=== PATIENT | female | born 1970 | race Caucasian/White ===

== ENCOUNTER → 2018-10-26 20:38 | Outpatient (CLI) | payer OTHER, SELFPAY ==
--- NOTE | 2018-10-26 20:43 | DI.MRI.S_ITS ---
PROCEDURE: MR ANKLE RT WO CON INDICATIONS: PAIN IN RIGHT ANKLE TECHNIQUE: Noncontrast sagittal T1 spin echo and T2 fast spin echo with fat saturation, axial proton density fast spin echo and T2 fast spin echo with fat saturation, coronal T1 spin echo and T2 fast spin echo with fat saturation through the ankle/hindfoot. COMPARISON: None. FINDINGS: Image quality: Excellent. Bones and joints: No bone marrow contusions or fractures. No hindfoot coalitions. No osteochondral injuries of the talar dome. No pathologic joint effusions. There is circumferential subcutaneous soft tissue swelling and edema. Talonavicular and diffuse mixed joint degeneration. Medial structures: The posterior tibialis, flexor digitorum longus, and flexor hallucis longus tendons are intact, however there is mild thickening intrasubstance signal change at the insertion of the posterior tibialis tendon. There is also posterior tibialis and flexor digitorum longus tenosynovitis. The posterior tibial neurovascular bundle appears normal within the tarsal tunnel, without extrinsic mass effect. The deep layer (anterior and posterior tibiotalar ligaments) and superficial layer (tibionavicular, tibiospring, and tibiocalcaneal ligaments) of the deltoid ligament appear normal. The spring ligament components (superomedial calcaneonavicular, medioplantar oblique calcaneonavicular, and inferoplantar longitudinal ligaments) are intact. Lateral structures: The anterior talofibular demonstrates mild intrasubstance signal change in keeping with age indeterminate sprain. The calcaneofibular, and posterior talofibular ligaments appear intact. More superiorly, the anterior and posterior tibiofibular ligaments appear intact, as is the intermalleolar ligament. The tibiofibular syndesmosis is normal in width at 2 mm or less. The peroneus longus and brevis tendons demonstrate normal location and morphology. There is trace surrounding fluid in keeping with low-grade peroneal tenosynovitis. Adjacent bony peroneal tubercle and retrotrochlear prominence are normal in size. The sinus tarsi demonstrates normal fatty signal, without edema, fibrosis, or cyst formation. Visualized sinus tarsi components (cervical ligament, interosseous talocalcaneal ligament, roots of the inferior extensor retinaculum) appear normal. The calcaneonavicular and calcaneocuboid components of the bifurcate ligament appear intact. The dorsal calcaneocuboid ligament appears intact. Anterior structures: The tibialis anterior, extensor hallucis longus, and extensor digitorum longus tendons appear intact. The dorsal talonavicular ligament appears intact. Posterior and plantar structures: Achilles tendon is intact. Thickening of the medial band of the plantar fascia in keeping with plantar fasciitis. IMPRESSION: Severe circumferential subcutaneous soft tissue cellulitis. Mild posterior tibialis insertional tendinopathy. Posterior tibialis and flexor digitorum longus tenosynovitis. Medial band plantar fasciitis. Age-indeterminate low-grade sprain of the anterior talofibular ligament. Dictated by: Arun Miles M.D. on 10/27/2018 at 9:33 Approved by: Arun Miles M.D. on 10/27/2018 at 10:19
== END ==
PROVIDERS: Family Provider Family Medicine; PCP Family Medicine; Visit Provider Physician Assistant
DX: M25.571 Pain in right ankle and joints of right foot (principal); L03.115 Cellulitis of right lower limb; M65.861 Other synovitis and tenosynovitis, right lower leg; M72.2 Plantar fascial fibromatosis; S93.491A Sprain of other ligament of right ankle, initial encounter
CPT/HCPCS: 73721

== ENCOUNTER 2020-01-09 00:23 | Emergency (ER) | payer OTHER, SELFPAY ==
--- NOTE | 2020-01-09 00:35 | DI.CT.S_ITS ---
PROCEDURE: CT ABDOMEN PELVIS W CON INDICATIONS: Left-sided abdominal pain with bloody diarrhea TECHNIQUE: After the administration of intravenous contrast, 5 mm thick sections acquired from the diaphragm to the symphysis. 5 mm coronal and sagittal reformats were acquired. For radiation dose reduction, the following was used: automated exposure control, adjustment of mA and/or kV according to patient size. COMPARISON: [facility], CT, ABDOMEN/PELVIS WITH CONTRAST, 08/03/2010, 23:03. FINDINGS: Image quality: Excellent. ABDOMEN: Lung bases: Mild left basilar scars/atelectasis. Heart size is normal. Solid organs: Liver is normal in size and enhancement. Gallbladder is normal. Biliary system is non dilated. Pancreas enhances normally. Spleen is normal in size and enhancement. No adrenal nodules. Kidneys demonstrate normal size and enhancement, without hydronephrosis. Peritoneum and bowel: There is wall thickening and pericolonic stranding involving the transverse colon, splenic fracture and descending colon, consistent with colitis. Bowel loops demonstrate normal caliber. There are scattered colonic diverticula. No CT findings to suggest acute diverticulitis. No free fluid or air. Nodes and vessels: No retroperitoneal or mesenteric adenopathy by size criteria. Aorta and inferior vena cava are normal in size. Miscellaneous: There is a small fat containing umbilical hernia. PELVIS: Genitourinary: Bladder wall thickness is normal. The uterus is absent, consistent with hysterectomy. Ovaries are not well seen. No free fluid in pelvis. Miscellaneous: No inguinal hernias or adenopathy. Bones: No suspicious bony lesions. No vertebral body compression fractures. IMPRESSION: 1. Thickening and pericolonic stranding involving the transverse colon, splenic fracture and descending colon, consistent with colitis. 2. Diverticulosis without diverticulitis. 3. Hysterectomy. No significant discrepancy with the security shift manager radiology preliminary report. Dictated by: Reinier Benavides M.D. on 01/09/2020 at 8:35 Approved by: Reinier Benavides M.D. on 01/09/2020 at 8:45
--- NOTE | 2020-01-09 00:39 | ED.GENADULT ---
HPI - General Adult General Chief complaint: Abdominal Pain Stated complaint: watery/bloody diarrhea x 10 days side pain l Time Seen by Provider: 01/09/20 00:33 Source: patient Mode of arrival: Ambulatory Limitations: no limitations History of Present Illness HPI narrative: 49-year-old female here for evaluation of approximately 10 days of diarrhea. She does report that there has been some blood in the diarrhea. Over the past 24 hours she has developed left-sided abdominal pain. She does have a history of diverticulitis. Has had a colon resection secondary to this in the past. Earlier this month she completed a course of azithromycin for an upper respiratory infection. After this is when she developed the diarrhea. No recent travel. She has seen her primary doctor for this. Has had stool samples taken. They are currently pending. She came in this evening because of the left side of abdominal pain. Related Data Home Medications Medication Instructions Recorded Confirmed CHOLECALCIFEROL (VITAMIN D3) 1 tab PO Q DAY #0 08/20/10 05/14/19 (Vitamin D3) Esomeprazole Magnesium (Nexium) 40 mg PO QDAY #0 08/20/10 FLUTICASONE 50MCG BERRY INH- 1 spray INTRANASAL QDAY #0 08/20/10 (FLUTICASONE PROPIONATE) MULTIVITAMIN (Multivitamin 1 cap PO EVERY DAY #0 08/20/10 -) Methylphenidate Hydrochloride 10 mg PO QDAY #0 08/20/10 (Ritalin/Concerta) [ACIDOPHILUS PROBIOT] 1 tab PO Q DAY #0 08/20/10 [DHEA] 25 mg PO Q DAY #0 08/20/10 [FISH OIL] 1,200 mg PO Q DAY #0 08/20/10 [FLAXSEED OIL] 1,000 mg PO Q DAY #0 08/20/10 [SOY LECHITHIN] 1,200 mg PO Q DAY #0 08/20/10 Airborne PO DAILY 05/14/19 05/14/19 B12 melt 5,000 mcg PO 05/14/19 05/14/19 Jose Antonio Red joint care 1 tab PO 05/14/19 05/14/19 Turmeric/ w curcumin 2,000 mg PO DAILY 05/14/19 05/14/19 [LLYSINE] 1,000 mg PO Q DAY #0 05/14/19 05/14/19 cinnamon bark 500 mg capsule 2,000 mg PO DAILY cap 05/14/19 05/14/19 coenzyme Q10 400 mg capsule 400 mg PO DAILY 05/14/19 05/14/19 flaxseed oil 1,000 mg capsule 1,400 mg PO DAILY cap 05/14/19 05/14/19 meloxicam 15 mg tablet 15 mg PO DAILY 05/14/19 05/14/19 Allergies Allergy/AdvReac Type Severity Reaction Status Date / Time Iodine Allergy Unknown Uncoded 05/14/19 13:17 PCN (penicillin) Allergy Unknown Uncoded 05/14/19 13:17 Procaine Allergy Unknown Uncoded 05/14/19 13:17 Review of Systems Constitutional Constitutional: Denies fever(s) Cardiovascular Cardiovascular: Denies chest pain and Denies dyspnea Respiratory Respiratory: Denies dyspnea Gastrointestinal Gastrointestinal: Reports abdominal pain, Reports diarrhea and Denies nausea Genitourinary Genitourinary: Denies dysuria Musculoskeletal Musculoskeletal: Denies myalgias and Denies arthralgias Integumentary/Breasts Skin/Breast: Denies lesions and Denies rash Neurologic Neurologic: Denies behavioral changes Psychiatric Psychiatric: Denies behavioral changes Hematologic/Lymphatic Hematologic/Lymphatic: Denies easy bleeding and Denies easy bruising Patient History Medical History Diverticulitis (Acute) Social History Smoking Status: Never smoker Exam Initial Vital Signs Initial Vital Signs: Vital Signs Temperature 98.8 F 01/09/20 00:51 Pulse Rate 88 01/09/20 00:51 Respiratory Rate 17 01/09/20 00:51 Blood Pressure 133/84 01/09/20 00:51 Pulse Oximetry 99 01/09/20 00:51 Const General: cooperative and comfortable Limitations: mental status not altered Resp Effort & Inspection: normal respiratory effort Auscultation: clear to auscultation bilaterally Cardio Rate: regular rate Rhythm: regular rhythm GI Inspection: non-distended Palpation: soft, No firm and tender (Left lower quadrant) Skin Lesions: no lesions Rashes: no rashes Neuro General: alert and awake Cognition: normal cognition Speech: speech normal Extrem General: normal to inspection and capillary refill normal Psych Appearance: grossly normal and well kempt Course Orders Ordered: ED Orders 01/09/20 00:35 CT abdomen pelvis w con Stat EKG-12 Lead Stat 01/09/20 01:25 Complete Blood Count AUTO DIFF Stat Comprehensive Metabolic Panel Stat Lactate (Lactic Acid) Stat Lipase Stat Test Serum,Qual Stat Discontinued Medications Diphenhydramine HCl (Benadryl) 25 mg IV NOW ONE Stop: 01/09/20 00:44 Last Admin: 01/09/20 01:52 Dose: 25 mg Documented by: ÓSCAR Sodium Chloride (Normal Saline 0.9%) 1,000 mls @ 1,000 mls/hr IV BOLUS ONE Stop: 01/09/20 01:32 Last Admin: 01/09/20 02:23 Dose: 1,000 mls/hr Documented by: ÓSCAR Vital Signs Vital signs: Vital Signs - 8 hr 01/09/20 00:51 Temperature 98.8 F Pulse Rate 88 Respiratory Rate 17 Blood Pressure 133/84 Pulse Oximetry 99 Medical Decision Making Lab Data Lab results reviewed: Yes I reviewed the patient's lab results. Result diagrams: 01/09/20 01:25 01/09/20 01:25 Labs: Lab Results 01/09/20 01/09/20 01/09/20 Range/Units 01:25 01:25 01:25 WBC 12.1 H (4.5-11.0) X10^3/uL RBC 4.58 (4.0-5.2) X10^6/uL Hgb 12.7 (12.0-16.0) g/dL Hct 38.5 (36-46) % MCV 84.1 (80-100) fL MCH 27.6 (26-34) PG MCHC 32.9 (30-36) % RDW 13.6 (11.6-14.8) % Plt Count 305 (150-400) X10^3/uL Neut % (Auto) 69.6 (50-75) % Lymph % (Auto) 17.9 L (25-40) % [place] % (Auto) 7.6 (3-14) % Eos % (Auto) 4.4 H (2-4) % Baso % (Auto) 0.5 (0-2) % Neut # (Auto) 8400 H (7404-1641) /uL Lymph # (Auto) 2200 (8633-6651) /uL [place] # (Auto) 900 (0-900) /uL Eos # (Auto) 500 H (0-450) /uL Baso # (Auto) 100 (0-100) /uL Sodium 138 (137-145) mmol/L Potassium 3.6 (3.4-5.1) mmol/L Chloride 102 (98-107) mmol/L Carbon Dioxide 27 (22-32) mmol/L BUN 8 (7-17) mg/dL Creatinine 1.10 H (0.52-1.04) mg/dL Estimated GFR 52.6 L (>60) mL/min BUN/Creatinine Ratio 7.3 (6-22) Glucose 97 (70-100) mg/dL Lactate 1.2 (0.7-2.1) mmol/L Calcium 9.1 (8.4-10.2) mg/dL Total Bilirubin 1.0 (0.2-1.3) mg/dL AST 22 (14-36) IU/L ALT 10 (<35) IU/L Alkaline Phosphatase 149 H (38-126) U/L Total Protein 7.5 (6.3-8.2) g/dL Albumin 4.0 (3.5-5.0) g/dL Globulin 3.5 (1.7-4.1) g/dL Albumin/Globulin Ratio 1.1 (1.0-2.8) Lipase 47 (23-300) U/L Serum , Qual (Negative) 01/09/20 Range/Units 01:25 WBC (4.5-11.0) X10^3/uL RBC (4.0-5.2) X10^6/uL Hgb (12.0-16.0) g/dL Hct (36-46) % MCV (80-100) fL MCH (26-34) PG MCHC (30-36) % RDW (11.6-14.8) % Plt Count (150-400) X10^3/uL Neut % (Auto) (50-75) % Lymph % (Auto) (25-40) % [place] % (Auto) (3-14) % Eos % (Auto) (2-4) % Baso % (Auto) (0-2) % Neut # (Auto) (5381-6822) /uL Lymph # (Auto) (1253-6574) /uL [place] # (Auto) (0-900) /uL Eos # (Auto) (0-450) /uL Baso # (Auto) (0-100) /uL Sodium (137-145) mmol/L Potassium (3.4-5.1) mmol/L Chloride (98-107) mmol/L Carbon Dioxide (22-32) mmol/L BUN (7-17) mg/dL Creatinine (0.52-1.04) mg/dL Estimated GFR (>60) mL/min BUN/Creatinine Ratio (6-22) Glucose (70-100) mg/dL Lactate (0.7-2.1) mmol/L Calcium (8.4-10.2) mg/dL Total Bilirubin (0.2-1.3) mg/dL AST (14-36) IU/L ALT (<35) IU/L Alkaline Phosphatase (38-126) U/L Total Protein (6.3-8.2) g/dL Albumin (3.5-5.0) g/dL Globulin (1.7-4.1) g/dL Albumin/Globulin Ratio (1.0-2.8) Lipase (23-300) U/L Serum , Qual Negative (Negative) Imaging Data CT scan - abdomen/pelvis: Radiologist's Impression: Colon wall thickening consistent with colitis ECG Data Attestation: I personally reviewed and interpreted this ECG as follows: Prior ECG tracings: not available for review Interpretation: Sinus rhythm Ventricular rate 83 Normal QRS Normal QTC No ST T wave changes MDM Narrative Medical decision making narrative: Patient has a fairly benign abdominal exam. Has a slight leukocytosis which can be explained by the colitis. Patient was unable to provide a stool sample for us however she does have 1 pending with her primary care provider. We will hold on any antibiotics until this results. We did discuss colitis. No indication for admission to the hospital. We did discuss conservative treatment. Patient and who is at bedside expressed understanding and agreement. Discharge Plan Departure Patient Disposition: Home Clinical Impression: Colitis Instructions: Diarrhea Activity Restrictions/Additional Instructions: Recommend that you increase your fluid intake. We will hold on any antibiotics until the stool sample that you provided your primary provider results. Please contact your primary provider for a follow-up. Return to the emergency department for any new or worsening symptoms Prescriptions: No Action Esomeprazole Magnesium (Nexium) 40 mg PO QDAY Qty: 0 RF: 0 FLUTICASONE 50MCG BERRY INH- (FLUTICASONE PROPIONATE) 1 spray Intranasal QDAY Qty: 0 RF: 0 Methylphenidate Hydrochloride (Ritalin/Concerta) 10 mg PO QDAY Qty: 0 RF: 0 [FISH OIL] 1,200 mg PO Q DAY Qty: 0 RF: 0 [DHEA] 25 mg PO Q DAY Qty: 0 RF: 0 [FLAXSEED OIL] 1,000 mg PO Q DAY Qty: 0 RF: 0 [SOY LECHITHIN] 1,200 mg PO Q DAY Qty: 0 RF: 0 MULTIVITAMIN (Multivitamin -) 1 cap PO EVERY DAY Qty: 0 RF: 0 CHOLECALCIFEROL (VITAMIN D3) (Vitamin D3) 1 tab PO Q DAY Qty: 0 RF: 0 [ACIDOPHILUS PROBIOT] 1 tab PO Q DAY Qty: 0 RF: 0 [LLYSINE] 1,000 mg PO Q DAY Qty: 0 RF: 0 meloxicam 15 mg tablet 15 mg PO DAILY RF: 0 Jose Antonio Red joint care 1 tab PO RF: 0 B12 melt 5,000 mcg PO RF: 0 cinnamon bark 500 mg capsule 2,000 mg PO DAILY RF: 0 coenzyme Q10 [Co Q-10] 400 mg capsule 400 mg PO DAILY RF: 0 Airborne PO DAILY RF: 0 Turmeric/ w curcumin 2,000 mg PO DAILY RF: 0 flaxseed oil 1,000 mg capsule 1,400 mg PO DAILY RF: 0 Referrals: Randee Oconnell DO [Primary Care Provider] -
[2020-01-09 00:51] VITALS: BP 133/84; PULSE 88; RESP 17; TEMP 37.1; O2SAT 99; BMI 48.6
[2020-01-09 01:31] LABS: Add Manual Diff / Slide Review NO; Basophils Absolute Auto 100 /uL (0-100); Basophils Percent Auto 0.5 % (0-2); Eosinophils Absolute Auto 500 /uL (0-450); Eosinophils Percent Auto 4.4 % (2-4); Hematocrit 38.5 % (36-46); Hemoglobin 12.7 g/dL (12.0-16.0); Lymphocytes Absolute Auto 2200 /uL (1100-4500); Lymphocytes Percent Auto 17.9 % (25-40); Mean Corpuscular HGB Conc 32.9 % (30-36); Mean Corpuscular Hemoglobin 27.6 PG (26-34); Mean Corpuscular Volume 84.1 fL (80-100); Monocytes Absolute Auto 900 /uL (0-900); Monocytes Percent Auto 7.6 % (3-14); Neutrophils Absolute Auto 8400 /uL (1500-7000); Neutrophils Percent Auto 69.6 % (50-75); Platelet Count 305 X10^3/uL (150-400); Red Blood Cell Count 4.58 X10^6/uL (4.0-5.2); Red Cell Distribution Width 13.6 % (11.6-14.8); White Blood Cell Count 12.1 X10^3/uL (4.5-11.0)
[2020-01-09 01:43] LABS: Alanine Aminotransferase 10 IU/L (<35); Albumin Globulin Ratio 1.1 (1.0-2.8); Alkaline Phosphatase 149 U/L (38-126); Aspartate Aminotransferase 22 IU/L (14-36); BUN Creatinine Ratio 7.3 (6-22); Blood Urea Nitrogen 8 mg/dL (7-17); Calcium 9.1 mg/dL (8.4-10.2); Carbon Dioxide 27 mmol/L (22-32); Chloride 102 mmol/L (98-107); Estimated Glomerular Filt Rate 52.6 mL/min (>60); Globulin 3.5 g/dL (1.7-4.1); Glucose 97 mg/dL (70-100); HEMOLYSIS 15 (0-50); Lactate (Lactic Acid) 1.2 mmol/L (0.7-2.1); Lipase 47 U/L (23-300); Potassium 3.6 mmol/L (3.4-5.1); Sodium 138 mmol/L (137-145); Total Protein 7.5 g/dL (6.3-8.2)
[2020-01-09 01:44] LABS: Pregnancy Test Serum,Qual Negative (Negative)
[2020-01-09] MEDS: diphenhydrAMINE 50 MG/ML VIAL 25 MG IV (01:52)
[2020-01-09] MEDS: SODIUM CHLORIDE 0.9% 1,000 ML 1000 ML IV (02:23)
[2020-01-09 03:10] VITALS: BP 134/64; PULSE 80; RESP 15; O2SAT 98
== END 2020-01-09 03:11 | disposition home or self-care (01) ==
PROVIDERS: Emergency Provider Emergency Medicine; Family Provider Family Medicine; PCP Family Medicine
DX: K52.9 Noninfective gastroenteritis and colitis, unspecified (principal); R10.9 Unspecified abdominal pain
CPT/HCPCS: 36415; 74177; 80053; 83605; 83690; 84703; 85025; 93005; 96361; 96374; 99284; J1200; Q9967

== ENCOUNTER 2020-01-10 16:23 | Emergency (ER) | payer OTHER, SELFPAY ==
[2020-01-10 16:29] VITALS: BP 159/80; PULSE 92; RESP 16; TEMP 37.1; O2SAT 99
--- NOTE | 2020-01-10 16:30 | PC.NURSE ---
standing bp 146/73 hr 107 asymptomatic.
--- NOTE | 2020-01-10 16:47 | ED_ITS ---
HPI - Nausea/Vomiting/Diarrhea <Charan Dealan, DO - Last Filed: 01/11/20 08:24> General Chief complaint: Nausea/Vomiting/Diarrhea Stated complaint: water, bloody stool, abdominal cramping Time Seen by Provider: 01/10/20 16:25 Source: patient and family Mode of arrival: Ambulatory Limitations: no limitations History of Present Illness HPI Narrative: 49-year-old female nonsmoker presents to the emergency department with her in the chief complaint of ongoing diarrhea for upwards of 2 weeks. She had been on a [place] and symptoms started soon thereafter have consisted significant numbers of loose stools daily, upwards of 15 with the presence of blood. She is fatigued but not profoundly dizzy upon standing and has had no fever or chills. She does have a history of diverticulitis and had a CT a few days ago confirming colitis. She was seen in follow-up and started on Flagyl of which she has taken a few doses. She denies any recent international travel, exposure to bad foods or others with similar symptoms. MD complaint: diarrhea Onset (ago): week(s) Description of Diarrhea: watery Location of pain: diffuse Severity: moderate Quality: cramping Relieving factors: none Exacerbating factors: none Associated symptoms: denies other symptoms Related Data Home Medications Medication Instructions Recorded Confirmed Acidophilus Probiotic 1 tab PO Q DAY #0 08/20/10 01/10/20 CHOLECALCIFEROL (VITAMIN D3) 1 tab PO Q DAY #0 08/20/10 01/10/20 (Vitamin D3) [FISH OIL] 1,200 mg PO Q DAY #0 08/20/10 01/10/20 methylphenidate HCl 10 mg PO TID #0 08/20/10 01/10/20 multivitamin 1 cap PO DAILY #0 08/20/10 01/10/20 Airborne 1 tab PO DAILY 05/14/19 01/10/20 Turmeric/ w curcumin 2,000 mg PO DAILY 05/14/19 01/10/20 [LLYSINE] 1,000 mg PO Q DAY #0 05/14/19 01/10/20 cinnamon bark 500 mg capsule 2,000 mg PO DAILY cap 05/14/19 01/10/20 coenzyme Q10 400 mg capsule 400 mg PO DAILY 05/14/19 01/10/20 meloxicam 15 mg tablet 15 mg PO DAILY 05/14/19 01/10/20 cyanocobalamin (vitamin B-12) 5,000 mcg SUBLINGUAL DAILY 01/10/20 01/10/20 [Vitamin B-12] cyclobenzaprine 5 mg PO DAILY PRN 01/10/20 01/10/20 gabapentin 600 mg PO TID 01/10/20 01/10/20 metronidazole 500 mg PO Q8H 01/10/20 01/10/20 Previous Rx's Medication Instructions Recorded ciprofloxacin HCl [Cipro] 500 mg PO BID #20 tab 01/10/20 Allergies Allergy/AdvReac Type Severity Reaction Status Date / Time iodine Allergy Unknown Verified 01/10/20 21:17 Penicillins Allergy Unknown Verified 01/10/20 21:17 procaine Allergy Unknown Verified 01/10/20 21:17 Review of Systems <Charan Brewer DO - Last Filed: 01/11/20 08:24> Constitutional Constitutional: Denies chills, Denies fatigue, Denies fever(s), Denies frequent falls, Denies lethargy, Reports poor appetite and Reports weakness Eyes Eyes: Denies change in vision, Denies eye discharge, Denies irritation and Denies loss of vision ENT Ears, Nose, Mouth, and Throat: Denies change in voice, Denies dizziness, Denies neck pain, Denies sore throat and Denies throat swelling Cardiovascular Cardiovascular: Denies chest pain, Denies irregular heart rhythm, Denies lightheadedness, Denies palpitations, Denies dyspnea, Denies dyspnea on exertion and Denies orthopnea Respiratory Respiratory: Denies cough, Denies dyspnea, Denies dyspnea on exertion and Denies wheezing Gastrointestinal Gastrointestinal: Reports abdominal pain, Denies change in bowel habits, Reports diarrhea, Denies nausea and Denies vomiting Genitourinary Genitourinary: Denies hematuria, Denies flank pain, Denies urinary incontinence and Denies urinary urgency Musculoskeletal Musculoskeletal: Denies back pain, Denies muscle weakness, Denies neck pain, Denies numbness and Denies tingling Integumentary/Breasts Skin/Breast: Denies pruritus, Denies erythema, Denies rash and Denies wounds Neurologic Neurologic: Denies behavioral changes, Denies confusion, Denies dizziness, Denies frequent falls, Denies loss of vision, Denies numbness, Denies tingling and Reports weakness Psychiatric Psychiatric: Denies anxiety, Denies behavioral changes, Denies confusion, Denies depression, Denies homicidal ideation and Denies suicidal ideation Endocrine Endocrine: Denies fatigue, Denies flushing and Denies palpitations Hematologic/Lymphatic Hematologic/Lymphatic: Denies easy bruising Allergic/Immunologic Allergic/Immunologic: Denies urticaria, Denies throat swelling and Denies wheezing Patient History <Charan Brewer DO - Last Filed: 01/11/20 08:24> Medical History Diverticulitis (Acute) Social History Smoking Status: Never smoker Smoking Status: Never smoker alcohol intake frequency: 0-2 drinks per day Substance Use Type: does not use Exam <Charan Brewer DO - Last Filed: 01/11/20 08:24> Narrative Exam Narrative: GENERAL: [49] year old patient appears stated age. Well- nourished, well-developed patient, in mild distress. Rubbing her abdomen, largely her left lower quadrant HEAD: Atraumatic. Normocephalic. EYES: Pupils equal round and reactive. Extraocular motions intact. No scleral icterus. No injection or drainage. ENT: Nose without bleeding, purulent drainage. Throat without erythema, tonsillar hypertrophy or exudate. Airway patent. NECK: Trachea midline. Non tender CARDIOVASCULAR: Regular rate and rhythm without murmurs, gallops, or rubs. RESPIRATORY: Clear to auscultation. Breath sounds equal bilaterally. No wheezes, rales, or rhonchi. GASTROINTESTINAL: Abdomen soft, non-tender, nondistended. EXTREMITIES: No edema or joint tenderness. BACK: Nontender without deformity or crepitance. No flank tenderness. NEURO: AOx3. SKIN: No rash or erythema of visible areas Initial Vital Signs Initial Vital Signs: Vital Signs Temperature 98.7 F 01/10/20 16:29 Pulse Rate 92 H 01/10/20 16:29 Respiratory Rate 16 01/10/20 16:29 Blood Pressure 159/80 H 01/10/20 16:29 Pulse Oximetry 99 01/10/20 16:29 <Claribel Jacobson MD - Last Filed: 01/10/20 21:21> Initial Vital Signs Initial Vital Signs: Vital Signs Temperature 98.7 F 01/10/20 16:29 Pulse Rate 92 H 01/10/20 16:29 Respiratory Rate 16 01/10/20 16:29 Blood Pressure 159/80 H 01/10/20 16:29 Pulse Oximetry 99 01/10/20 16:29 Course <Charan Brewer DO - Last Filed: 01/11/20 08:24> Orders Ordered: Discontinued Medications Ciprofloxacin (Cipro) 750 mg PO NOW ONE Stop: 01/10/20 21:06 Last Admin: 01/10/20 21:14 Dose: 750 mg Documented by: ELMA Cyclobenzaprine HCl (Flexeril) 5 mg PO NOW ONE Stop: 01/10/20 20:36 Last Admin: 01/10/20 20:42 Dose: 5 mg Documented by: ELMA Hydromorphone HCl (Dilaudid) 0.5 mg IV NOW ONE Stop: 01/10/20 20:25 Last Admin: 01/10/20 20:29 Dose: 0.5 mg Documented by: ELMA Ondansetron HCl (Zofran) 4 mg IV NOW ONE Stop: 01/10/20 20:36 Last Admin: 01/10/20 20:47 Dose: Not Given Documented by: ELMA Ondansetron HCl (Zofran Odt) 4 mg SL NOW ONE Stop: 01/10/20 20:49 Last Admin: 01/10/20 21:01 Dose: 4 mg Documented by: ELMA Vital Signs Vital signs: Vital Signs - 8 hr 01/10/20 16:29 01/10/20 19:49 Temperature 98.7 F Pulse Rate 92 H 86 Respiratory Rate 16 16 Blood Pressure 159/80 H Blood Pressure [Right Wrist] 138/74 Pulse Oximetry 99 99 <Claribel Jacobson MD - Last Filed: 01/10/20 21:21> Orders Ordered: Discontinued Medications Ciprofloxacin (Cipro) 750 mg PO NOW ONE Stop: 01/10/20 21:06 Last Admin: 01/10/20 21:14 Dose: 750 mg Documented by: ELMA Cyclobenzaprine HCl (Flexeril) 5 mg PO NOW ONE Stop: 01/10/20 20:36 Last Admin: 01/10/20 20:42 Dose: 5 mg Documented by: ELMA Hydromorphone HCl (Dilaudid) 0.5 mg IV NOW ONE Stop: 01/10/20 20:25 Last Admin: 01/10/20 20:29 Dose: 0.5 mg Documented by: ELMA Ondansetron HCl (Zofran) 4 mg IV NOW ONE Stop: 01/10/20 20:36 Last Admin: 01/10/20 20:47 Dose: Not Given Documented by: ELMA Ondansetron HCl (Zofran Odt) 4 mg SL NOW ONE Stop: 01/10/20 20:49 Last Admin: 01/10/20 21:01 Dose: 4 mg Documented by: ELMA Vital Signs Vital signs: Vital Signs - 8 hr 01/10/20 16:29 01/10/20 19:49 Temperature 98.7 F Pulse Rate 92 H 86 Respiratory Rate 16 16 Blood Pressure 159/80 H Blood Pressure [Right Wrist] 138/74 Pulse Oximetry 99 99 MDM - Nausea/Vomiting/Diarrhea <Charan Brewer DO - Last Filed: 01/11/20 08:24> Lab Data Result diagrams: 01/10/20 17:05 01/10/20 17:05 Labs: Lab Results 01/10/20 01/10/20 01/10/20 Range/Units 17:05 17:05 17:05 WBC 11.8 H (4.5-11.0) X10^3/uL RBC 4.17 (4.0-5.2) X10^6/uL Hgb 11.7 L (12.0-16.0) g/dL Hct 35.0 L (36-46) % MCV 84.1 (80-100) fL MCH 28.1 (26-34) PG MCHC 33.4 (30-36) % RDW 13.7 (11.6-14.8) % Plt Count 338 (150-400) X10^3/uL Neut % (Auto) 74.1 (50-75) % Lymph % (Auto) 12.3 L (25-40) % [place] % (Auto) 9.5 (3-14) % Eos % (Auto) 3.3 (2-4) % Baso % (Auto) 0.8 (0-2) % Neut # (Auto) 8800 H (9153-2352) /uL Lymph # (Auto) 1500 (2849-3221) /uL [place] # (Auto) 1100 H (0-900) /uL Eos # (Auto) 400 (0-450) /uL Baso # (Auto) 100 (0-100) /uL PT 13.4 H (10.1-12.7) SECONDS INR 1.2 (0.9-1.3) APTT 29 (26.4-36.2) SECONDS Sodium 136 L (137-145) mmol/L Potassium 3.5 (3.4-5.1) mmol/L Chloride 100 (98-107) mmol/L Carbon Dioxide 27 (22-32) mmol/L BUN 9 (7-17) mg/dL Creatinine 1.10 H (0.52-1.04) mg/dL Estimated GFR 52.6 L (>60) mL/min BUN/Creatinine Ratio 8.2 (6-22) Glucose 101 H (70-100) mg/dL Calcium 8.9 (8.4-10.2) mg/dL Total Bilirubin 0.8 (0.2-1.3) mg/dL AST 20 (14-36) IU/L ALT 10 (<35) IU/L Alkaline Phosphatase 143 H (38-126) U/L Total Protein 7.0 (6.3-8.2) g/dL Albumin 3.5 (3.5-5.0) g/dL Globulin 3.5 (1.7-4.1) g/dL Albumin/Globulin Ratio 1.0 (1.0-2.8) Lipase 30 (23-300) U/L Urine RBC (0-5/HPF) Urine WBC (0-5/HPF) Ur Squamous Epith Cells (0-5/HPF) Urine Bacteria (None) Ur Culture Indicated? Micro UA Comment Stl C. cayetanensis PCR (Not Detect) Stool Rotavirus (PCR) (Not Detect) Stool Adenovirus (PCR) (Not Detect) Stool Astrovirus (PCR) (Not Detect) Stool Cryptosporidium PCR (Not Detect) Stl E.coli Shiga Tox PCR (Not Detect) St Sh/Enteroin Ecoli PCR (Not Detect) Stool E coli O157 PCR Stl Enterotoxigenic E PCR (Not Detect) Stool EPEC (PCR) (Not Detect) Stl E. histolytica PCR (Not Detect) Stool Giardia Lamblia PCR (Not Detect) Stool Sapovirus (PCR) (Not Detect) Stl P. shigelloides PCR (Not Detect) St Y.enterocolitica PCR (Not Detect) Stool Vibrio (PCR) (Not Detect) Stl Vibrio cholerae PCR (Not Detect) Stl Enteroaggr Ecoli PCR (Not Detect) Stl Norovirus GI/GII PCR (Not Detect) Campylobacter (PCR) (Not Detect) C. difficile Tox (PCR) (Not Detect) Salmonella (PCR) (Not Detect) 01/10/20 01/10/20 Range/Units 18:18 18:18 WBC (4.5-11.0) X10^3/uL RBC (4.0-5.2) X10^6/uL Hgb (12.0-16.0) g/dL Hct (36-46) % MCV (80-100) fL MCH (26-34) PG MCHC (30-36) % RDW (11.6-14.8) % Plt Count (150-400) X10^3/uL Neut % (Auto) (50-75) % Lymph % (Auto) (25-40) % [place] % (Auto) (3-14) % Eos % (Auto) (2-4) % Baso % (Auto) (0-2) % Neut # (Auto) (0227-3270) /uL Lymph # (Auto) (3857-5060) /uL [place] # (Auto) (0-900) /uL Eos # (Auto) (0-450) /uL Baso # (Auto) (0-100) /uL PT (10.1-12.7) SECONDS INR (0.9-1.3) APTT (26.4-36.2) SECONDS Sodium (137-145) mmol/L Potassium (3.4-5.1) mmol/L Chloride (98-107) mmol/L Carbon Dioxide (22-32) mmol/L BUN (7-17) mg/dL Creatinine (0.52-1.04) mg/dL Estimated GFR (>60) mL/min BUN/Creatinine Ratio (6-22) Glucose (70-100) mg/dL Calcium (8.4-10.2) mg/dL Total Bilirubin (0.2-1.3) mg/dL AST (14-36) IU/L ALT (<35) IU/L Alkaline Phosphatase (38-126) U/L Total Protein (6.3-8.2) g/dL Albumin (3.5-5.0) g/dL Globulin (1.7-4.1) g/dL Albumin/Globulin Ratio (1.0-2.8) Lipase (23-300) U/L Urine RBC 0-1/hpf (0-5/HPF) Urine WBC 1-5/hpf (0-5/HPF) Ur Squamous Epith Cells 1-5 /hpf (0-5/HPF) Urine Bacteria Few (2-10) H (None) Ur Culture Indicated? Specimen cultured Micro UA Comment Carolyn esterase + Stl C. cayetanensis PCR Not detected (Not Detect) Stool Rotavirus (PCR) Not detected (Not Detect) Stool Adenovirus (PCR) Not detected (Not Detect) Stool Astrovirus (PCR) Not detected (Not Detect) Stool Cryptosporidium PCR Not detected (Not Detect) Stl E.coli Shiga Tox PCR Not detected (Not Detect) St Sh/Enteroin Ecoli PCR Not detected (Not Detect) Stool E coli O157 PCR Not Reportable Stl Enterotoxigenic E PCR Not detected (Not Detect) Stool EPEC (PCR) Not detected (Not Detect) Stl E. histolytica PCR Not detected (Not Detect) Stool Giardia Lamblia PCR Not detected (Not Detect) Stool Sapovirus (PCR) Not detected (Not Detect) Stl P. shigelloides PCR Not detected (Not Detect) St Y.enterocolitica PCR Not detected (Not Detect) Stool Vibrio (PCR) Not detected (Not Detect) Stl Vibrio cholerae PCR Not detected (Not Detect) Stl Enteroaggr Ecoli PCR Not detected (Not Detect) Stl Norovirus GI/GII PCR Not detected (Not Detect) Campylobacter (PCR) Not detected (Not Detect) C. difficile Tox (PCR) Not detected (Not Detect) Salmonella (PCR) Not detected (Not Detect) Urine Dip Bedside Urine Glucose Negative Bedside Urine Bilirubin - Negative Bedside Urine Ketone +/- 5 Urine Specific [place] 1.010 Bedside Urine Occult Blood +/- Bedside Urine pH 6.5 Bedside Urine Protein +/- 15 Bedside Urine Urobilinogen - Negative Bedside Urine Nitrite - Negative Bedside Urine Leukocytes + 70 Esterase <Claribel L Laursen, MD - Last Filed: 01/10/20 21:21> Medical Records Attestation: I reviewed the patient's medical records. Lab Data Attestation: I reviewed the patient's lab results. Labs: Lab Results 01/10/20 01/10/20 01/10/20 Range/Units 17:05 17:05 17:05 WBC 11.8 H (4.5-11.0) X10^3/uL RBC 4.17 (4.0-5.2) X10^6/uL Hgb 11.7 L (12.0-16.0) g/dL Hct 35.0 L (36-46) % MCV 84.1 (80-100) fL MCH 28.1 (26-34) PG MCHC 33.4 (30-36) % RDW 13.7 (11.6-14.8) % Plt Count 338 (150-400) X10^3/uL Neut % (Auto) 74.1 (50-75) % Lymph % (Auto) 12.3 L (25-40) % [place] % (Auto) 9.5 (3-14) % Eos % (Auto) 3.3 (2-4) % Baso % (Auto) 0.8 (0-2) % Neut # (Auto) 8800 H (4873-5949) /uL Lymph # (Auto) 1500 (4234-4496) /uL [place] # (Auto) 1100 H (0-900) /uL Eos # (Auto) 400 (0-450) /uL Baso # (Auto) 100 (0-100) /uL PT 13.4 H (10.1-12.7) SECONDS INR 1.2 (0.9-1.3) APTT 29 (26.4-36.2) SECONDS Sodium 136 L (137-145) mmol/L Potassium 3.5 (3.4-5.1) mmol/L Chloride 100 (98-107) mmol/L Carbon Dioxide 27 (22-32) mmol/L BUN 9 (7-17) mg/dL Creatinine 1.10 H (0.52-1.04) mg/dL Estimated GFR 52.6 L (>60) mL/min BUN/Creatinine Ratio 8.2 (6-22) Glucose 101 H (70-100) mg/dL Calcium 8.9 (8.4-10.2) mg/dL Total Bilirubin 0.8 (0.2-1.3) mg/dL AST 20 (14-36) IU/L ALT 10 (<35) IU/L Alkaline Phosphatase 143 H (38-126) U/L Total Protein 7.0 (6.3-8.2) g/dL Albumin 3.5 (3.5-5.0) g/dL Globulin 3.5 (1.7-4.1) g/dL Albumin/Globulin Ratio 1.0 (1.0-2.8) Lipase 30 (23-300) U/L Urine RBC (0-5/HPF) Urine WBC (0-5/HPF) Ur Squamous Epith Cells (0-5/HPF) Urine Bacteria (None) Ur Culture Indicated? Micro UA Comment Stl C. cayetanensis PCR (Not Detect) Stool Rotavirus (PCR) (Not Detect) Stool Adenovirus (PCR) (Not Detect) Stool Astrovirus (PCR) (Not Detect) Stool Cryptosporidium PCR (Not Detect) Stl E.coli Shiga Tox PCR (Not Detect) St Sh/Enteroin Ecoli PCR (Not Detect) Stool E coli O157 PCR Stl Enterotoxigenic E PCR (Not Detect) Stool EPEC (PCR) (Not Detect) Stl E. histolytica PCR (Not Detect) Stool Giardia Lamblia PCR (Not Detect) Stool Sapovirus (PCR) (Not Detect) Stl P. shigelloides PCR (Not Detect) St Y.enterocolitica PCR (Not Detect) Stool Vibrio (PCR) (Not Detect) Stl Vibrio cholerae PCR (Not Detect) Stl Enteroaggr Ecoli PCR (Not Detect) Stl Norovirus GI/GII PCR (Not Detect) Campylobacter (PCR) (Not Detect) C. difficile Tox (PCR) (Not Detect) Salmonella (PCR) (Not Detect) 01/10/20 01/10/20 Range/Units 18:18 18:18 WBC (4.5-11.0) X10^3/uL RBC (4.0-5.2) X10^6/uL Hgb (12.0-16.0) g/dL Hct (36-46) % MCV (80-100) fL MCH (26-34) PG MCHC (30-36) % RDW (11.6-14.8) % Plt Count (150-400) X10^3/uL Neut % (Auto) (50-75) % Lymph % (Auto) (25-40) % [place] % (Auto) (3-14) % Eos % (Auto) (2-4) % Baso % (Auto) (0-2) % Neut # (Auto) (3039-6094) /uL Lymph # (Auto) (4394-5503) /uL [place] # (Auto) (0-900) /uL Eos # (Auto) (0-450) /uL Baso # (Auto) (0-100) /uL PT (10.1-12.7) SECONDS INR (0.9-1.3) APTT (26.4-36.2) SECONDS Sodium (137-145) mmol/L Potassium (3.4-5.1) mmol/L Chloride (98-107) mmol/L Carbon Dioxide (22-32) mmol/L BUN (7-17) mg/dL Creatinine (0.52-1.04) mg/dL Estimated GFR (>60) mL/min BUN/Creatinine Ratio (6-22) Glucose (70-100) mg/dL Calcium (8.4-10.2) mg/dL Total Bilirubin (0.2-1.3) mg/dL AST (14-36) IU/L ALT (<35) IU/L Alkaline Phosphatase (38-126) U/L Total Protein (6.3-8.2) g/dL Albumin (3.5-5.0) g/dL Globulin (1.7-4.1) g/dL Albumin/Globulin Ratio (1.0-2.8) Lipase (23-300) U/L Urine RBC 0-1/hpf (0-5/HPF) Urine WBC 1-5/hpf (0-5/HPF) Ur Squamous Epith Cells 1-5 /hpf (0-5/HPF) Urine Bacteria Few (2-10) H (None) Ur Culture Indicated? Specimen cultured Micro UA Comment Carolyn esterase + Stl C. cayetanensis PCR Not detected (Not Detect) Stool Rotavirus (PCR) Not detected (Not Detect) Stool Adenovirus (PCR) Not detected (Not Detect) Stool Astrovirus (PCR) Not detected (Not Detect) Stool Cryptosporidium PCR Not detected (Not Detect) Stl E.coli Shiga Tox PCR Not detected (Not Detect) St Sh/Enteroin Ecoli PCR Not detected (Not Detect) Stool E coli O157 PCR Not Reportable Stl Enterotoxigenic E PCR Not detected (Not Detect) Stool EPEC (PCR) Not detected (Not Detect) Stl E. histolytica PCR Not detected (Not Detect) Stool Giardia Lamblia PCR Not detected (Not Detect) Stool Sapovirus (PCR) Not detected (Not Detect) Stl P. shigelloides PCR Not detected (Not Detect) St Y.enterocolitica PCR Not detected (Not Detect) Stool Vibrio (PCR) Not detected (Not Detect) Stl Vibrio cholerae PCR Not detected (Not Detect) Stl Enteroaggr Ecoli PCR Not detected (Not Detect) Stl Norovirus GI/GII PCR Not detected (Not Detect) Campylobacter (PCR) Not detected (Not Detect) C. difficile Tox (PCR) Not detected (Not Detect) Salmonella (PCR) Not detected (Not Detect) Urine Dip Bedside Urine Glucose Negative Bedside Urine Bilirubin - Negative Bedside Urine Ketone +/- 5 Urine Specific [place] 1.010 Bedside Urine Occult Blood +/- Bedside Urine pH 6.5 Bedside Urine Protein +/- 15 Bedside Urine Urobilinogen - Negative Bedside Urine Nitrite - Negative Bedside Urine Leukocytes + [address] scan - abdomen/pelvis: Radiologist's Impression: From 01/09/2020 IMPRESSION: 1. Thickening and pericolonic stranding involving the transverse colon, splenic fracture and descending colon, consistent with colitis. 2. Diverticulosis without diverticulitis. 3. Hysterectomy. No significant discrepancy with the nitrate operator radiology preliminary report. Dictated by: Reinier Benavides M.D. on 01/09/2020 at 8:35 MDM Narrative Medical decision making narrative: Care is assumed. Patient has had increasing bloody diarrhea for the past 3 days. She was seen 48 hours ago and had a CT scan with results as above. Returns because she continues to have significant diarrhea. Not having dramatic fevers, she is able to keep liquids and food down. Only minimal nausea and this responds well to Phenergan which she does have available to her at home. She is exceptionally sensitive to multiple medications. She finds that Flexeril helps with the abdominal cramping she is having. Labs are reviewed and patient is reexamined. She is uncomfortable but her belly does not have any rebound or guarding in al priscila is not a surgical abdomen at this time. We reviewed options including hospital admission versus discharge home. Her is available to help at home, she is able to eat and drink and she would prefer to go home. She is now had a total of 3 oral doses of Flagyl this was started yesterday. Will add Cipro to that with a prescription given. She declines any narcotics to help with the abdominal cramping. After a previous abdominal surgery she was told by the surgeon to avoid anti diarrheal medications but Pepto would be okay if she had her current diarrhea episodes. 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 Stool PCR has returned and there is no evidence of infectious diarrhea or C diff at this time. In full consultation with the patient and her she will be discharged home will continue the Flagyl, will add Cipro, we use Pepto to help with diarrheal acute symptoms and Phenergan that she has available at home to help with nausea. If at any point she is unable to keep food down, pain is getting uncontrollable or she clearly is getting worse with fevers or any altered mental status she will return to the hospital for presumed admission at that time. Discharge Plan Departure Patient Disposition: Home Clinical Impression: Colitis Discharge Date/Time: 01/10/20 21:32 Instructions: DI for Colitis Activity Restrictions/Additional Instructions: Thank you for coming in Your stool sample does not show an infectious diarrhea and specifically you do not have Clostridium difficile. Your CT scan does suggest an acute colitis and your white blood cell count suggests that this likely is bacterial. Please continue the Flagyl that you have already started and to this I am going to add Cipro 500 mg daily. You can use Pepto-Bismol to help with the diarrhea symptoms. Please do filll your prescription for the hemorrhoid medications to try to keep these under control. I would not use [id number] antidiarrheals besides Pepto-Bismol at this time. You can use the Phenergan that you have at home to help with nausea. Please make sure that you are drinking plenty of fluids, whether that is Pedialyte or Gatorade both are acceptable. Food that is plain an easy to digest will be most helpful until the diarrhea, pain and fevers have completely resolved and then you can increase your diet as your stomach allows. If you find that you are getting worse, bleeding more, more fevers, pain is uncontrollable, can't keep fluids or food down, or have any alteration to mental status it is important that you return to the emergency room and we evaluate further. I hope you heal quickly Prescriptions: New ciprofloxacin HCl [Cipro] 500 mg tablet 500 mg PO BID Qty: 20 RF: 0 No Action methylphenidate HCl 10 mg Tablet 10 mg PO TID Qty: 0 RF: 0 [FISH OIL] 1,200 mg PO Q DAY Qty: 0 RF: 0 multivitamin Capsule 1 cap PO DAILY Qty: 0 RF: 0 CHOLECALCIFEROL (VITAMIN D3) (Vitamin D3) 1 tab PO Q DAY Qty: 0 RF: 0 Acidophilus Probiotic 1 tab PO Q DAY Qty: 0 RF: 0 [LLYSINE] 1,000 mg PO Q DAY Qty: 0 RF: 0 cyclobenzaprine 5 mg tablet 5 mg PO DAILY PRN (Reason: Spasms) RF: 0 gabapentin 300 mg capsule 600 mg PO TID RF: 0 metronidazole 500 mg Tablet 500 mg PO Q8H RF: 0 cyanocobalamin (vitamin B-12) [Vitamin B-12] 5,000 mcg Tablet, Sublingual 5,000 mcg SUBLINGUAL DAILY RF: 0 meloxicam 15 mg tablet 15 mg PO DAILY RF: 0 cinnamon bark 500 mg capsule 2,000 mg PO DAILY RF: 0 coenzyme Q10 [Co Q-10] 400 mg capsule 400 mg PO DAILY RF: 0 Airborne 1 tab PO DAILY RF: 0 Turmeric/ w curcumin 2,000 mg PO DAILY RF: 0 Referrals: Randee Oconnlel DO [Primary Care Provider] -
[2020-01-10 17:16] LABS: Add Manual Diff / Slide Review NO; Basophils Absolute Auto 100 /uL (0-100); Basophils Percent Auto 0.8 % (0-2); Eosinophils Absolute Auto 400 /uL (0-450); Eosinophils Percent Auto 3.3 % (2-4); Hemoglobin 11.7 g/dL (12.0-16.0); Lymphocytes Absolute Auto 1500 /uL (1100-4500); Lymphocytes Percent Auto 12.3 % (25-40); Mean Corpuscular HGB Conc 33.4 % (30-36); Mean Corpuscular Hemoglobin 28.1 PG (26-34); Mean Corpuscular Volume 84.1 fL (80-100); Monocytes Absolute Auto 1100 /uL (0-900); Monocytes Percent Auto 9.5 % (3-14); Neutrophils Absolute Auto 8800 /uL (1500-7000); Neutrophils Percent Auto 74.1 % (50-75); Platelet Count 338 X10^3/uL (150-400); Red Blood Cell Count 4.17 X10^6/uL (4.0-5.2); Red Cell Distribution Width 13.7 % (11.6-14.8); White Blood Cell Count 11.8 X10^3/uL (4.5-11.0)
[2020-01-10 17:26] LABS: INR 1.2 (0.9-1.3); Prothrombin Time 13.4 SECONDS (10.1-12.7)
[2020-01-10 17:28] LABS: Alanine Aminotransferase 10 IU/L (<35); Albumin 3.5 g/dL (3.5-5.0); Alkaline Phosphatase 143 U/L (38-126); Aspartate Aminotransferase 20 IU/L (14-36); BUN Creatinine Ratio 8.2 (6-22); Bilirubin Total 0.8 mg/dL (0.2-1.3); Blood Urea Nitrogen 9 mg/dL (7-17); Calcium 8.9 mg/dL (8.4-10.2); Carbon Dioxide 27 mmol/L (22-32); Chloride 100 mmol/L (98-107); Estimated Glomerular Filt Rate 52.6 mL/min (>60); Globulin 3.5 g/dL (1.7-4.1); Glucose 101 mg/dL (70-100); HEMOLYSIS < 15 (0-50); Lipase 30 U/L (23-300); PTT Partial Thromboplastin Tim 29 SECONDS (26.4-36.2); Potassium 3.5 mmol/L (3.4-5.1); Sodium 136 mmol/L (137-145)
[2020-01-10 19:20] LABS: Bacteria Urine Few (2-10); Culture Indicated Urine Specimen Cultured; RBC Urine 0-1/HPF (0-5/HPF); Squamous Epithelial Cell Urine 1-5 /HPF (0-5/HPF); Urine Comments LEU ESTERASE +; WBC Urine 1-5/HPF (0-5/HPF)
[2020-01-10 19:49] VITALS: BP 138/74; PULSE 86; RESP 16; O2SAT 99
[2020-01-10 20:27] LABS: Campylobacter Not Detected (Not Detect); Clostridium difficile toxin AB Not Detected (Not Detect); Enteroaggregative E.coli Not Detected (Not Detect); Enteropathogenic E.coli Not Detected (Not Detect); Enterotoxigenic E.coli It/st Not Detected (Not Detect); Plesiomonsa shigelloides Not Detected (Not Detect); Salmonella Not Detected (Not Detect); Shiga-like toxin-prod E.coli Not Detected (Not Detect); Vibrio Not Detected (Not Detect); Vibrio cholerae Not Detected (Not Detect); Yersinia enterocolitica Not Detected (Not Detect)
[2020-01-10 20:28] LABS: Adenovirus F 40/41 Not Detected (Not Detect); Astrovirus Not Detected (Not Detect); Cryptosporidium Not Detected (Not Detect); Cyclospora cayetanensis Not Detected (Not Detect); Entamoeba histolytica Not Detected (Not Detect); Giardia lamblia Not Detected (Not Detect); Norovirus GI/GII Not Detected (Not Detect); Rotavirus A Not Detected (Not Detect); Sapovirus Not Detected (Not Detect); Shigella/Enteroinvasive E.coli Not Detected (Not Detect)
[2020-01-10] MEDS: HYDROMORPHONE 0.5 MG INJ IV (20:29)
[2020-01-10] MEDS: CYCLOBENZAPRINE 5 MG TABLET PO (20:42)
[2020-01-10] MEDS: ONDANSETRON 4 MG ODT SL (21:01)
[2020-01-10] MEDS: CIPROFLOXACIN 250 MG TABLET 750 MG PO (21:14)
[2020-01-10 21:23] VITALS: BP 129/91; PULSE 98; RESP 18; O2SAT 93
== END 2020-01-10 21:32 | disposition home or self-care (01) ==
PROVIDERS: Emergency Medicine; Emergency Provider Emergency Medicine; Family Provider Family Medicine; PCP Family Medicine
DX: K52.9 Noninfective gastroenteritis and colitis, unspecified (principal)
CPT/HCPCS: 36415; 80053; 81003; 81015; 83690; 85025; 85610; 85730; 87086; 87507; 93005; 96374; 99284; J1170; J2405

== ENCOUNTER 2020-07-02 13:28 | Inpatient (IN) | payer OTHER, SELFPAY ==
[2020-07-02] VITALS (15 sets, daily range): BP systolic 120–162; BP diastolic 64–88; PULSE 80–93; RESP 16–24; TEMP 36.4–36.7; O2SAT 81–100; BMI 43.3
--- NOTE | 2020-07-02 13:59 | ED_ITS ---
HPI - Nausea/Vomiting/Diarrhea General Chief complaint: Nausea/Vomiting/Diarrhea Stated complaint: pnuemonia, meds not helping, feels worse Time Seen by Provider: 07/02/20 13:44 Source: patient Mode of arrival: Ambulatory History of Present Illness HPI Narrative: Patient complains of nonbloody nausea vomiting but has bloody diarrhea for the past 2 weeks. Patient seen by [facility] physician 2 weeks ago diagnosed with pneumonia by x-ray started doxycycline in 3 days later started nausea vomiting diarrhea. Patient is very sensitive to antibiotics with stomach/GI system upset. Decreased urine output. Has felt very tired and weak. Hemorrhoids have flared up in primary care has tried medication without effect. MD complaint: nausea, vomiting and diarrhea Related Data Home Medications Medication Instructions Recorded Confirmed Acidophilus Probiotic 1 tab PO Q DAY #0 08/20/10 01/10/20 CHOLECALCIFEROL (VITAMIN D3) 1 tab PO Q DAY #0 08/20/10 01/10/20 (Vitamin D3) [FISH OIL] 1,200 mg PO Q DAY #0 08/20/10 01/10/20 methylphenidate HCl 10 mg PO TID #0 08/20/10 01/10/20 multivitamin 1 cap PO DAILY #0 08/20/10 01/10/20 Airborne 1 tab PO DAILY 05/14/19 01/10/20 Turmeric/ w curcumin 2,000 mg PO DAILY 05/14/19 01/10/20 [LLYSINE] 1,000 mg PO Q DAY #0 05/14/19 01/10/20 cinnamon bark 500 mg capsule 2,000 mg PO DAILY cap 05/14/19 01/10/20 coenzyme Q10 400 mg capsule 400 mg PO DAILY 05/14/19 01/10/20 meloxicam 15 mg tablet 15 mg PO DAILY 05/14/19 01/10/20 cyanocobalamin (vitamin B-12) 5,000 mcg SUBLINGUAL DAILY 01/10/20 01/10/20 [Vitamin B-12] cyclobenzaprine 5 mg PO DAILY PRN 01/10/20 01/10/20 gabapentin 600 mg PO TID 01/10/20 01/10/20 metronidazole 500 mg PO Q8H 01/10/20 01/10/20 Previous Rx's Medication Instructions Recorded ciprofloxacin HCl [Cipro] 500 mg PO BID #20 tab 01/10/20 Allergies Allergy/AdvReac Type Severity Reaction Status Date / Time iodine Allergy Unknown Verified 01/10/20 21:17 Penicillins Allergy Unknown Verified 01/10/20 21:17 procaine Allergy Unknown Verified 01/10/20 21:17 Review of Systems Review of Systems Narrative: GENERAL: Denies chills, fatigue, malaise, fever, sweats. HEENT: Denies sinus pain, ear pain, sore throat, difficulty swallowing, dizziness. RESPIRATORY: Denies dyspnea, cough, wheezing, hemoptysis, sputum. CARDIOVASCULAR: Denies chest pain, palpitations, orthopnea, edema, GASTROINTESTINAL: Complains of nausea, vomiting, abdominal pain, bloody diarrhea, denies constipation : Denies dysuria, frequency, incontinence, hematuria, urinary retention. MUSCULOSKELETAL: denies weakness, joint pain, or bony pain SKIN: Denies rash, skin lesions, or other NEUROLOGIC: Denies weakness, headache, numbness, change in speech, confusion, seizures, incoordination. PSYCHIATRIC: No concerning psychosocial issues. ROS Unobtainable: All systems reviewed & are unremarkable except as noted in HPI and below Patient History Medical History Diverticulitis (Acute) Social History Smoking Status: Never smoker Smoking Status: Never smoker alcohol intake frequency: 0-2 drinks per day Substance Use Type: does not use Exam Narrative Exam Narrative: GENERAL: patient appears stated age. Well-nourished, well- developed patient, in no distress, not toxic HEAD: Atraumatic. Normocephalic. EYES: Pupils equal round and reactive. Extraocular motions intact. No scleral icterus. No injection or drainage. ENT: Nose without bleeding, purulent drainage. Throat without erythema, tonsillar hypertrophy or exudate. Airway patent. Tongue with thrush NECK: Trachea midline. Non tender CARDIOVASCULAR: Regular rate and rhythm without murmurs, gallops, or rubs. RESPIRATORY: Clear to auscultation. Breath sounds equal bilaterally. No wheezes, rales, or rhonchi. GASTROINTESTINAL: Abdomen soft, non-tender, nondistended. 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 Multiple external tender hemorrhoids. Not bleeding at this time. Some are reducible but patient unable to tolerate further efforts. EXTREMITIES: No edema or joint tenderness. BACK: Nontender without deformity or crepitance. No flank tenderness. NEURO: AOx3. SKIN: No rash or erythema of visible areas PSYCH: Not anxious, is cooperative Initial Vital Signs Initial Vital Signs: Vital Signs Temperature 97.5 F L 07/02/20 13:35 Pulse Rate 93 H 07/02/20 13:35 Respiratory Rate 24 07/02/20 13:35 Blood Pressure 132/84 07/02/20 13:35 Pulse Oximetry 98 07/02/20 13:35 Course Course Course Narrative: Second episode of colitis this year. This episode more severe. Would benefit admission Decision to Admit Date: 07/02/20 Decision to Admit time: 16:22 Orders Ordered: ED Orders 07/02/20 13:57 XR chest 1V Stat 07/02/20 14:30 Complete Blood Count AUTO DIFF Stat Comprehensive Metabolic Panel Stat Lipase Stat Magnesium Stat Partial Thromboplastin Time Stat Procalcitonin Stat Prothrombin Time INR Stat Troponin & CK Cardiac Panel Stat 07/02/20 14:45 CT abdomen pelvis wo con Stat 07/02/20 16:50 Clostridium Difficile Tox PCR Stat Stool Culture Stat 07/02/20 17:06 Blood Culture Stat Discontinued Medications Sodium Chloride (Normal Saline 0.9%) 1,000 mls @ 1,000 mls/hr IV BOLUS ONE Stop: 07/02/20 14:55 Last Infusion: 07/02/20 16:00 Dose: 0 mls/hr Documented by: Admin: 07/02/20 14:40 Dose: 1,000 mls/hr Documented by: REYNA Metronidazole (Flagyl) 500 mg in 100 mls @ 100 mls/hr IV NOW ONE Stop: 07/02/20 16:44 Last Admin: 07/02/20 17:10 Dose: 100 mls/hr Documented by: KRIS Vancomycin HCl (Vancomycin) 1,000 mg in 200 mls @ 200 mls/hr IV NOW ONE Stop: 07/02/20 16:44 Ondansetron HCl (Zofran) 4 mg IV NOW ONE Stop: 07/02/20 13:57 Last Admin: 07/02/20 17:04 Dose: 4 mg Documented by: REYNA Potassium Chloride (Klor-Con M20) 40 meq PO NOW ONE Stop: 07/02/20 16:04 Last Admin: 07/02/20 17:10 Dose: 40 meq Documented by: BTONER Reevaluation(s) Reevaluation #1: No new issues. Not toxic appearing. Has been up and walking to the bathroom. at bedside Time: 16:22 Consultations Consultation #1: Spoke with hospitalist, Dr. Zavaleta, will admit Time: 16:22 Consultation #2: Spoke with general surgery Dr. Carranza, currently in the operating room. Will call back for further details. Time: 16:23 Consultation #3: Spoke with Dr. Carranza, he will follow-up patient Time: 17:15 Vital Signs Vital signs: Vital Signs - 8 hr 07/02/20 13:35 07/02/20 14:02 07/02/20 14:30 Temperature 97.5 F L Pulse Rate 93 H 80 80 Respiratory Rate 24 Blood Pressure 132/84 Pulse Oximetry 98 100 100 MDM - Nausea/Vomiting/Diarrhea Medical Records Attestation: I reviewed the patient's medical records. Lab Data Attestation: I reviewed the patient's lab results. Result diagrams: 07/02/20 14:30 07/02/20 14:30 Labs: Lab Results 07/02/20 07/02/20 07/02/20 Range/Units 14:30 14:30 14:30 WBC 10.1 (4.5-11.0) X10^3/uL RBC 4.19 (4.0-5.2) X10^6/uL Hgb 10.8 L (12.0-16.0) g/dL Hct 32.8 L (36-46) % MCV 78.3 L (80-100) fL MCH 25.8 L (26-34) PG MCHC 33.0 (30-36) % RDW 15.6 H (11.6-14.8) % Plt Count 580 H (150-400) X10^3/uL Neut % (Auto) 70.2 (50-75) % Lymph % (Auto) 18.2 L (25-40) % [place] % (Auto) 8.2 (3-14) % Eos % (Auto) 3.1 (2-4) % Baso % (Auto) 0.3 (0-2) % Neut # (Auto) 7100 H (0272-5384) /uL Lymph # (Auto) 1800 (2160-2951) /uL [place] # (Auto) 800 (0-900) /uL Eos # (Auto) 300 (0-450) /uL Baso # (Auto) 0 (0-100) /uL PT 13.9 H (10.1-12.7) SECONDS INR 1.2 (0.9-1.3) APTT 24 L D (26.4-36.2) SECONDS Sodium 135 L (137-145) mmol/L Potassium 3.1 L (3.4-5.1) mmol/L Chloride 96 L (98-107) mmol/L Carbon Dioxide 34 H (22-32) mmol/L BUN 12 (7-17) mg/dL Creatinine 1.07 H (0.52-1.04) mg/dL Estimated GFR 54.1 L (>60) mL/min BUN/Creatinine Ratio 11.2 (6-22) Glucose 95 (70-100) mg/dL Calcium 8.8 (8.4-10.2) mg/dL Magnesium (1.6-2.3) mg/dL Total Bilirubin 0.7 (0.2-1.3) mg/dL AST 35 (14-36) IU/L ALT 12 (<35) IU/L Alkaline Phosphatase 177 H (38-126) U/L Total Creatine Kinase (30-135) U/L CK-MB (CK-2) CK-MB (CK-2) Rel Index Troponin I (0.01-0.034) ng/mL Total Protein 6.3 (6.3-8.2) g/dL Albumin 2.8 L (3.5-5.0) g/dL Globulin 3.5 (1.7-4.1) g/dL Albumin/Globulin Ratio 0.8 L (1.0-2.8) Lipase 24 (23-300) U/L Procalcitonin (<0.5) ng/mL COVID-19 PCR (Negative) 07/02/20 07/02/20 07/02/20 Range/Units 14:30 14:30 14:30 WBC (4.5-11.0) X10^3/uL RBC (4.0-5.2) X10^6/uL Hgb (12.0-16.0) g/dL Hct (36-46) % MCV (80-100) fL MCH (26-34) PG MCHC (30-36) % RDW (11.6-14.8) % Plt Count (150-400) X10^3/uL Neut % (Auto) (50-75) % Lymph % (Auto) (25-40) % [place] % (Auto) (3-14) % Eos % (Auto) (2-4) % Baso % (Auto) (0-2) % Neut # (Auto) (9188-5528) /uL Lymph # (Auto) (4698-6975) /uL [place] # (Auto) (0-900) /uL Eos # (Auto) (0-450) /uL Baso # (Auto) (0-100) /uL PT (10.1-12.7) SECONDS INR (0.9-1.3) APTT (26.4-36.2) SECONDS Sodium (137-145) mmol/L Potassium (3.4-5.1) mmol/L Chloride (98-107) mmol/L Carbon Dioxide (22-32) mmol/L BUN (7-17) mg/dL Creatinine (0.52-1.04) mg/dL Estimated GFR (>60) mL/min BUN/Creatinine Ratio (6-22) Glucose (70-100) mg/dL Calcium (8.4-10.2) mg/dL Magnesium 2.6 H (1.6-2.3) mg/dL Total Bilirubin (0.2-1.3) mg/dL AST (14-36) IU/L ALT (<35) IU/L Alkaline Phosphatase (38-126) U/L Total Creatine Kinase 26 L (30-135) U/L CK-MB (CK-2) TNP CK-MB (CK-2) Rel Index TNP Troponin I < 0.012 (0.01-0.034) ng/mL Total Protein (6.3-8.2) g/dL Albumin (3.5-5.0) g/dL Globulin (1.7-4.1) g/dL Albumin/Globulin Ratio (1.0-2.8) Lipase (23-300) U/L Procalcitonin 0.24 (<0.5) ng/mL COVID-19 PCR (Negative) 07/02/20 Range/Units 15:50 WBC (4.5-11.0) X10^3/uL RBC (4.0-5.2) X10^6/uL Hgb (12.0-16.0) g/dL Hct (36-46) % MCV (80-100) fL MCH (26-34) PG MCHC (30-36) % RDW (11.6-14.8) % Plt Count (150-400) X10^3/uL Neut % (Auto) (50-75) % Lymph % (Auto) (25-40) % [place] % (Auto) (3-14) % Eos % (Auto) (2-4) % Baso % (Auto) (0-2) % Neut # (Auto) (0887-6156) /uL Lymph # (Auto) (1225-9877) /uL [place] # (Auto) (0-900) /uL Eos # (Auto) (0-450) /uL Baso # (Auto) (0-100) /uL PT (10.1-12.7) SECONDS INR (0.9-1.3) APTT (26.4-36.2) SECONDS Sodium (137-145) mmol/L Potassium (3.4-5.1) mmol/L Chloride (98-107) mmol/L Carbon Dioxide (22-32) mmol/L BUN (7-17) mg/dL Creatinine (0.52-1.04) mg/dL Estimated GFR (>60) mL/min BUN/Creatinine Ratio (6-22) Glucose (70-100) mg/dL Calcium (8.4-10.2) mg/dL Magnesium (1.6-2.3) mg/dL Total Bilirubin (0.2-1.3) mg/dL AST (14-36) IU/L ALT (<35) IU/L Alkaline Phosphatase (38-126) U/L Total Creatine Kinase (30-135) U/L CK-MB (CK-2) CK-MB (CK-2) Rel Index Troponin I (0.01-0.034) ng/mL Total Protein (6.3-8.2) g/dL Albumin (3.5-5.0) g/dL Globulin (1.7-4.1) g/dL Albumin/Globulin Ratio (1.0-2.8) Lipase (23-300) U/L Procalcitonin (<0.5) ng/mL COVID-19 PCR Negative (Negative) Point of Care Testing Test Results Negative Urine Dip Bedside Urine Glucose Negative Bedside Urine Bilirubin - Negative Bedside Urine Ketone - Negative Urine Specific [place] 1.010 Bedside Urine Occult Blood ++ Bedside Urine pH 6.0 Bedside Urine Protein +/- 15 Bedside Urine Urobilinogen - Negative Bedside Urine Nitrite - Negative Bedside Urine Leukocytes ++ 125 Esterase Imaging Data Chest x-ray: Radiologist's Impression: [address] [address] XRay Report Signed Patient: Ashley Winter EMR#: [id number] : 1970Acct:[id number] Age/Sex: 50 / FDate of Service: 07/02/20 Loc: ED Accession Number: [id number] Procedure: XR chest 1V Ordering Provider: Cody Bal MD PROCEDURE: XR CHEST 1V INDICATIONS: Dyspnea TECHNIQUE: One view of the chest was acquired. COMPARISON: [facility], , CHEST 2 VIEW, 10/21/2014, 5:55. FINDINGS: Suboptimal evaluation secondary to positioning factors. Surgical changes and devices: None. Lungs and pleura: Lungs are clear. No pleural effusions or pneumothorax. Mediastinum: Mediastinal contours appear normal. Heart size is normal. Bones and chest wall: No suspicious bony lesions. Overlying soft tissues appear unremarkable. IMPRESSION: No acute process. Dictated by: Steve Smyth M.D. on 07/02/2020 at 14:08 Approved by: Steve Smyth M.D. on 07/02/2020 at 14:09 CT scan - abdomen/pelvis: Radiologist's Impression: [address] [address] [address] Scan Report Signed Patient: Ashley Winter EMR#: [id number] : 1970Acct:[id number] Age/Sex: 50 / FDate of Service: 07/02/20 Loc: ED Accession Number: [id number] Procedure: CT abdomen pelvis wo con Ordering Provider: Cody Bal MD PROCEDURE: CT ABDOMEN PELVIS WO CON INDICATIONS: Nausea vomiting and diarrhea TECHNIQUE: Noncontrast 5 mm thick sections acquired from the diaphragms to the symphysis. 5 mm coronal and sagittal reformats were then performed. For radiation dose reduction, the following was used: automated exposure control, adjustment of mA and/or kV a ccording to patient size. COMPARISON: [facility], CT, CT ABDOMEN PELVIS W CON, 01/09/2020, 0:36. FINDINGS: Image quality: Excellent. ABDOMEN: Lung bases: Minimal bibasilar atelectasis. Lung bases are otherwise clear. Heart size is normal. Solid organs: Liver is normal in size. Diffuse hepatic steatosis. Gallbladder is unremarkable. . Pancreas is normal in contours. Spleen is normal in size. No adrenal nodules. Kidneys are normal in size, without hydronephrosis or nephrolithiasis. Peritoneum and bowel: Unenhanced bowel loops demonstrate diffuse, circumferential wall thickening and pericolonic stranding throughout the entire colon from the level of the cecum to the rectum. There are numerous prominent lymph nodes noted adjacent to the course of the colon as well as in the presacral space. These are likely reactive in etiology. Stable postsurgical changes at the proximal sigmoid colon from prior hemicolectomy. No free fluid or air. Nodes and vessels: No retroperitoneal or mesenteric adenopathy by size criteria. Aorta and inferior vena cava are normal in caliber. Miscellaneous: No ventral hernias. There is a fat-containing umbilical hernia without acute inflammation. PELVIS: Genitourinary: Bladder wall thickness is normal. Status post hysterectomy. Miscellaneous: No inguinal hernias or adenopathy. Bones: No suspicious bony lesions. No vertebral body compression fractures. IMPRESSION: 1. Thickening and pericolonic stranding of the entire visualized colon from the cecum to the rectum compatible with colitis. There are numerous, likely reactive lymph nodes paralleling the course of the colon as well as the presacral space. No focal mass lesion or asymmetric bowel wall thickening identified. Recommend further evaluation with routine follow-up colonoscopy after resolution of acute symptoms. 2. Diffuse hepatic steatosis with mild associated hepatomegaly. Dictated by: Chapo Valladares M.D. on 07/02/2020 at 15:02 Approved by: Chapo Valladares M.D. on 07/02/2020 at 15:15 [facility] Narrative Medical decision making narrative: Admitting patient for possible colonoscopy. Pancolitis worse on CT scan than previous CT scan. Possible C diff as patient has had recent antibiotics doxycycline to treat for pneumonia. Discharge Plan Departure Patient Disposition: Admitted As Inpatient Clinical Impression: Colitis Discharge Date/Time: 07/02/20 16:17 Admit Date/Time: 07/02/20 16:15 Admit Provider: Robyn Zavaleta
[2020-07-02] MEDS: SODIUM CHLORIDE 0.9% 1,000 ML 1000 ML IV (14:40)
--- NOTE | 2020-07-02 14:45 | DI.CT.S_ITS ---
PROCEDURE: CT ABDOMEN PELVIS WO CON INDICATIONS: Nausea vomiting and diarrhea TECHNIQUE: Noncontrast 5 mm thick sections acquired from the diaphragms to the symphysis. 5 mm coronal and sagittal reformats were then performed. For radiation dose reduction, the following was used: automated exposure control, adjustment of mA and/or kV according to patient size. COMPARISON: [facility], CT, CT ABDOMEN PELVIS W CON, 01/09/2020, 0:36. FINDINGS: Image quality: Excellent. ABDOMEN: Lung bases: Minimal bibasilar atelectasis. Lung bases are otherwise clear. Heart size is normal. Solid organs: Liver is normal in size. Diffuse hepatic steatosis. Gallbladder is unremarkable. . Pancreas is normal in contours. Spleen is normal in size. No adrenal nodules. Kidneys are normal in size, without hydronephrosis or nephrolithiasis. Peritoneum and bowel: Unenhanced bowel loops demonstrate diffuse, circumferential wall thickening and pericolonic stranding throughout the entire colon from the level of the cecum to the rectum. There are numerous prominent lymph nodes noted adjacent to the course of the colon as well as in the presacral space. These are likely reactive in etiology. Stable postsurgical changes at the proximal sigmoid colon from prior hemicolectomy. No free fluid or air. Nodes and vessels: No retroperitoneal or mesenteric adenopathy by size criteria. Aorta and inferior vena cava are normal in caliber. Miscellaneous: No ventral hernias. There is a fat-containing umbilical hernia without acute inflammation. PELVIS: Genitourinary: Bladder wall thickness is normal. Status post hysterectomy. Miscellaneous: No inguinal hernias or adenopathy. Bones: No suspicious bony lesions. No vertebral body compression fractures. IMPRESSION: 1. Thickening and pericolonic stranding of the entire visualized colon from the cecum to the rectum compatible with colitis. There are numerous, likely reactive lymph nodes paralleling the course of the colon as well as the presacral space. No focal mass lesion or asymmetric bowel wall thickening identified. Recommend further evaluation with routine follow-up colonoscopy after resolution of acute symptoms. 2. Diffuse hepatic steatosis with mild associated hepatomegaly. Dictated by: Chapo Valladares M.D. on 07/02/2020 at 15:02 Approved by: Chapo Valladares M.D. on 07/02/2020 at 15:15
[2020-07-02 14:46] LABS: INR 1.2 (0.9-1.3); Prothrombin Time 13.9 SECONDS (10.1-12.7)
[2020-07-02 14:47] LABS: Add Manual Diff / Slide Review NO; Basophils Absolute Auto 0 /uL (0-100); Basophils Percent Auto 0.3 % (0-2); Eosinophils Absolute Auto 300 /uL (0-450); Eosinophils Percent Auto 3.1 % (2-4); Hematocrit 32.8 % (36-46); Hemoglobin 10.8 g/dL (12.0-16.0); Lymphocytes Absolute Auto 1800 /uL (1100-4500); Lymphocytes Percent Auto 18.2 % (25-40); Mean Corpuscular Hemoglobin 25.8 PG (26-34); Mean Corpuscular Volume 78.3 fL (80-100); Monocytes Absolute Auto 800 /uL (0-900); Monocytes Percent Auto 8.2 % (3-14); Neutrophils Absolute Auto 7100 /uL (1500-7000); Neutrophils Percent Auto 70.2 % (50-75); Platelet Count 580 X10^3/uL (150-400); Red Blood Cell Count 4.19 X10^6/uL (4.0-5.2); Red Cell Distribution Width 15.6 % (11.6-14.8); White Blood Cell Count 10.1 X10^3/uL (4.5-11.0)
[2020-07-02 14:49] LABS: PTT Partial Thromboplastin Tim 24 SECONDS (26.4-36.2)
[2020-07-02 14:50] LABS: Creatine Kinase 26 U/L (30-135)
[2020-07-02 14:51] LABS: Alanine Aminotransferase 12 IU/L (<35); Albumin 2.8 g/dL (3.5-5.0); Albumin Globulin Ratio 0.8 (1.0-2.8); Alkaline Phosphatase 177 U/L (38-126); Aspartate Aminotransferase 35 IU/L (14-36); BUN Creatinine Ratio 11.2 (6-22); Bilirubin Total 0.7 mg/dL (0.2-1.3); Blood Urea Nitrogen 12 mg/dL (7-17); Calcium 8.8 mg/dL (8.4-10.2); Carbon Dioxide 34 mmol/L (22-32); Chloride 96 mmol/L (98-107); Estimated Glomerular Filt Rate 54.1 mL/min (>60); Globulin 3.5 g/dL (1.7-4.1); Glucose 95 mg/dL (70-100); HEMOLYSIS < 15 (0-50); Lipase 24 U/L (23-300); Potassium 3.1 mmol/L (3.4-5.1); Sodium 135 mmol/L (137-145); Total Protein 6.3 g/dL (6.3-8.2)
[2020-07-02 15:03] LABS: Troponin I < 0.012 ng/mL (0.01-0.034)
[2020-07-02] MEDS: ONDANSETRON 4 MG/2 ML INJ IV (17:04)
[2020-07-02] MEDS: metroNIDAZOLE 500 MG/100 ML PIGGYBACK 100 MG IV ×2 (17:10→23:37)
[2020-07-02] MEDS: POTASSIUM CHLORIDE 20 MEQ TAB 40 MEQ PO (17:10)
[2020-07-02 17:12] LABS: COVID19 -Nasal RAPID Negative (Negative)
[2020-07-02 17:16] LABS: Magnesium 2.6 mg/dL (1.6-2.3)
[2020-07-02 17:44] LABS: Procalcitonin 0.24 ng/mL (<0.5)
[2020-07-02] MEDS: VANCOMYCIN 1,000 MG/200 ML PIGGYBACK 200 MG IV (18:25)
[2020-07-02 18:35] LABS: Clostridium Difficile Tox PCR Negative for C. diff
[2020-07-02] MEDS: LACTATED RINGERS 1,000 ML 100 ML IV (21:55)
[2020-07-02] MEDS: KETOROLAC 15 MG/ML VIAL IV (22:00)
[2020-07-02] MEDS: PANTOPRAZOLE 40 MG VIAL IV (22:03)
--- NOTE | 2020-07-02 22:34 | PC.NURSE ---
ADMISSION Report received from ED. Care assumed at 1917. Pt. is A&Ox3. VSS. C/o rectal pain d/t hemorrhoids, as well as some abdominal pain/cramping. Frequent bloody diarrhea.
[2020-07-02 22:43] LABS: Adenovirus F 40/41 Not Detected (Not Detect); Astrovirus Not Detected (Not Detect); Campylobacter Not Detected (Not Detect); Clostridium difficile toxin AB Not Detected (Not Detect); Cryptosporidium Not Detected (Not Detect); Cyclospora cayetanensis Not Detected (Not Detect); Entamoeba histolytica Not Detected (Not Detect); Enteroaggregative E.coli Not Detected (Not Detect); Enteropathogenic E.coli Not Detected (Not Detect); Enterotoxigenic E.coli It/st Not Detected (Not Detect); Giardia lamblia Not Detected (Not Detect); Norovirus GI/GII Not Detected (Not Detect); Plesiomonsa shigelloides Not Detected (Not Detect); Rotavirus A Not Detected (Not Detect); Salmonella Not Detected (Not Detect); Sapovirus Not Detected (Not Detect); Shiga-like toxin-prod E.coli Not Detected (Not Detect); Shigella/Enteroinvasive E.coli Not Detected (Not Detect); Vibrio Not Detected (Not Detect); Vibrio cholerae Not Detected (Not Detect); Yersinia enterocolitica Not Detected (Not Detect)
[2020-07-02] MEDS: MELATONIN 3 MG TABLET 6 MG PO (23:36)
[2020-07-02 23:44] LABS: Appearance Urine UA CLEAR; Bilirubin Urine UA NEGATIVE (NEGATIVE); Color Urine UA YELLOW; Glucose Urine UA NEGATIVE (Negative); Ketones Urine UA TRACE (NEGATIVE); Leukocyte Esterase Urine UA TRACE (NEGATIVE); Nitrite Urine UA NEGATIVE (Negative); Occult Blood Urine UA 1+ (Negative); Protein Urine UA TRACE (Negative); Urobilinogen Urine UA 0.2 E.U./dL (0.2)
[2020-07-02] MEDS: ACETAMINOPHEN 325 MG TABLET 650 MG PO (23:50)
[2020-07-02 23:53] LABS: Bacteria Urine Few (2-10); Culture Indicated Urine Specimen Cultured; RBC Urine 0-1/HPF (0-5/HPF); Squamous Epithelial Cell Urine 1-5 /HPF (0-5/HPF); WBC Urine 5-10/HPF (0-5/HPF)
[2020-07-03] MEDS: POTASSIUM CHLORIDE 20 MEQ in SODIUM CHLORIDE 0.9% 250 ML 130 ML IV (00:58)
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
[2020-07-03] MEDS: KETOROLAC 15 MG/ML VIAL IV ×3 (04:18→16:19)
[2020-07-03 06:00] VITALS: BP 120/68; PULSE 77; RESP 16; TEMP 36.3; O2SAT 94
[2020-07-03] MEDS: metroNIDAZOLE 500 MG/100 ML PIGGYBACK 100 MG IV (06:01)
[2020-07-03] MEDS: ONDANSETRON 4 MG/2 ML INJ IV ×4 (06:04→22:18)
[2020-07-03 06:42] LABS: Add Manual Diff / Slide Review NO; Basophils Absolute Auto 0 /uL (0-100); Basophils Percent Auto 0.2 % (0-2); Eosinophils Absolute Auto 600 /uL (0-450); Eosinophils Percent Auto 6.5 % (2-4); Hematocrit 30.6 % (36-46); Hemoglobin 9.9 g/dL (12.0-16.0); Lymphocytes Absolute Auto 1600 /uL (1100-4500); Lymphocytes Percent Auto 17.4 % (25-40); Mean Corpuscular HGB Conc 32.3 % (30-36); Mean Corpuscular Hemoglobin 25.6 PG (26-34); Mean Corpuscular Volume 79.4 fL (80-100); Monocytes Absolute Auto 900 /uL (0-900); Monocytes Percent Auto 9.5 % (3-14); Neutrophils Absolute Auto 6200 /uL (1500-7000); Neutrophils Percent Auto 66.4 % (50-75); Platelet Count 482 X10^3/uL (150-400); Red Blood Cell Count 3.85 X10^6/uL (4.0-5.2); Red Cell Distribution Width 15.9 % (11.6-14.8); White Blood Cell Count 9.3 X10^3/uL (4.5-11.0)
[2020-07-03 06:49] LABS: BUN Creatinine Ratio 11.5 (6-22); Blood Urea Nitrogen 13 mg/dL (7-17); Calcium 8.4 mg/dL (8.4-10.2); Carbon Dioxide 25 mmol/L (22-32); Chloride 103 mmol/L (98-107); Estimated Glomerular Filt Rate 50.8 mL/min (>60); Glucose 91 mg/dL (70-100); HEMOLYSIS < 15 (0-50); Magnesium 2.4 mg/dL (1.6-2.3); Potassium 3.7 mmol/L (3.4-5.1); Sodium 135 mmol/L (137-145)
[2020-07-03 07:05] LABS: Procalcitonin 0.24 ng/mL (<0.5)
[2020-07-03] MEDS: GABAPENTIN 600 MG TABLET PO ×2 (09:21→14:44)
[2020-07-03] MEDS: ACETAMINOPHEN 325 MG TABLET 650 MG PO ×4 (09:21→20:50)
[2020-07-03] MEDS: NYSTATIN SUSP 500,000 UNIT/5 ML UDC 500000 UNIT PO ×2 (09:21→20:51)
[2020-07-03] MEDS: CYCLOBENZAPRINE 5 MG TABLET PO (09:22)
[2020-07-03] MEDS: PANTOPRAZOLE 40 MG VIAL IV (09:23)
[2020-07-03 09:58] VITALS: BP 123/70; PULSE 73; RESP 16; TEMP 35.9; O2SAT 96
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
--- NOTE | 2020-07-03 10:51 | PT.IIE ---
Current Diagnoses Ulcerative (chronic) pancolitis without complications (07/02/20) Surgical History (Last Reviewed 07/03/20 @ 10:06 by Sami Carranza MD) History of colonoscopy (Acute) History of ear surgery (Acute) History of foot surgery (Acute) History of hysterectomy (Acute) History of partial colectomy (Acute) Medical History (Last Reviewed 07/03/20 @ 10:06 by Sami Carranza MD) Degenerative disc disease at L5-S1 level (Inactive) Diverticulitis (Acute) Hemorrhoids (Acute) History of otosclerosis (Acute) Lumbosacral spondylosis with radiculopathy (Inactive) Morbid obesity with BMI of 40.0-44.9, adult (Acute) Physical Therapy Inpatient Evaluation/Re-Eval M1 PT/OT-IP Prior Functional Status Start: 07/03/20 14:02 Freq: NEEDED Status: Active Protocol: Document 07/03/20 10:51 AB (Rec: 07/03/20 14:13 AB [id number]) Medical Review Prior Functional Status Medical History Reviewed Yes Communication able to make needs known Mobility and Gait pt stated that she is independent with all mobilities and ambulation wihtout AD but occasionally uses a hurrycane when she feels she is weak; stated that she has chronic back pain and the doctor cannot do anything about it Social History Household Members spouse Living Arrangements House Number of Floors (Floors) Two Floors Number of Stairs To Enter/Railing? 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 PT-IP Current Condition Start: 07/03/20 14:02 Freq: NEEDED Status: Active Protocol: Document 07/03/20 10:51 AB (Rec: 07/03/20 14:13 AB [id number]) Physical Therapy Current Condition Current Condition Evaluation Date 07/03/20 Treatment Diagnosis PNA; difficulty in walking Onset Date 07/02/20 M3 PT-IP Subjective Start: 07/03/20 14:02 Freq: NEEDED Status: Active Protocol: Document 07/03/20 10:51 AB (Rec: 07/03/20 14:13 AB [id number]) Subjective Physical Therapy Visit Type Type Initial Evaluation Visit Start Time 10:51 Visit Stop Time 11:03 Total Visit Minutes 12 Number of [employer] 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 Visits 0 Physical Therapy Visit Comments Patient Comments c/o hemorrhoidal pain Therapy Pain Assessment Pain When Pain Assessed At Rest Location Back Scale Used pain scale not stated but c/o back pain and stated that it is chronic Description Chronic rectum Intensity 10 Scale Used increases with mobility Pain Management Techniques Distraction,Modification of Treatment M4 PT-IP Mobility and Gait Start: 07/03/20 14:02 Freq: NEEDED Status: Active Protocol: Document 07/03/20 10:51 AB (Rec: 07/03/20 14:13 AB [id number]) PT-Bed Mobility Assessment Supine to Sit Supine to Sit Standby Assistance,Bedrails PT-Transfer Assessment Sit to and From Stand Sit to and from Stand Standby Assistance,1 Person Assistance,Use of Upper Extremities Equipment Transfer Assistive Device None Orthotic/Prosthetic Devices or Brace: No Transfers Transfer Destination Toilet Transfer Technique ambulated Transfer Ability Level of Assist Standby Assistance,1 Person Assistance Comments Mobility Comments pt requires motivation to participate. c/o pain due to her hemorrhoids and needs rest breaks in between movements. completed supine to sit using bed rail and HOB elevated SBA . completed sit to stand SBA. ambulated in room ~ 40 ft SBA and requested to use the toilet. Spouse in room and stated that she will assist pt . instructed to use call button for assistance. informed [facility] that pt is using the toilet. Gait Assessment Gait Gait Assistance Required: Standby Assistance Distance (Feet) 40 Able to Maintain Weight Bearing Status Yes During Gait Assistive Devices Assistive Device Gait Belt Gait Deviations General Gait Pattern Antalgic Factors Limiting Gait Function Factors Limiting Gait Function Decreased Activity Tolerance, Decreased Strength,Limited Range of Motion,Pain,Poor Balance,Poor Safety Awareness PT-Balance Assessment Sitting Balance and Reactions Static Sitting Balance Ability Good Dynamic Sitting Balance Ability Good Standing Balance and Reactions Static Standing Balance Ability Good Dynamic Standing Balance Ability Good Device Used without AD M5 PT-IP Objective Assessments Start: 07/03/20 14:02 Freq: NEEDED Status: Active Protocol: Document 07/03/20 10:51 AB (Rec: 07/03/20 14:13 [id number]) Orientation Orientation/Cognition Level of Alertness Alert Orientation Name,Age,Birthday,Month,Date, Year,Day of Week,Place, Situation Language Function Ability No Deficits Noted Safety Awareness Understands Safety Issues Memory Description No Deficits Noted Gross Range of Motion Lower Extremity ROM Assessment Within Functional Limits Strength Lower Extremity Strength Assessment Within Functional Limits Coordination Assessment Gross Coordination Gross Coordination WNL Muscle Tone Muscle Tone WNL Yes M6 PT-IP Treatment Start: 07/03/20 14:02 Freq: NEEDED Status: Active Protocol: Document 07/03/20 10:51 AB (Rec: 07/03/20 14:13 AB [id number]) Physical Therapy Treatment Education Education Provided Safety M7 PT-IP Assessment and Plan Start: 07/03/20 14:02 Freq: NEEDED Status: Active Protocol: Document 07/03/20 10:51 AB (Rec: 07/03/20 14:13 AB [id number]) PT Summary Assessment and Plan Potential Rehabilitation Potential Good Status of Condition at Evaluation Stable Summary Impairments Pain,ROM,Strength,Balance,Bed Mobility,Transfers,Gait, Activity Tolerance Assessment Summary pt requiring SBA with mobility without AD and pain is the main limiting factor affecting mobility. pt unable to tolerate much cue to c/o pain. pt plans to go home and spouse will be able to assist pt at home. Goals Bed Mobility Goal Independent Transfer Goal Independent Gait Goal Independent Gait Distance 100 Other Goals up/down 14 steps 1 rail SBA Days to Meet Goals 5 Frequency of Treatment Frequency Of Treatment Once a Day Treatment Plan Physical Therapy Treatment Plan Bed Mobility Training,Transfer Training,Gait Training, Therapeutic Exercise,Balance Retraining,Discharge Planning, Hot or Cold Pack,Neuromuscular Re-ed Other Recommendations and Next Treatment ambulation, stair climbing Focus Recommendations To Nursing Amount of Assist Needed Standby Assistance Discharge Recommendations PT Discharge Recommendations Home with Assistance Transportation Needs at Discharge Private Vehicle
--- NOTE | 2020-07-03 11:57 | CM.DANOTE ---
DCP: Case received, EMR reviewed. Checked on patient. She was having pain, and attempting to rest. Introduced self and role by the door. DCP assessment was completed based on information currently available. Patient is a 50 year old female who admitted yesterday afternoon to the care of the hospitalist team. PCP: Dr. Oconnell at [facility] in [place]. Payer: confirmed: [facility]. Patient came to the hospital via private vehicle secondary to having abdominal discomfort, loose stools with blood. Patient had been recently treated for pneumonia at [facility] and given Doxcycline. Patient is sensitive to most antibiotics, and thinks that this was the cause of her abdominal discomfort. This also occurs with pain medications per patient. She holds current diagnosis of Pancolitis. 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 She is independent at baseline, and resides with her spouse, Keanu. She goes to [facility] for medical care. P: DCP to continue to follow for any needs. Will attempt to check in again later today if time allows. Hamida Whitmore RN/Human Resources Project Manager
[2020-07-03] MEDS: LACTATED RINGERS 1,000 ML 100 ML IV (12:20)
[2020-07-03 12:35] VITALS: BP 113/54; PULSE 72; RESP 16; TEMP 36.4; O2SAT 95
--- NOTE | 2020-07-03 13:38 | PC.NURSE ---
PT APPEARS ILL, SHE IS PALE AND APPEARS UNCOMFORTABLE- EACH MOVEMENT IS PAINFUL TO HER- HER ABD IS CRAMPY AND PAINFUL WITH HER HEMORRHOIDS- USING PREP H WITH EACH VOID- STOOL SENT FOR CULTURE AND O&P: RESULTS PENDING- ABLE TO TAKE PO ALTHOUGH VERY SMALL AMOUNTS AND IS MOSTLY STICKING WITH LIQUIDS- REQUESTS ZOFRAN PRIOR TO PO RX- AWAITING SURGICAL CONSULT
--- NOTE | 2020-07-03 14:59 | OT.IPNOTE ---
Pt and agreed that pt does not need or want OT eval at this time and will be able to assist pt for all needs. Therefore discharge Ot eval orders.
--- NOTE | 2020-07-03 14:59 | OT.IPNOTE ---
Went to see pt for OT eval and able to talk to pt and and both agreed that pt does need or want to have OT eval and that her will be able to assist her at home as needed. Able to give pt information of energy conservation strategies. NO charge.
[2020-07-03 15:50] VITALS: BP 112/59; PULSE 82; RESP 18; TEMP 36.9; O2SAT 97
--- NOTE | 2020-07-03 16:11 | PM.PN.1 ---
Subjective Subjective Date Patient Seen: 07/03/20 Interval history: Ashley Stephens is a 50-year-old female with a past medical history significant for severe diverticulosis status post partial colectomy, chronic lumbar spine pain with radiculopathy followed at [facility], hemorrhoids and morbid obesity who presented to the ED with nausea, vomiting and bloody diarrhea for 2 weeks. The patient is resting in the bed appears moderately uncomfortable. She is unable to move without significant pain of her hemorrhoids. She has tenesmus due to hemorrhoids and reports that her diarrhea is decreasing in frequency but persistent. Plan to allow patient to advance diet as tolerated. Discussed pain control including low-dose IV Dilaudid and or tramadol and pre dosing patient with antiemetic to prevent nausea and vomiting. The patient is considering this approach. She has no other complaints and denies headache, chest pain, shortness of breath, abdominal pain, nausea, vomiting, fever, chills, dysuria, or constipation. She is voiding and eliminating without difficulty. Plan to continue to implement topical medications such as preparation H and/or lidocaine jelly to hemorrhoids. Exam Vital Signs (past 8 hours): - 07/03/20 09:58 07/03/20 12:35 07/03/20 15:50 Temperature 96.7 F L 97.6 F 98.4 F Pulse Rate 73 72 82 Respiratory Rate 16 16 18 Blood Pressure 123/70 113/54 L 112/59 L Pulse Oximetry 96 95 97 Oxygen Delivery Method Room Air Oxygen Flow Rate 0 Narrative Exam Narrative: General: Older female lying in bed and appears significantly uncomfortable, morbidly obese, appropriately interactive HEENT: Normocephalic, atraumatic. External ears without defect. Pupils equal, round, and reactive to light.Anicteric sclerae, moist conjunctivae, and no lid lag. Oropharynx free of erythema and cobble stoning with moist mucosa. Oral exudates resolving. Neck: Supple with full range of motion. No jugular venous distension. No bruits. No lymphadenopathy or thyromegaly. Cardiovascular: Regular rate and rhythm without murmurs, rubs, or gallops appreciated. Pulmonary: Clear to auscultation bilaterally without crackles, wheezes, or rhonchi. Normal respiratory effort with no use of accessory muscles. Abdomen: Soft, obese, bowel tones present. nontender, nondistended. No hepatosplenomegaly or masses appreciated. Genitourinary: Multiple hemorrhoids several thrombosed and erythematous. Extremities: No clubbing, cyanosis, or edema. Lymphedema. Skin: Normal temperature, turgor, and texture; no rash, ulcers, or subcutaneous nodules appreciated. Neurological: Cranial nerves grossly intact. Psychiatric: Normal mood and affect. Alert and oriented to person, place, and time. Objective Labs Result Diagrams: 07/05/20 05:05 07/05/20 05:05 Labs: Laboratory Results - last 24 hr 07/02/20 07/02/20 07/02/20 14:30 14:30 15:50 WBC RBC Hgb Hct MCV MCH MCHC RDW Plt Count Neut % (Auto) Lymph % (Auto) [place] % (Auto) Eos % (Auto) Baso % (Auto) Neut # (Auto) Lymph # (Auto) [place] # (Auto) Eos # (Auto) Baso # (Auto) Sodium Potassium Chloride Carbon Dioxide BUN Creatinine Estimated GFR BUN/Creatinine Ratio Glucose Calcium Magnesium 2.6 H Procalcitonin 0.24 Urine Color Urine Appearance Urine pH Ur Specific [place] Urine Protein Urine Glucose (UA) Urine Ketones Urine Occult Blood Urine Nitrate Urine Bilirubin Urine Urobilinogen Ur Leukocyte Esterase Urine RBC Urine WBC Ur Squamous Epith Cells Urine Bacteria Ur Culture Indicated? Stl C. cayetanensis PCR Stool Rotavirus (PCR) Stool Adenovirus (PCR) Stool Astrovirus (PCR) Stool Cryptosporidium PCR Stl E.coli Shiga Tox PCR St Sh/Enteroin Ecoli PCR Stool E coli O157 PCR Stl Enterotoxigenic E PCR Stool EPEC (PCR) Stl E. histolytica PCR Stool Giardia Lamblia PCR Stool Sapovirus (PCR) Stl P. shigelloides PCR St Y.enterocolitica PCR Stool Vibrio (PCR) Stl Vibrio cholerae PCR Stl Enteroaggr Ecoli PCR Stl Norovirus GI/GII PCR Campylobacter (PCR) C. difficile Tox (PCR) COVID-19 PCR Negative Salmonella (PCR) 07/02/20 07/02/20 07/02/20 16:50 16:50 22:30 WBC RBC Hgb Hct MCV MCH MCHC RDW Plt Count Neut % (Auto) Lymph % (Auto) [place] % (Auto) Eos % (Auto) Baso % (Auto) Neut # (Auto) Lymph # (Auto) [place] # (Auto) Eos # (Auto) Baso # (Auto) Sodium Potassium Chloride Carbon Dioxide BUN Creatinine Estimated GFR BUN/Creatinine Ratio Glucose Calcium Magnesium Procalcitonin Urine Color Yellow Urine Appearance Clear Urine pH 5.0 Ur Specific [place] 1.010 Urine Protein Trace H Urine Glucose (UA) Negative Urine Ketones Trace H Urine Occult Blood 1+ H Urine Nitrate Negative Urine Bilirubin Negative Urine Urobilinogen 0.2 Ur Leukocyte Esterase Trace H Urine RBC 0-1/hpf Urine WBC 5-10/hpf H Ur Squamous Epith Cells 1-5 /hpf Urine Bacteria Few (2-10) H Ur Culture Indicated? Specimen cultured Stl C. cayetanensis PCR Not detected Stool Rotavirus (PCR) Not detected Stool Adenovirus (PCR) Not detected Stool Astrovirus (PCR) Not detected Stool Cryptosporidium PCR Not detected Stl E.coli Shiga Tox PCR Not detected St Sh/Enteroin Ecoli PCR Not detected Stool E coli O157 PCR Not Reportable Stl Enterotoxigenic E PCR Not detected Stool EPEC (PCR) Not detected Stl E. histolytica PCR Not detected Stool Giardia Lamblia PCR Not detected Stool Sapovirus (PCR) Not detected Stl P. shigelloides PCR Not detected St Y.enterocolitica PCR Not detected Stool Vibrio (PCR) Not detected Stl Vibrio cholerae PCR Not detected Stl Enteroaggr Ecoli PCR Not detected Stl Norovirus GI/GII PCR Not detected Campylobacter (PCR) Not detected C. difficile Tox (PCR) Negative for c. diff Not detected COVID-19 PCR Salmonella (PCR) Not detected 07/03/20 07/03/20 07/03/20 06:15 06:15 06:15 WBC 9.3 RBC 3.85 L Hgb 9.9 L Hct 30.6 L MCV 79.4 L MCH 25.6 L MCHC 32.3 RDW 15.9 H Plt Count 482 H Neut % (Auto) 66.4 Lymph % (Auto) 17.4 L [place] % (Auto) 9.5 Eos % (Auto) 6.5 H Baso % (Auto) 0.2 Neut # (Auto) 6200 Lymph # (Auto) 1600 [place] # (Auto) 900 Eos # (Auto) 600 H Baso # (Auto) 0 Sodium 135 L Potassium 3.7 Chloride 103 Carbon Dioxide 25 BUN 13 Creatinine 1.13 H Estimated GFR 50.8 L BUN/Creatinine Ratio 11.5 Glucose 91 Calcium 8.4 Magnesium 2.4 H Procalcitonin 0.24 Urine Color Urine Appearance Urine pH Ur Specific [place] Urine Protein Urine Glucose (UA) Urine Ketones Urine Occult Blood Urine Nitrate Urine Bilirubin Urine Urobilinogen Ur Leukocyte Esterase Urine RBC Urine WBC Ur Squamous Epith Cells Urine Bacteria Ur Culture Indicated? Stl C. cayetanensis PCR Stool Rotavirus (PCR) Stool Adenovirus (PCR) Stool Astrovirus (PCR) Stool Cryptosporidium PCR Stl E.coli Shiga Tox PCR St Sh/Enteroin Ecoli PCR Stool E coli O157 PCR Stl Enterotoxigenic E PCR Stool EPEC (PCR) Stl E. histolytica PCR Stool Giardia Lamblia PCR Stool Sapovirus (PCR) Stl P. shigelloides PCR St Y.enterocolitica PCR Stool Vibrio (PCR) Stl Vibrio cholerae PCR Stl Enteroaggr Ecoli PCR Stl Norovirus GI/GII PCR Campylobacter (PCR) C. difficile Tox (PCR) COVID-19 PCR Salmonella (PCR) Assessment & Plan Assessment & Plan narrative: Ashley Stephens is a 50-year-old female with a past medical history significant for severe diverticulosis status post partial colectomy, chronic lumbar spine pain with radiculopathy followed at [facility], hemorrhoids and morbid obesity who presented to the ED with nausea, vomiting and bloody diarrhea for 2 weeks. 1. Acute pancolitis, present on admission. Active. -Patient with bloody diarrhea and bleeding likely due to prolapsed hemorrhoids. Patient with similar episode in December of 2019 following treatment with antibiotics with subsequent bloody diarrhea. Patient recently placed on doxycycline empirically for pneumonia and has been completed. -Differential diagnosis includes: microscopic colitis versus inflammatory. Ruled out infectious colitis other than ova and parasite pending. Blood cultures have no growth to date. -CT demonstrated pancolitis with thickening and stranding from the cecum to the rectum with numerous reactive lymph nodes. -Initial WBC 10.1 with no shift and procalcitonin is 0.24. Hemoglobin is 10.8 with hematocrit of 32.8. Prior hemoglobin on 01/10/2020 was 11.7. -Received metronidazole 500 mg every 6 hours and vancomycin 1000 mg IV in the ED for possible C. difficile which were discontinued as GI stool PCR negative. -Discontinued Lactated Ringer's 100 cc/hour as patient appears adequately hydrated. -Consulted general surgery, Dr. Carranza, for evaluation of pancolitis and hemorrhoids. We appreciate his time and recommendations. -Continue to monitor CBC and procalcitonin daily. 2. Hemorrhoids with severe rectal pain, acute on chronic, present on admission. Active. -Patient with severe pain of external hemorrhoids due to irritation from diarrhea. Concern for prolapsed hemorrhoids with attempted reduction by ED physician with reported partial success but severe distress per patient. -Continue glycerin application preparation H with phenylepipherine (as the patient is allergic to procaine making many hemorrhoidal medications contraindicated), and lidocaine jelly to symptomatically treat hemorrhoidal irritation. -Due to nausea and vomiting ordered Toradol 15 mg IV every 6 hours as needed for pain. Also discussed trial of low dose hydromorphone 0.25 mg IV every 6 hours or tramadol 50 mg four times daily as needed for pain as patient has severe GI reaction to most pain medications. -Consulted general surgery, Dr. Carranza, for evaluation of pancolitis and hemorrhoids. We appreciate his time and recommendations. -ordered preparation H with phenylephrine and glycerin as the patient is allergic to procaine making many hemorrhoidal medications unavailable. -Dr. Carranza general surgery has been consulted, we appreciate his further evaluation and recommendations. 3. Acute hypokalemia, present on admission. Resolved. -Secondary to GI lossses. -Initial potassium level 3.1 on admission. Received 40 IV mEq and 20 mEq IV. Potassium level now 3.7. -Continue to monitor potassium level and replete as necessary. 4. Asymptomatic bacteriuria, present on admission. Stable. -Patient presently without symptoms, no dysuria, urgency, frequency or hesitancy. -Urinalysis appears equivocal with urine culture pending but likely asymptomatic bacturia. 5. Acute thrush, secondary to antibiotics, present on admission. Resolving. -Patient had oral and lingual pain with right buccal stomatitis and thrush on the tongue on admission. -Continue nystatin swish and spit 2 times daily until resolved. 6. Chronic low back pain, chronic, present on admission, Stable -Patient has degenerative disc disease at L5-S1 with history of radiculopathy. -Patient's pain has been control meloxicam. Due to nausea and vomiting ordered Toradol 15 mg IV every 6 hours as needed for pain. -Continue Gabapentin 600 mg 3 times daily. -Continue physical therapy evaluation and treatment. 7. Generalized weakness, present on admission. Active. -Patient with longstanding low back pain with morbid obesity, deconditioning, diarrhea with bleeding and worsening anemia, dehydration, and severely painful hemorrhoids. -Continue physical therapy evaluation and treatment. Occupational therapy assessed patient and found no needs. Code status: Full code, patient designates her as surrogate decision maker. VTE prophylaxis: Bilateral SCDs, chemical prophylaxis deferred related to bloody diarrhea and pending general surgery evaluation. Disposition: Patient remains hospitalized pending improvement in diarrhea and control of hemorrhoid pain.
[2020-07-03] MEDS: HYDROMORPHONE 0.5 MG INJ 0.25 MG IV ×2 (18:12→22:55)
[2020-07-03 20:00] VITALS: BP 112/87; PULSE 85; RESP 17; TEMP 36.7; O2SAT 99
[2020-07-03] MEDS: MELATONIN 3 MG TABLET 6 MG PO (20:51)
[2020-07-03] MEDS: GABAPENTIN 300 MG CAPSULE 900 MG PO (20:51)
[2020-07-03] MEDS: PB8 PROBIOTIC 1 EACH PO (20:52)
[2020-07-04] VITALS: BP 114/60; PULSE 84; RESP 16; TEMP 36.3; O2SAT 94
[2020-07-04] MEDS: ACETAMINOPHEN 325 MG TABLET 650 MG PO ×2 (00:04→05:19)
[2020-07-04] MEDS: LACTATED RINGERS 1,000 ML 100 ML IV ×2 (00:04→09:38)
[2020-07-04 05:18] LABS: Add Manual Diff / Slide Review NO; Basophils Absolute Auto 0 /uL (0-100); Basophils Percent Auto 0.5 % (0-2); Eosinophils Absolute Auto 600 /uL (0-450); Eosinophils Percent Auto 5.5 % (2-4); Hemoglobin 9.6 g/dL (12.0-16.0); Lymphocytes Absolute Auto 1100 /uL (1100-4500); Lymphocytes Percent Auto 9.8 % (25-40); Mean Corpuscular Hemoglobin 26.3 PG (26-34); Mean Corpuscular Volume 79.7 fL (80-100); Monocytes Absolute Auto 900 /uL (0-900); Monocytes Percent Auto 8.2 % (3-14); Neutrophils Absolute Auto 8100 /uL (1500-7000); Platelet Count 459 X10^3/uL (150-400); Red Blood Cell Count 3.64 X10^6/uL (4.0-5.2); Red Cell Distribution Width 15.8 % (11.6-14.8); White Blood Cell Count 10.7 X10^3/uL (4.5-11.0)
[2020-07-04 05:26] LABS: Alanine Aminotransferase 10 IU/L (<35); Albumin 2.2 g/dL (3.5-5.0); Albumin Globulin Ratio 0.8 (1.0-2.8); Alkaline Phosphatase 125 U/L (38-126); Aspartate Aminotransferase 30 IU/L (14-36); Bilirubin Total 0.6 mg/dL (0.2-1.3); Blood Urea Nitrogen 13 mg/dL (7-17); Calcium 8.1 mg/dL (8.4-10.2); Carbon Dioxide 27 mmol/L (22-32); Chloride 103 mmol/L (98-107); Estimated Glomerular Filt Rate 58.5 mL/min (>60); Globulin 2.8 g/dL (1.7-4.1); Glucose 101 mg/dL (70-100); HEMOLYSIS < 15 (0-50); Magnesium 2.1 mg/dL (1.6-2.3); Potassium 3.7 mmol/L (3.4-5.1); Sodium 134 mmol/L (137-145)
[2020-07-04 05:40] VITALS: BP 105/56; PULSE 75; RESP 16; TEMP 36.2; O2SAT 97
[2020-07-04 05:45] LABS: Procalcitonin 11.77 ng/mL (<0.5)
[2020-07-04 08:32] VITALS: BP 103/67; PULSE 81; RESP 18; TEMP 36.1; O2SAT 96
[2020-07-04] MEDS: PB8 PROBIOTIC 1 EACH PO ×2 (08:35→18:08)
[2020-07-04] MEDS: GABAPENTIN 600 MG TABLET PO (08:35)
[2020-07-04] MEDS: NYSTATIN SUSP 500,000 UNIT/5 ML UDC 500000 UNIT PO ×2 (08:36→21:12)
[2020-07-04] MEDS: KETOROLAC 15 MG/ML VIAL IV ×3 (08:37→22:00)
[2020-07-04] MEDS: PANTOPRAZOLE 40 MG VIAL IV (08:38)
--- NOTE | 2020-07-04 10:35 | DIET.PN ---
Dietary Progress Note Assessment: 50y F admitted for pancolitis following abx therapy referred to nutrition for low POs. Pt has severe prolapsed hemorrhoids, severe diverticulosis s/p bowel resection in 2009, and has had issues c Colitis since December 2019. Pt has fear of eating as the food comes right out, fecal material is liquid and not identifiable pieces of food. Pt was taking All-Bran Cereal or fortified oatmeal to increase fiber intake since 2009 but has not been eating fiber rich foods since December likely aggravating hemorrhoid condition. Pt is eager to see GI specialist as they feel this may be autoimmune related. Pts daughter has similar sx. Pt can tolerate eggs and bananas, but difficulty c other foods. Today pt is tolerating Clear Ensure and jello. HT: 172.7cm WT: 130.5kg BMI:43.7 Nutrition Diagnosis: inadequate protein energy intake r/t fear of colitis sx aeb pt limiting diet to eggs and bananas during flare, pts POs meeting <50% EER Interventions: 1. Discussed use of Squatty Potty to reduce effort c defecation. 2. Recc focusing fiber intake on soluble fiber to regulate BMs after colitis clears. Educated pt on difference bw soluble and insoluble fiber and support use of oats, beans, lawson dips, Premier Protein c oats ONS 3. Recc ONS Ensure Clear tid until pt feels safe advancing to general diet Diet Order: General (pt tolerating clears) EER: 1950kcal (15kcal/kg per obese), 104g PRO (0.8g/kg adult) Monitoring/Evaluations: POs, ONS tolerance
[2020-07-04] MEDS: ONDANSETRON 4 MG/2 ML INJ IV ×2 (12:06→18:06)
[2020-07-04] MEDS: HYDROMORPHONE 0.5 MG INJ 0.25 MG IV ×2 (12:06→18:38)
[2020-07-04 12:13] VITALS: BP 112/64; PULSE 82; RESP 16; TEMP 36; O2SAT 97
--- NOTE | 2020-07-04 12:20 | PT.IPTN ---
Current Diagnoses Ulcerative (chronic) pancolitis without complications (07/02/20) Physical Therapy Treatment Note M2 PT-IP Current Condition Start: 07/03/20 14:02 Freq: NEEDED Status: Active Protocol: Document 07/03/20 10:51 AB (Rec: 07/03/20 14:13 AB [id number]) Physical Therapy Current Condition Current Condition Evaluation Date 07/03/20 Treatment Diagnosis PNA; difficulty in walking Onset Date 07/02/20 M3 PT-IP Subjective Start: 07/03/20 14:02 Freq: NEEDED Status: Active Protocol: Document 07/04/20 12:08 HH (Rec: 07/04/20 12:20 HH [id number]) Subjective Physical Therapy Visit Type Type Treatment Note Visit Start Time 10:21 Visit Stop Time 10:40 Total Visit Minutes 19 Notes pt's spouse at bedside Number of LOOM STOP CHECKER Visits 0 Physical Therapy Visit Comments Patient Comments c/o hemorrhoidal pain and requested to use bathroom Therapy Pain Assessment Pain When Pain Assessed At Rest Location Back Scale Used pain scale not stated but c/o back pain and stated that it is chronic Description Chronic M4 PT-IP Mobility and Gait Start: 07/03/20 14:02 Freq: NEEDED Status: Active Protocol: Document 07/04/20 12:08 HH (Rec: 07/04/20 12:20 HH [id number]) PT-Bed Mobility Assessment Supine to Sit Supine to Sit Standby Assistance,Bedrails PT-Transfer Assessment Sit to and From Stand Sit to and from Stand Standby Assistance,1 Person Assistance,Use of Upper Extremities Equipment Transfer Assistive Device None Orthotic/Prosthetic Devices or Brace: No Transfers Transfer Destination Toilet Transfer Technique ambulated Transfer Ability Level of Assist Standby Assistance,1 Person Assistance Comments Mobility Comments Pt in bed upon PT arrival. Spouse at bedside. pt cont requires motivation to participate PT. She agreed to mobilize with PT but requested to use bathroom first. Pt was able to got up with bed flattened. Spouse then assist pt with IV pole. She amb to bathroom and transferred herself I to toilet. Pt was there for approx 11 mins. She was able to complete pericare after as well. Pt then amb with PT to hallway for approx 250 ft without AD but presented with an antalgic gait d/t hemorrhoidal pain. She was slightly aggitated towards the end d/t pain and requested to return to bed witohut assistance. Call light placed witihn reach. Gait Assessment Gait Gait Assistance Required: Standby Assistance Distance (Feet) 250 Able to Maintain Weight Bearing Status Yes During Gait Assistive Devices Assistive Device Gait Belt Gait Deviations General Gait Pattern Antalgic Factors Limiting Gait Function Factors Limiting Gait Function Decreased Activity Tolerance, Decreased Strength,Limited Range of Motion,Pain,Poor Balance,Poor Safety Awareness PT-Balance Assessment Sitting Balance and Reactions Static Sitting Balance Ability Good Dynamic Sitting Balance Ability Good Standing Balance and Reactions Static Standing Balance Ability Good Dynamic Standing Balance Ability Good Device Used without AD M5 PT-IP Objective Assessments Start: 07/03/20 14:02 Freq: NEEDED Status: Active Protocol: Document 07/03/20 10:51 AB (Rec: 07/03/20 14:13 AB [id number]) Orientation Orientation/Cognition Level of Alertness Alert Orientation Name,Age,Birthday,Month,Date, Year,Day of Week,Place, Situation Language Function Ability No Deficits Noted Safety Awareness Understands Safety Issues Memory Description No Deficits Noted Gross Range of Motion Lower Extremity ROM Assessment Within Functional Limits Strength Lower Extremity Strength Assessment Within Functional Limits Coordination Assessment Gross Coordination Gross Coordination WNL Muscle Tone Muscle Tone WNL Yes M6 PT-IP Treatment Start: 07/03/20 14:02 Freq: NEEDED Status: Active Protocol: Document 07/03/20 10:51 AB (Rec: 07/03/20 14:13 AB [id number]) Physical Therapy Treatment Education Education Provided Safety M7 PT-IP Assessment and Plan Start: 07/03/20 14:02 Freq: NEEDED Status: Active Protocol: Document 07/04/20 12:08 (Rec: 07/04/20 12:20 [id number]) PT Summary Assessment and Plan Potential Rehabilitation Potential Good Status of Condition at Evaluation Stable Summary Impairments Pain,ROM,Strength,Balance,Bed Mobility,Transfers,Gait, Activity Tolerance Assessment Summary pt requiring SBA with mobility without AD and pain is still the main limiting factor affecting mobility. pt increased her amb distance but became somewhat agitated at the end d/t pain. pt plans to go home and spouse will be able to assist pt at home. Goals Bed Mobility Goal Independent Transfer Goal Independent Gait Goal Independent Gait Distance 100 Other Goals up/down 14 steps 1 rail SBA Days to Meet Goals 5 Frequency of Treatment Frequency Of Treatment Once a Day Treatment Plan Physical Therapy Treatment Plan Bed Mobility Training,Transfer Training,Gait Training, Therapeutic Exercise,Balance Retraining,Discharge Planning, Hot or Cold Pack,Neuromuscular Re-ed Other Recommendations and Next Treatment ambulation, stair climbing Focus Recommendations To Nursing Amount of Assist Needed Standby Assistance Discharge Recommendations PT Discharge Recommendations Home with Assistance Transportation Needs at Discharge Private Vehicle
--- NOTE | 2020-07-04 14:35 | P.PN_ITS ---
Subjective Subjective Date Patient Seen: 07/04/20 Time Patient Seen: 14:35 Interval history: This is a 50 year old female admitted for a dirrheal illness and pancolitis found on CT imaging. The patient is resting in the bed appears moderately uncomfortable. She continues to report diarrhea every hour or so while awake. She is fearful to eat as whenever she does she has frequent stools but is willing to keep trying. She was able to eat some chicken and mashed pot atoes yesterday and toelrated it with help of pain medications. Patient was able to tolerate opiate pain medications overnight. Exam Vital Signs (past 8 hours): - 07/04/20 08:32 07/04/20 12:13 Temperature 97.0 F L 96.8 F L Pulse Rate 81 82 Respiratory Rate 18 16 Blood Pressure 103/67 112/64 Pulse Oximetry 96 97 Oxygen Delivery Method Room Air Oxygen Flow Rate 0 Narrative Exam Narrative: General: Older female lying in bed and appears significantly uncomfortable, morbidly obese, appropriately interactive HEENT: Normocephalic, atraumatic. External ears without defect. Pupils equal, round, and reactive to light.Anicteric sclerae, moist conjunctivae, and no lid lag. Oropharynx free of erythema and cobble stoning with moist mucosa. Neck: Supple with full range of motion. No jugular venous distension. No bruits. No lymphadenopathy or thyromegaly. Cardiovascular: Regular rate and rhythm without murmurs, rubs, or gallops appreciated. Pulmonary: Clear to auscultation bilaterally without crackles, wheezes, or rhonchi. Normal respiratory effort with no use of accessory muscles. Abdomen: Soft, obese, bowel tones present. nontender, nondistended. No hepatosplenomegaly or masses appreciated. Genitourinary: Multiple hemorrhoids several thrombosed and erythematous. Extremities: No clubbing, cyanosis, or edema. Lymphedema. Skin: Normal temperature, turgor, and texture; no rash, ulcers, or subcutaneous nodules appreciated. Neurological: Cranial nerves grossly intact. Psychiatric: Normal mood and affect. Alert and oriented to person, place, and time. Objective Labs Result Diagrams: 07/04/20 04:45 07/04/20 04:45 Labs: Laboratory Results - last 24 hr 07/04/20 07/04/20 07/04/20 04:45 04:45 04:45 WBC 10.7 RBC 3.64 L Hgb 9.6 L Hct 29.0 L MCV 79.7 L MCH 26.3 MCHC 33.0 RDW 15.8 H Plt Count 459 H Neut % (Auto) 76.0 H Lymph % (Auto) 9.8 L Granite % (Auto) 8.2 Eos % (Auto) 5.5 H Baso % (Auto) 0.5 Neut # (Auto) 8100 H Lymph # (Auto) 1100 Granite # (Auto) 900 Eos # (Auto) 600 H Baso # (Auto) 0 Sodium 134 L Potassium 3.7 Chloride 103 Carbon Dioxide 27 BUN 13 Creatinine 1.00 Estimated GFR 58.5 L BUN/Creatinine Ratio 13.0 Glucose 101 H Calcium 8.1 L Magnesium 2.1 Total Bilirubin 0.6 AST 30 ALT 10 Alkaline Phosphatase 125 D Total Protein 5.0 L Albumin 2.2 L Globulin 2.8 Albumin/Globulin Ratio 0.8 L Procalcitonin 11.77 H Assessment & Plan Assessment & Plan narrative: 1. Pancolitis, present on admission, active. -bloody diarrhea with hemorrhoids. -CT scan finds pancolitis with thickening and stranding from the cecum to the rectum with numerous reactive lymph nodes. -white count is 10.1 with no shift, procalcitonin is 0.24. Hemoglobin is 10.8 with hematocrit of 32.8. Prior hemoglobin on 01/10/2020 was 11.7. -the patient had similar episode December of 2019 following treatment with antibiotics with subsequent bloody diarrhea. -Doxycycline has been discontinued, -patient has had adverse reactions to multiple antibiotics including ciprofloxacin. Started on metronidazole but given negative stool panel and no improvement in symptoms will discontinue today. Patient received vancomycin 1000 mg IV in the ER for possible C diffi cile, stool PCR panel has come back completely negative with no C diff, vancomycin is discontinued as well. -patient has a history of diverticulosis has had a previous partial colectomy. Dr. Carranza, general surgery has been contacted through the emergency department agreed to consult. Appreciate recommendations. -possibility of inflammatory / non-infectious etiology. Will attempt trial of steroids to see if there is improvement. Consider microscopic colitis or inflammatory disease. If no improvement consider GI consultation. No endoscopy recommended from surgery at this time given significant inflammation. 2. Prolapsed hemorrhoids, present on admission, active. -painful hemorrhoids with attempted reduction a prolapsed hemorrhoids by the ER physician with reported partial success. -patient is used glycerin application to decrease rectal in hemorrhoidal irritation. -ordered preparation H with phenylephrine and glycerin as the patient is allergic to procaine making many hemorrhoidal medications unavailable. -Dr. Carranza general surgery has been consulted, we appreciate his further ev aluation and recommendations. 3. Acute hypokalemia, present on admission. Resolved. -Secondary to GI lossses. -Initial potassium level 3.1 on admission. Received 40 IVmEq and 20 mEq IV. Potassium level now 3.7. -Continue to monitor potassium level and replete as necessary. 4. Asymptomatic bacteriuria, present on admission. Stable. -patient presently without symptoms of UTI, no urgency frequency or burning. -urinalysis ordered and finds trace protein, trace ketones, 1+ blood, trace leukocyte esterase, wbc's 5-10 and few bacteria, reflex to culture. -the patient remains asymptomatic and has significant adverse reactions to antibiotics. -urine culture with 10K-20K colonies of staph species. Will hold off on antibiotics. 5. Oral thrush, present on admission. Resolving. -Patient had oral and lingual pain with right buccal stomatitis and thrush on the tongue on admission. -Continue nystatin swish and spit 2 times daily until resolved. 6. Chronic low back pain, chronic, present on admission, Stable -Patient has degenerative disc disease at L5-S1 with history of radiculopathy -patient's pain has been control meloxicam, the patient has been nauseous and vomiting ordered Toradol 15 mg IV every 6 hours as needed for pain. -Continue gabapentin 600 mg 3 times daily. -Continue physical therapy evaluation and treatment. 7. Generalized weakness, present on admission, active -Patient with longstanding low back pain with morbid obesity, deconditioning, diarrhea with bleeding and worsening anemia, dehydration, and severely painful hemorrhoids. -Continue physical therapy evaluation and treatment. Occupational therapy assessed patient with no needs. Code status: Full code, patient designates her as surrogate decision maker. VTE prophylaxis: Bilateral SCDs, chemical prophylaxis deferred related to bloody diarrhea and pending general surgery evaluation. Disposition: Patient remains hospitalized pending improvement in diarrhea and control of hemorrhoid pain.
--- NOTE | 2020-07-04 14:55 | PC.NURSE ---
Addendum entered by Kristi Atkins R.N. 07/05/20 14:38: Patient just taken down for her flex sig. Given pain medication before she left. IV metranidozole given, and steroid that was d/cd shortly after. She tolerated fleets enema but did have some pain. Patient has external hemorrhoids that were not bleeding but purple in color. waiting in patient room until she gets back. Original Note: Patient started on iv steroids, which has been given. She was able to keep some jello and turkey down for lunch. Given toradol this am and helpful, patient continually complains of burning in her abdomen. Given zofran and also .25mg of iv dilaudid which seemed more effective for pain control. She is up with her to use the bathroom, she has had 2 small bowel movements, that looked blood free. Drinking plenty of water an visiting with her now.
[2020-07-04 15:27] VITALS: BP 110/58; PULSE 90; RESP 20; TEMP 36.1; O2SAT 96
[2020-07-04 19:39] VITALS: BP 110/64; PULSE 79; RESP 18; TEMP 36.1; O2SAT 95
[2020-07-04] MEDS: MELATONIN 3 MG TABLET 6 MG PO (21:12)
[2020-07-04] MEDS: GABAPENTIN 300 MG CAPSULE 900 MG PO (21:12)
[2020-07-05] VITALS (16 sets, daily range): BP systolic 123–158; BP diastolic 70–91; PULSE 65–94; RESP 10–19; TEMP 35.6–36.6; O2SAT 90–100
--- NOTE | 2020-07-05 | PATH_ITS ---
[facility] Accession Number: [id number] . 01 Material submitted: . rectosigmoid junction - RECTOSIGMOID BIOPSIES . 01 Clinical history: . PNEUMONIA, MEDS NOT HELPING, FEELS WORSE . 02 Diagnosis: Rectosigmoid Colon, Biopsies: Severely active colitis with ulcerations and mild distortion of the crypt architecture. Please see comment. Negative for granulomas, dysplasia and malignancy. MRV 07/09/2020 1315 Local . 02 Comment: The rectosigmoid colon biopsies shows ulceration, neutrophilic cryptitis with a few crypt abscesses and occasional crypt rupture. No obvious viral cytopathic effects or parasitic organisms are identified. There are features of chronic inflammation including diffusely increased lymphocytes and plasma cells in the lamina propria, cyrpt hyperplasia and mildly villiform architecture. No significant crypt branching is identified and the majority of the crypts extend to the muscularis mucosae. The differential diagnosis includes infection, medication-related mucosal injury, diverticular disease-associated colitis/trauma/prolapse, and idiopathic inflammatory bowel disease. . 02 Electronically signed: . Fransisca Guzman MD, Pathologist NPI- [id number] . 01 Gross description: . RECTOSIGMOID BIOPSIES: Received in formalin are multiple fragment(s) of sanford, soft tissue measuring 0.1 x 0.1 x 0.1 cm to 0.3 x 0.2 x 0.2 cm submitted entirely in 1 cassette(s) /JUAN ALBERTO 07/07/20202020 Local . 02 Microscopic: . A CMV immunohistochemical stain was performed to evaluate for CMV antigen, and is negative. The control stain showed appropriate reactivity. . 02 Pathologist provided ICD-10: K52.9 . 02 CPT . 147708, [id number] Performed at: 01 [facility] [address] [address] [address], [place], [place] [id number] MD Reji Jeffries MD Phone: [phone] Performed at: [facility] [address] [place] [id number] MD Fransisca Guzman MD Phone: [phone]
[2020-07-05] MEDS: ONDANSETRON 4 MG/2 ML INJ IV ×4 (00:20→21:25)
[2020-07-05] MEDS: HYDROMORPHONE 0.5 MG INJ 0.25 MG IV ×4 (00:36→21:32)
[2020-07-05 05:31] LABS: Add Manual Diff / Slide Review NO; Basophils Absolute Auto 0 /uL (0-100); Basophils Percent Auto 0.1 % (0-2); Eosinophils Absolute Auto 0 /uL (0-450); Eosinophils Percent Auto 0.1 % (2-4); Hemoglobin 9.7 g/dL (12.0-16.0); Lymphocytes Absolute Auto 600 /uL (1100-4500); Mean Corpuscular HGB Conc 32.3 % (30-36); Mean Corpuscular Hemoglobin 25.8 PG (26-34); Mean Corpuscular Volume 79.9 fL (80-100); Monocytes Absolute Auto 200 /uL (0-900); Monocytes Percent Auto 3.1 % (3-14); Neutrophils Absolute Auto 6200 /uL (1500-7000); Neutrophils Percent Auto 87.7 % (50-75); Platelet Count 504 X10^3/uL (150-400); Red Blood Cell Count 3.75 X10^6/uL (4.0-5.2); Red Cell Distribution Width 16.2 % (11.6-14.8); White Blood Cell Count 7.1 X10^3/uL (4.5-11.0)
[2020-07-05 05:37] LABS: Alanine Aminotransferase 10 IU/L (<35); Albumin 2.2 g/dL (3.5-5.0); Albumin Globulin Ratio 0.7 (1.0-2.8); Alkaline Phosphatase 148 U/L (38-126); Aspartate Aminotransferase 33 IU/L (14-36); BUN Creatinine Ratio 13.5 (6-22); Bilirubin Total 0.4 mg/dL (0.2-1.3); Bilirubin Unconjugated 0.2 mg/dL (0.0-1.1); Blood Urea Nitrogen 12 mg/dL (7-17); Calcium 8.5 mg/dL (8.4-10.2); Carbon Dioxide 29 mmol/L (22-32); Chloride 102 mmol/L (98-107); Estimated Glomerular Filt Rate > 60.0 mL/min (>60); Glucose 132 mg/dL (70-100); HEMOLYSIS < 15 (0-50); Magnesium 2.2 mg/dL (1.6-2.3); Potassium 4.4 mmol/L (3.4-5.1); Sodium 135 mmol/L (137-145); Total Protein 5.2 g/dL (6.3-8.2)
[2020-07-05] MEDS: LACTATED RINGERS 1,000 ML 100 ML IV ×2 (05:46→17:03)
[2020-07-05] MEDS: KETOROLAC 15 MG/ML VIAL IV (05:46)
[2020-07-05 05:48] LABS: Procalcitonin 24.58 ng/mL (<0.5)
--- NOTE | 2020-07-05 07:36 | DI.US.S_ITS ---
PROCEDURE: US ABDOMEN LIMITED INDICATIONS: EPIGASTRIC, BILIARY EVALUATION TECHNIQUE: Real-time focused scanning was performed of the abdomen, with image documentation. COMPARISON: [facility], CT, CT ABDOMEN PELVIS W CON, 01/09/2020, 0:36. [facility], CT, CT ABDOMEN PELVIS WO CON, 07/02/2020, 14:35. FINDINGS: The liver demonstrates prominent size. The liver demonstrates generalized increased echogenicity. This decreases ultrasound sensitivity for detection of hepatic masses. No findings of gallstones or sludge are seen. The gallbladder wall is not thickened, measuring 3 mm or less. No specific pericholecystic fluid is seen. The sonographic Milton sign is negative. There is no biliary dilatation, the common bile duct measures 5 mm. The visualized pancreas is unremarkable. IMPRESSION: The gallbladder demonstrates a normal sonographic appearance. No biliary dilatation is seen. Enlarged, fatty liver. Dictated by: Allan Crooks M.D. on 07/05/2020 at 7:55 Approved by: Allan Crooks M.D. on 07/05/2020 at 7:56
[2020-07-05] MEDS: GABAPENTIN 600 MG TABLET PO (09:07)
[2020-07-05] MEDS: PB8 PROBIOTIC 1 EACH PO (09:07)
[2020-07-05] MEDS: TRAMADOL 50 MG TABLET PO (09:07)
[2020-07-05] MEDS: diazePAM 2 MG TABLET PO (09:26)
--- NOTE | 2020-07-05 10:18 | DI.CT.S_ITS ---
PROCEDURE: CT ABDOMEN PELVIS W CON INDICATIONS: continued diarrhea, worsening pain. TECHNIQUE: After the administration of oral and intravenous contrast, 5 mm thick sections acquired from the diaphragms to the symphysis. 5 mm thick coronal and sagittal reformats were performed. For radiation dose reduction, the following was used: automated exposure control, adjustment of mA and/or kV according to patient size. COMPARISON: [facility], CT, ABDOMEN/PELVIS WITH CONTRAST, 08/03/2010, 23:03. [facility], CT, CT ABDOMEN PELVIS WO CON, 07/02/2020, 14:35. [facility], US, US ABDOMEN LIMITED, 07/05/2020, 8:31. [facility], CT, CT ABDOMEN PELVIS W CON, 01/09/2020, 0:36. FINDINGS: Image quality: Excellent. ABDOMEN: Lung bases: Lung bases are clear. Heart size is normal. Solid organs: An enlarged, fatty infiltrated liver can be seen. Gallbladder is partially decompressed at the time of this study. Biliary system is non-dilated. There is moderate to prominent fluid seen surrounding the pancreas. The pancreas enhances normally, without necrotic areas. The pancreatic duct is not dilated. No focal peripancreatic loculated fluid collections are seen. Spleen is normal in size. Within the spleen, low-density foci are seen that measure up to 1.4 cm, which are not seen on the 01/09/2020 examination, even in retrospect. No adrenal nodules. Kidneys are normal in size and enhancement, without hydronephrosis. Peritoneum and bowel: Generalized mild wall thickening can be seen of the colon. Stomach and small bowel are normal in caliber and wall thickness. No free fluid or air. Minimal distal colonic diverticulosis is seen, without findings of active diverticulitis. Nodes and vessels: No retroperitoneal or mesenteric adenopathy. Aorta and inferior vena cava are normal in caliber. Miscellaneous: No ventral hernias. PELVIS: Genitourinary: Bladder wall thickness is normal. This patient is status post hysterectomy. No adnexal masses are seen. Miscellaneous: No inguinal hernias or adenopathy. Bones: No suspicious bony lesions. No vertebral body compression fractures. S-shaped scoliotic curvature is seen. Focal L5-S1 degenerative change is seen. Milder degenerative changes are seen elsewhere. IMPRESSION: These imaging findings are highly concerning for pancreatitis. There is moderate to prominent free fluid surrounding the pancreas, which cannot be seen on the recent prior study dated 07/02/2020, even in retrospect. Please correlate with physical examination findings, patient presentation, and laboratory values. No findings of pancreatic pseudocyst or necrosis are detected. Abnormal spleen, with several poorly enhancing foci, which cannot be seen on the CT dated 01/09/2020, even in retrospect. Differential diagnosis includes infection/abscess. Generalized mild wall thickening can be seen in the colon, which is attributed to diffuse colitis. The degree of thickening is mildly improved compared to the prior CT. Please correlate with potential infectious and inflammatory changes. Incidental note is made of: Enlarged, fatty liver Hysterectomy Diverticulosis, without active diverticulitis S shaped scoliosis Focal L5-S1 degenerative change Dictated by: Allan Crooks M.D. on 07/05/2020 at 11:39 Approved by: Allan Crooks M.D. on 07/05/2020 at 11:45
--- NOTE | 2020-07-05 10:35 | PC.NURSE ---
Addendum entered by Kristi Atkins R.N. 07/05/20 12:22: Patient now has a double lumen pic line to her l.upper extremity, given iv benadryl and tolerated well. She is allergic to iodine and has had this ct with contrast in the past, she states that she needs to be medicated with benadryl, which was just given.. She was just taken down to ct scan. Original Note: Patient anxious and in pain, she states that she has pain across her abdomen and its more prominent on the r.side. Given zofran and iv dilaudid and patient still anxious and states that her abdomen is burning. ordered valium 2mg and this has been given about an hour ago and patient is crying over on the couch and her is rubbing her back. She is now to drink some iv contrast for procedure in about an hour. BT are hypoactive x4, patient has had some liquid stool, with a tinge of blood. Mostly brown and liquid in color. She is resting now. to order a fleets enema and then possibly do a partial scope on patient.
[2020-07-05 11:55] LABS: Adenovirus F 40/41 Not Detected (Not Detect); Astrovirus Not Detected (Not Detect); Campylobacter Not Detected (Not Detect); Clostridium difficile toxin AB Not Detected (Not Detect); Cryptosporidium Not Detected (Not Detect); Cyclospora cayetanensis Not Detected (Not Detect); Entamoeba histolytica Not Detected (Not Detect); Enteroaggregative E.coli Not Detected (Not Detect); Enteropathogenic E.coli Not Detected (Not Detect); Enterotoxigenic E.coli It/st Not Detected (Not Detect); Giardia lamblia Not Detected (Not Detect); Norovirus GI/GII Not Detected (Not Detect); Plesiomonsa shigelloides Not Detected (Not Detect); Rotavirus A Not Detected (Not Detect); Salmonella Not Detected (Not Detect); Sapovirus Not Detected (Not Detect); Shiga-like toxin-prod E.coli Not Detected (Not Detect); Shigella/Enteroinvasive E.coli Not Detected (Not Detect); Vibrio Not Detected (Not Detect); Vibrio cholerae Not Detected (Not Detect); Yersinia enterocolitica Not Detected (Not Detect)
--- NOTE | 2020-07-05 11:58 | PM.PN.1 ---
Subjective Subjective Date Patient Seen: 07/05/20 Time Patient Seen: 11:58 Interval history: This is a 50 year old female admitted for a dirrheal illness and pancolitis found on CT imaging. The patient still appeared uncomfortable and she stated this morning her pain is now a band-like sensation in her upper abdomen. She continues to report diarrhea every hour or so while awake and was not able to tolerate much PO intake. Pain medications were becoming increasingly uneffective. Procalcitonin also continues to rise but no leukocytosis or fevers. Ordered limited abdominal ultrasound which did not show any biliary pathology. Ordered repeat stool testing which was again negative. Urine culture with minimal staph epidermidis likely contaminant. Ordered repeat abdominal CT with contrast for further evaluation given worsening condition and re-discussed with general surgery regarding possible colonic biopsies for a more definitive diagnosis. Patient made NPO this AM. CT ultimately returned showing new pancreatitis, splenic lesions that were in retrospect seen on prior CT as well, but improving colitits. Exam Vital Signs (past 8 hours): - 07/05/20 04:01 07/05/20 07:10 Temperature 96.6 F L 96.1 F L Pulse Rate 87 92 H Respiratory Rate 19 18 Blood Pressure 128/70 123/86 Pulse Oximetry 96 94 Oxygen Delivery Method Room Air Oxygen Flow Rate 0 Narrative Exam Narrative: General: Older female lying in bed and appears uncomfortable, morbidly obese, appropriately interactive HEENT: Normocephalic, atraumatic. External ears without defect. Pupils equal, round, and reactive to light. Anicteric sclerae, moist conjunctivae, and no lid lag. Oropharynx free of erythema and cobble stoning with moist mucosa. Neck: Supple with full range of motion. No jugular venous distension. No bruits. No lymphadenopathy or thyromegaly. Cardiovascular: Regular rate and rhythm without murmurs, rubs, or gallops appreciated. Pulmonary: Clear to auscultation bilaterally without crackles, wheezes, or rhonchi. Normal respiratory effort with no use of accessory muscles. Abdomen: Soft, obese, bowel tones present. non-distended, tender throughout but more prominent in RUQ and epigastrium. No hepatosplenomegaly or masses appreciated but limited due to obesity. Extremities: No clubbing, cyanosis, or edema. Lymphedema. Skin: Normal temperature, turgor, and texture; no rash, ulcers, or subcutaneous nodules appreciated. Neurological: Cranial nerves grossly intact. No focal deficits. Psychiatric: mildly anxious. Alert and oriented to person, place, and time. Objective Labs Result Diagrams: 07/05/20 05:05 07/05/20 05:05 Labs: Laboratory Results - last 24 hr 07/05/20 07/05/20 07/05/20 05:05 05:05 05:05 WBC 7.1 RBC 3.75 L Hgb 9.7 L Hct 30.0 L MCV 79.9 L MCH 25.8 L MCHC 32.3 RDW 16.2 H Plt Count 504 H Neut % (Auto) 87.7 H Lymph % (Auto) 9.0 L Hud[place]eth % (Auto) 3.1 Eos % (Auto) 0.1 L Baso % (Auto) 0.1 Neut # (Auto) 6200 Lymph # (Auto) 600 L Hud[place]eth # (Auto) 200 Eos # (Auto) 0 Baso # (Auto) 0 Sodium 135 L Potassium 4.4 Chloride 102 Carbon Dioxide 29 BUN 12 Creatinine 0.89 Estimated GFR > 60.0 BUN/Creatinine Ratio 13.5 Glucose 132 H Calcium 8.5 Magnesium 2.2 Total Bilirubin 0.4 Conjugated Bilirubin 0.0 Unconjugated Bilirubin 0.2 AST 33 ALT 10 Alkaline Phosphatase 148 H Total Protein 5.2 L Albumin 2.2 L Globulin 3.0 Albumin/Globulin Ratio 0.7 L Procalcitonin 24.58 H Stl C. cayetanensis PCR Stool Rotavirus (PCR) Stool Adenovirus (PCR) Stool Astrovirus (PCR) Stool Cryptosporidium PCR Stl E.coli Shiga Tox PCR St Sh/Enteroin Ecoli PCR Stool E coli O157 PCR Stl Enterotoxigenic E PCR Stool EPEC (PCR) Stl E. histolytica PCR Stool Giardia Lamblia PCR Stool Sapovirus (PCR) Stl P. shigelloides PCR St Y.enterocolitica PCR Stool Vibrio (PCR) Stl Vibrio cholerae PCR Stl Enteroaggr Ecoli PCR Stl Norovirus GI/GII PCR Campylobacter (PCR) C. difficile Tox (PCR) Salmonella (PCR) 07/05/20 10:00 WBC RBC Hgb Hct MCV MCH MCHC RDW Plt Count Neut % (Auto) Lymph % (Auto) Hudspeth % (Auto) Eos % (Auto) Baso % (Auto) Neut # (Auto) Lymph # (Auto) Hudspeth # (Auto) Eos # (Auto) Baso # (Auto) Sodium Potassium Chloride Carbon Dioxide BUN Creatinine Estimated GFR BUN/Creatinine Ratio Glucose Calcium Magnesium Total Bilirubin Conjugated Bilirubin Unconjugated Bilirubin AST ALT Alkaline Phosphatase Total Protein Albumin Globulin Albumin/Globulin Ratio Procalcitonin Stl C. cayetanensis PCR Not detected Stool Rotavirus (PCR) Not detected Stool Adenovirus (PCR) Not detected Stool Astrovirus (PCR) Not detected Stool Cryptosporidium PCR Not detected Stl E.coli Shiga Tox PCR Not detected St Sh/Enteroin Ecoli PCR Not detected Stool E coli O157 PCR Not detected Stl Enterotoxigenic E PCR Not detected Stool EPEC (PCR) Not detected Stl E. histolytica PCR Not detected Stool Giardia Lamblia PCR Not detected Stool Sapovirus (PCR) Not detected Stl P. shigelloides PCR Not detected St Y.enterocolitica PCR Not detected Stool Vibrio (PCR) Not detected Stl Vibrio cholerae PCR Not detected Stl Enteroaggr Ecoli PCR Not detected Stl Norovirus GI/GII PCR Not detected Campylobacter (PCR) Not detected C. difficile Tox (PCR) Not detected Salmonella (PCR) Not detected Assessment & Plan Assessment & Plan narrative: 1. Pancolitis, present on admission, active. -bloody diarrhea with known hemorrhoids, so unclear if this is a hemorrhagic colitis or not. Diarrhea is slowly improving, unclear if this improvement is due to steroids or flagyl. -CT scan finds pancolitis with thickening and stranding from the cecum to the rectum with numerous reactive lymph nodes. -white count 10.1 with no shift, procalcitonin negative on admission but has now jumped to >20 without leukocytosis. Slightly more anemia due to blood loss from diarrhea / hemorrhoids. -the patient had similar episode December of 2019 following treatment with antibiotics with subsequent bloody diarrhea. -Doxycycline has been discontinued, -patient has had adverse reactions to multiple antibiotics including ciprofloxacin. Started on metronidazole but given negative stool panel and no improvement in symptoms started on steroids for possible inflammatory / autoimmune disease. Patient received vancomycin 1000 mg IV in the ER for possible C difficile, stool PCR panel has come back completely negative with no C diff, vancomycin is discontinued as well. Given rising pro-calcitonin repeat GI panel was sent and was again negative but in this clinical scenario today will continue flagyl. -patient has a history of diverticulosis has had a previous partial colectomy. Dr. Carranza, general surgery was initially consulted but thought more infectious etiology. Re-consulted today with Dr. Torre and have ordered another CT with contrast for further evaluation which is noted below. Made NPO. Surgery proceeding with flexible sigmoidoscopy and colonic biopsies this afternoon. Appreciate significant surgical assistance today. -Repeat CT imaging showing multiple splenic lesions, improved colitis, and new pancreatitis. Differential includes inflammatory bowel disease, autoimmune and infectious etiologies. Follow up biopsies. Continue steroids and will restart prior flagyl. Have ordered IgG with subclasses panel for further evaluation. 2. Prolapsed hemorrhoids, present on admission, active. -painful hemorrhoids with attempted reduction a prolapsed hemorrhoids by the ER physician with reported partial success. -patient is used glycerin application to decrease rectal in hemorrhoidal irritation. -ordered preparation H with phenylephrine and glycerin as the patient is allergic to procaine making many hemorrhoidal medications unavailable. -Dr. Carranza general surgery has been consulted, we appreciate his further evaluation and recommendations. 3. Pancreatitis, acute present on admission. - further imaging ordered this morning included a limited abdominal ultrasound which did not reveal any biliary pathology. -after CT imaging have ordered a lipase, as well as triglyceride level for further evaluation. -follow-up IgG subclasses as previously ordered. -will continue NPO with IV fluids today, and restart a diet as soon as possible. 4. Multiple splenic lesions, acute, present on admission -as noted above, Repeat CT imaging showing multiple splenic lesions, improved colitis, and new pancreatitis. Differential includes inflammatory bowel disease, autoimmune and infectious etiologies. Follow up biopsies. Continue steroids and will restart prior flagyl. Have ordered IgG panel for further evaluation. 3. Acute hypokalemia, present on admission. Resolved. -Secondary to GI lossses. -Initial potassium level 3.1 on admission. Received 40 IVmEq and 20 mEq IV. Potassium level now 3.7. -Continue to monitor potassium level and replete as necessary. 4. Asymptomatic bacteriuria, present on admission. Stable. -patient presently without symptoms of UTI, no urgency frequency or burning. -urinalysis ordered and finds trace protein, trace ketones, 1+ blood, trace leukocyte esterase, wbc's 5-10 and few bacteria, reflex to culture. -the patient remains asymptomatic and has significant adverse reactions to antibiotics. -urine culture with 10K-20K colonies of staph epidermidis. Will hold off on antibiotics. 5. Oral thrush, present on admission. Resolving. -Patient had oral and lingual pain with right buccal stomatitis and thrush on the tongue on admission. -Continue nystatin swish and spit 2 times daily until resolved. 6. Chronic low back pain, chronic, present on admission, Stable -Patient has degenerative disc disease at L5-S1 with history of radiculopathy -patient's pain has been control meloxicam, the patient has been nauseous and vomiting ordered Toradol 15 mg IV every 6 hours as needed for pain. -Continue gabapentin 600 mg 3 times daily. -Continue physical therapy evaluation and treatment. 7. Generalized weakness, present on admission, active -Patient with longstanding low back pain with morbid obesity, deconditioning, diarrhea with bleeding and worsening anemia, dehydration, and severely painful hemorrhoids. -Continue physical therapy evaluation and treatment. Occupational therapy assessed patient with no needs. Code status: Full code, patient designates her as surrogate decision maker. VTE prophylaxis: Bilateral SCDs, chemical prophylaxis deferred related to bloody diarrhea and pending general surgery evaluation. Disposition: Patient remains hospitalized for colitis, pancreatitis of undetermined etiology. Anticipate discharge home once symptoms are improved and will require outpatient specialty evaluation depending on above workup.
[2020-07-05] MEDS: diphenhydrAMINE 50 MG/ML VIAL 25 MG IV (12:09)
--- NOTE | 2020-07-05 14:00 | PT-IP ANOTE ---
Checked on pt this AM and pt refused. Attempted to see pt in PM at 14:00 and she was crying in pain and stated she does not want to participate in therapy today.
[2020-07-05] MEDS: PANTOPRAZOLE 40 MG VIAL IV (14:10)
[2020-07-05] MEDS: NYSTATIN SUSP 500,000 UNIT/5 ML UDC 500000 UNIT PO ×2 (14:10→21:31)
[2020-07-05] MEDS: FLEETS ENEMA 1 EACH PR (14:11)
[2020-07-05] MEDS: metroNIDAZOLE 500 MG/100 ML PIGGYBACK 100 MG IV ×2 (14:25→21:29)
--- NOTE | 2020-07-05 14:44 | CM.DPC ---
DCP: continued: Spoke with Dr. Pal during Team Bedside Rounds. He noted that pt was worsening and that he did not think a team meeting with pt would be helpful at this time. He noted he was revising POC and needed a diagnosis as etiology of pt's symptoms was not clear at this time. He stated he planned to consult with Dr. Torre in followup to Dr. Carranza's consult and at that time Dr. Torre entered the unit and joined the conversation. Will be checking in tomorrow and be following for d/c needs as these unfold.
--- NOTE | 2020-07-05 14:46 | PM.PREOP ---
Pre-operative Note COVID-19 COVID-19 status: Negative Result date/Date tested (Pos, Neg/Pending): 07/02/20 Interval Note History & Physical reviewed/Exam performed by Physician: Yes Changes to H&P: Yes H&P completed within 30 days and has changed as indicated here:: Lungs are clear to auscultation. No murmurs or gallops regular rate and rhythm. Abdomen is protuberant soft. Patient has external hemorrhoids. No unusual inflammation seen there. CT scan performed today suggest colitis with pancreatitis and possible splenic lesions. I am not sure some of the appearance of the colon isn't due to a lack of distention. Discussed with Dr. Antonio. Will proceed with a flexible sigmoidoscopy to biopsy or colon. I have discussed the procedure including risks of bleeding perforation. She appears to understand and wants to proceed. ASA Class (for procedural sedation): III
[2020-07-05 14:47] LABS: Triglycerides 156 mg/dL (35-150)
[2020-07-05 15:03] LABS: Lipase 6580 U/L (23-300)
--- NOTE | 2020-07-05 15:12 | PM.OP.ENDO ---
Operative Date/Time/Diagnoses Date of procedure: 07/05/20 Time of procedure: 15:12 Pre-op diagnosis: Colitis cause unclear Post-op diagnosis: same (Severe colitis from the rectum proximally) Procedure & Clinicians Study performed: Flexible sigmoidoscopy with cold biopsy Same procedure as scheduled: Yes Indications: Diagnostic determine cause of colitis Surgeon: Jero Torre Procedure Notes SCOAP/Timeout: Performed Procedure in detail: The patient is placed in left lateral decubitus position underwent IV sedation directed by the surgeon consisting of fentanyl and Versed. Digital exam was quite tender. There is some narrowing of the anal verge. The colonoscope was inserted and advanced to a level ultimately of about 25 cm. There was marked inflammation of the rectosigmoid wall from the anal verge proximal. Irrigating off the particulate matter revealed white plaques covering a significant portion of the surface of the mucosa. Biopsies were taken randomly of the area and the scope was removed. Scope withdrawal time: Not applicable Sedation minutes: 7 Findings: colitis Specimen(s): other (Rectosigmoid biopsies) Complications: none Post-procedure Plan for aftercare: Will continue to follow while hospitalized Disposition: PACU
--- NOTE | 2020-07-05 15:26 | SUR.PHASEI ---
Patient somnolent but arouses easily to voice.
[2020-07-05] MEDS: MIDAZOLAM 5 MG/5 ML VIAL IV (15:32)
[2020-07-05] MEDS: fentaNYL 250 MCG/5 ML INJ IV (15:34)
--- NOTE | 2020-07-05 15:49 | SUR.PHASEI ---
Report given to Matthew.
[2020-07-05] MEDS: VANCOMYCIN 125 MG CAPSULE PO ×2 (17:02→21:40)
[2020-07-05] MEDS: GABAPENTIN 300 MG CAPSULE 900 MG PO (21:29)
[2020-07-05] MEDS: MELATONIN 3 MG TABLET 6 MG PO (21:29)
[2020-07-06] VITALS: BP 138/76; PULSE 91; RESP 18; TEMP 36.1; O2SAT 95
[2020-07-06] MEDS: ONDANSETRON 4 MG/2 ML INJ IV ×4 (01:49→10:24)
[2020-07-06] MEDS: HYDROMORPHONE 0.5 MG INJ 0.25 MG IV ×3 (01:49→10:22)
[2020-07-06] MEDS: LACTATED RINGERS 1,000 ML 100 ML IV (03:16)
[2020-07-06] MEDS: VANCOMYCIN 125 MG CAPSULE PO ×2 (04:29→13:18)
[2020-07-06 05:29] VITALS: BP 133/87; PULSE 90; RESP 16; TEMP 36; O2SAT 97
[2020-07-06] MEDS: metroNIDAZOLE 500 MG/100 ML PIGGYBACK 100 MG IV (05:45)
[2020-07-06 06:04] LABS: Add Manual Diff / Slide Review NO; Basophils Absolute Auto 0 /uL (0-100); Basophils Percent Auto 0.1 % (0-2); Eosinophils Absolute Auto 0 /uL (0-450); Hematocrit 30.3 % (36-46); Hemoglobin 9.9 g/dL (12.0-16.0); Lymphocytes Absolute Auto 1000 /uL (1100-4500); Lymphocytes Percent Auto 9.5 % (25-40); Mean Corpuscular HGB Conc 32.6 % (30-36); Mean Corpuscular Hemoglobin 25.8 PG (26-34); Mean Corpuscular Volume 79.1 fL (80-100); Monocytes Absolute Auto 900 /uL (0-900); Monocytes Percent Auto 8.2 % (3-14); Neutrophils Absolute Auto 8600 /uL (1500-7000); Neutrophils Percent Auto 82.2 % (50-75); Platelet Count 556 X10^3/uL (150-400); Red Blood Cell Count 3.83 X10^6/uL (4.0-5.2); Red Cell Distribution Width 16.4 % (11.6-14.8); White Blood Cell Count 10.5 X10^3/uL (4.5-11.0)
[2020-07-06 06:19] LABS: Alanine Aminotransferase 14 IU/L (<35); Albumin 2.3 g/dL (3.5-5.0); Albumin Globulin Ratio 0.8 (1.0-2.8); Alkaline Phosphatase 189 U/L (38-126); Aspartate Aminotransferase 50 IU/L (14-36); BUN Creatinine Ratio 15.3 (6-22); Bilirubin Total 0.5 mg/dL (0.2-1.3); Bilirubin Unconjugated 0.3 mg/dL (0.0-1.1); Blood Urea Nitrogen 13 mg/dL (7-17); Calcium 8.5 mg/dL (8.4-10.2); Carbon Dioxide 29 mmol/L (22-32); Chloride 101 mmol/L (98-107); Estimated Glomerular Filt Rate > 60.0 mL/min (>60); Globulin 2.9 g/dL (1.7-4.1); Glucose 104 mg/dL (70-100); HEMOLYSIS 16 (0-50); Magnesium 2.2 mg/dL (1.6-2.3); Potassium 4.4 mmol/L (3.4-5.1); Sodium 133 mmol/L (137-145); Total Protein 5.2 g/dL (6.3-8.2)
[2020-07-06 06:35] LABS: Procalcitonin 8.65 ng/mL (<0.5)
--- NOTE | 2020-07-06 08:21 | PC.NURSE ---
Patient seems in better spirits today, she is not anxious and dilaudid and zofran given earlier this morning has been helpful to patient. She did void and get up to have a bowel movement. There was no stool, just a small amount of pink/red blood in the toilet. is aware of this. Patient is moving independently in her room.Her just arrived, she is transferring to .. at some point today. States that she will take po medications today but this does upset her stomach. States that the Doctor encouraged her to take them.
[2020-07-06 08:27] VITALS: BP 136/81; PULSE 92; RESP 16; TEMP 36.7; O2SAT 97
[2020-07-06] MEDS: KETOROLAC 15 MG/ML VIAL IV (10:22)
[2020-07-06] MEDS: GABAPENTIN 600 MG TABLET PO (10:24)
[2020-07-06] MEDS: PB8 PROBIOTIC 1 EACH PO (10:24)
[2020-07-06] MEDS: PANTOPRAZOLE 40 MG VIAL IV (10:24)
[2020-07-06] MEDS: NYSTATIN SUSP 500,000 UNIT/5 ML UDC 500000 UNIT PO (10:24)
--- NOTE | 2020-07-06 11:06 | PT-IP ANOTE ---
11:06 Pt in bed with in room. She is very groggy and is refusing treatment for the second time this am. Will most likely transfer out today. Pt is moving around in room independently and showered herself this am.
--- NOTE | 2020-07-06 11:41 | P.DS_ITS ---
History of Present Illness History of Present Illness Date Patient Seen: 07/06/20 Time Patient Seen: 11:42 Chief complaint: pnuemonia, meds not helping, feels worse Narrative: As per MELISSA Au: Ms. Ashley Stephens is a 50-year-old female with a history significant for severe diverticulosis, chronic lumbar spine pain with radiculopathy followed at [facility], prolapsed hemorrhoids and morbid obesity who presents to the emergency department with nausea vomiting and bloody diarrhea for 2 weeks. The patient reports being seen at the [facility] and was diagnosed with pneumonia 2 weeks ago. She was started on doxycycline and after 3 days developed bloody diarrhea. Patient has associated symptoms of fatigue and weakness. The patient was seen at [facility] in December 2019 following a similar situation with the patient was started on antibiotics and had subsequent bloody diarrhea for 2 weeks. Patient states the condition has worsened with prolapsed hemorrhoids that are exquisitely tender. She reports fevers with chil ls and reports no known COVID-19 exposures. She has no complaints of headaches or dizziness nasal congestion or sore throat. She reports no complaints of chest pain or pressure or palpitations. She has generalized abdominal discomfort prior to episodes of diarrhea and endorses complaints of heartburn. She denies urinary symptoms of urgency frequency or burning. The patient has chronic low back pain treated with nonsteroidal anti-inflammatories gabapentin and physical therapy. Upon arrival the ER the patient is afebrile with temperature 97.5?, heart rate of 93, blood pressure 132/84, respiratory rate 20 for saturating 100% on room air. A CT of the abdomen and pelvis finds pancolonic thickening with stranding of from the cecum to the rectum, numerous reactive lymph nodes along the course, hepatic steatosis and mild hepatomegaly. Chest x-ray shows no acute cardiopulmonary processes. On laboratory analysis the patient has white count of 10.1 with no shift, hemoglobin of 10.8 with hematocrit of 32.8 and platelets of 580. She has a PT of 13.9, INR of 1.2 and a PTT of 24. The patient has a sodium of 135, potassium of 3.1 and magnesium at 2.6. She is alkalotic with a CO 34 and has a BUN of 12 and a creatinine of 1.07. Her nonfasting glucose is 95. She has a total bilirubin 0.7, AST 35, ALT of 12 and alkaline phosphatase 177. Her albumin is 2.8. Total CK is 26, troponin is negative at 0.012 and has procalcitonin of 0.24. In the ER the patient received Flagyl and Vanco IV following blood cultures. She received Zofran and potassium 40 mg orally. She received normal saline 1 L. The patient is admitted to the medicine service for acute colitis. Discharge Providers Provider Date of admission: 07/02/20 16:15 Discharge Date: 07/06/20 Primary care physician: Randee Oconnell DO Consults: 07/02/20 18:18 Consult to General Surgery Routine Comment: Consulting Provider: Sami Carranza Reason for consultation: colitis Has provider been notified: Yes 07/02/20 21:16 Consult to Dietitian, Adult Routine Comment: Reason For Exam: Obesity BMI 43.3 Consult to Discharge Planning Routine Comment: Consult to Physical Therapy Evaluate & Treat Comment: Chronic lumbar back pain, weakness Physician Instructions: Evaluate and Treat 07/03/20 04:08 Consult to Occupational Therapy Evaluate & Treat Comment: Physician Instructions: Evaluate and treat Discharge provider: Baron Pal DO Summary Hospital Course Discharge Diagnosis: Please see hospital course by problem list noted below. Hospital Course: Ms. Ashley Stephens is a 50-year-old female with a history significant for severe diverticulosis, chronic lumbar spine pain with radiculopathy followed at [facility], prolapsed hemorrhoids and mo rbid obesity who presents to the emergency department with nausea vomiting and bloody diarrhea for 2 weeks. She was treated initially with IV flagyl, she was intolerant of ciprofloxacin from prior trials. Her symptoms had not markedly improved with antibiotics alone, and her GI PCR and stool culture were negative so she was empirically started on methylprednisolone 20 mg q.8 hrs. Patient continued to have bloody diarrhea, however the frequency was much less but she continued to have abdominal pain, which changed in care to to epigastric and bandlike quality. She had a repeat CT scan which showed new onset acute pancreatitis which was not present on the admission CT imaging. There also no jose to be multiple splenic lesions up to 1.4 cm, and still present colitis. Surgery was reconsulted, who performed of flex sig with biopsies which noted pseudomembranous colitis. Patient was started on oral vancomycin, repeat GI testing was negative for C diff or toxin. Biopsies are pending. Surgery recommended transfer for GI evaluation of severe pseudomembranous colitis, as well as the possibility of more specialized surgical care in the possibility she would need a colectomy, however this appears be less than less likely as her symptoms are mild and she is hemodynamically stable. After discussion with GI, she was continued on IV Flagyl, oral vancomycin, and steroids for empiric treat ment of C difficile and possible inflammatory bowel disease. Patient will be transferred for further specialty evaluation at [facility] for severe pseudomembranous colitis, accepting hospitalist Dr. Muse. 1. Severe pseudomembranous colitis, present on admission, active. -presented wth bloody diarrhea and abdominal pain with known hemorrhoids. Diarrhea is slowly improving but she continues to have bloody bowel movements. unclear if this improvement is due to steroids or antibiotics at this time. -CT scan on admission with pancolitis with thickening and stranding from the cecum to the rectum with numerous reactive lymph nodes. In retrospect there were also multiple splenic lesions which were noted. No pancreatitis on admission CT. -white count 10.1 with no shift, procalcitonin negative on admission but then jumped to >20 without leukocytosis. Unclear significant of procalcitonin but improved on day of transfer to 8 after oral vancomycin, flagyl, and steroids. -the patient had similar episode December of 2019 following treatment with antibiotics with subsequent bloody diarrhea which seemingly resolved. -Doxycycline has been discontinued which was being given as an outpatient -patient has had adverse reactions to multiple antibiotics including ciprofloxacin. Started on metronidazole but given negative stool panel and no improvement in symptoms started on steroids for possible inflammatory / autoimmune disease. Patient received vancomycin 1000 mg IV in the ER unclear reasons. stool PCR panel has come back completely negative with no C diff. Given rising pro-calcitonin repeat GI panel was sent and was again negative. After flexible sigmoidoscopy continued on IV flagyl and PO vancomycin for empiric coverage of C. difficile in pseudomembranous colitis despite negative GI panel x2 per GI recommendations. -patient has a history of diverticulosis has had a previous partial colectomy. Dr. Carranza, general surgery was initially consulted but thought more infectious etiology. Re-consulted with Dr. Torre and ordered another CT with contrast for further evaluation which is noted below. Made NPO. Surgery performoed sigmoidoscopy and colonic biopsies which showed pseudomembranous colitis. -Repeat CT imaging showing multiple splenic lesions, mildly improved colitis, and new pancreatitis. Differential includes inflammatory bowel disease, autoimmune and infectious etiologies. Biopses pending. Continue steroids, IV flagyl, and PO vancomycin until biopsies return most likely or pending further GI recommendations at accepting facility. Have ordered IgG with subclasses panel for further evaluation, although clinical history is not consistent with IgG 4 disease. Consider infectious disease consultation. HIV testing ordered but has not resulted, would favor repeating at accepting facility as it is unclear when this will result here. 2. Prolapsed hemorrhoids, present on admission, improved. -painful hemorrhoids with attempted reduction a prolapsed hemorrhoids by the ER physician with reported partial success. -patient is used glycerin application to decrease rectal in hemorrhoidal irritation. -ordered preparation H with phenylephrine and glycerin as the patient is allergic to procaine making many hemorrhoidal medications unavailable. -Dr. Carranza general surgery has been consulted as noted above and patient has symptomatically improved with hemorrhoidal creams. 3. Pancreatitis, acute, no present on admission. - further imaging ordered included a limited abdominal ultrasound which did not reveal any biliary pathology. Triglycerides were 156. Patient does not drink EtOH. Possibilities include autoimmune but more likely medication related. St eroids and flagyl are both implicated in drug induced pancreatitis but at this time may be able to stop flagyl but not likely steroids. Defer further management to gastroenterology. Patient advanced to clears which she tolerated without epigastric pain but had worsened bloody diarrhea. Will continue clears. -after CT imaging ordered a lipase which was 6580 from normal on admission. -follow-up IgG subclasses as previously ordered. 4. Multiple splenic lesions, acute, present on admission -as noted above, Repeat CT imaging showing multiple splenic lesions, improved colitis, and new pancreatitis. Differential includes inflammatory bowel disease, autoimmune and infectious etiologies. Follow up biopsies. Continue steroids and antibiotics above. Have ordered IgG panel for further evaluation. Splenic lesions can be seen in inflammatory bowel disease or rarer causes of infectious pseudomembranous colitis. 3. Acute hypokalemia, present on admission. Resolved. -Secondary to GI lossses. -Initial potassium level 3.1 on admission. Received 40 IVmEq and 20 mEq IV. Potassium level now 4.4. -Continue to monitor potassium level and replete as necessary. 4. Asymptomatic bacteriuria, present on admission. Stable. -patient presently without symptoms of UTI, no urgency frequency or burning. -urinalysis ordered and finds trace protein, trace ketones, 1+ blood, trace leukocyte esterase, wbc's 5-10 and few bacteria, reflex to culture. -the patient remains asymptomatic and has significant adverse reactions to antibiotics. -urine culture with 10K-20K colonies of staph epidermidis. Will hold off on treatment. 5. Oral thrush, present on admission. Resolving. -Patient had oral and lingual pain with right buccal stomatitis and thrush on the tongue on admission. -Continue nystatin swish and spit 2 times daily until resolved. 6. Chronic low back pain, chronic, present on admission, Stable -Patient has degenerative disc disease at L5-S1 with history of radiculopathy -patient's pain has been control meloxicam, the patient has been nauseous and vomiting ordered Toradol 15 mg IV every 6 hours as needed for pain. -Continue gabapentin 600 mg 3 times daily. -Continue physical therapy evaluation and treatment. 7. Generalized weakness, present on admission, active -Patient with longstanding low back pain with morbid obesity, deconditioning, diarrhea with bleeding and worsening anemia, dehydration, and severely painful hemorrhoids. -Continue physical therapy evaluation and treatment. Occupational therapy assessed patient with no needs. Code status: Full code, patient designates her as surrogate decision maker. VTE prophylaxis: Bilateral SCDs, chemical prophylaxis deferred related to bloody diarrhea. Disposition: Transfer to [facility] for higher level of care, GI consultation and possibly infectious disease. Time Spent with Patient Time spent: Greater than 30 minutes Exam Vital Signs (past 8 hours): - 07/06/20 05:29 07/06/20 08:27 Temperature 96.8 F L 98.0 F Pulse Rate 90 92 H Respiratory Rate 16 16 Blood Pressure 133/87 136/81 Pulse Oximetry 97 97 Oxygen Delivery Method Room Air Oxygen Flow Rate 0 Narrative Exam Narrative: General: Older female lying in bed and appears uncomfortable, morbidly obese, appropriately interactive HEENT: Normocephalic, atraumatic. External ears without defect. Pupils equal, round, and reactive to light. Anicteric sclerae, moist conjunctivae, and no lid lag. Oropharynx free of erythema and cobble stoning with moist mucosa. Small amount of oral thrush on the tongue. Neck: Supple with full range of motion. No jugular venous distension. No bruits. No lymphadenopathy or thyromegaly. Cardiovascular: Regular rate and rhythm without murmurs, rubs, or gallops appreciated. Pulmonary: Clear to auscultation bilaterally without crackles, wheezes, or rhonchi. Normal respiratory effort with no use of accessory muscles. Abdomen: Soft, obese, bowel tones present. non-distended, improved tenderness now in lower quadrants. No hepatosplenomegaly or masses appreciated but limited due to obesity. Extremities: No clubbing, cyanosis, or edema. Lymphedema. Skin: Normal temperature, turgor, and texture; no rash, ulcers, or subcutaneous nodules appreciated. Neurological: Cranial nerves grossly intact. No focal deficits. Psychiatric: mildly anxious. Alert and oriented to person, place, and time. Objective Labs Result Diagrams: 07/06/20 05:45 07/06/20 05:45 Labs: Laboratory Results - last 24 hr 07/05/20 07/05/20 07/05/20 10:00 14:22 14:22 WBC RBC Hgb Hct MCV MCH MCHC RDW Plt Count Neut % (Auto) Lymph % (Auto) [place] % (Auto) Eos % (Auto) Baso % (Auto) Neut # (Auto) Lymph # (Auto) [place] # (Auto) Eos # (Auto) Baso # (Auto) Sodium Potassium Chloride Carbon Dioxide BUN Creatinine Estimated GFR BUN/Creatinine Ratio Glucose Calcium Magnesium Total Bilirubin Conjugated Bilirubin Unconjugated Bilirubin AST ALT Alkaline Phosphatase Total Protein Albumin Globulin Albumin/Globulin Ratio Triglycerides 156 H Lipase 6580 H D Procalcitonin Stl C. cayetanensis PCR Not detected Stool Rotavirus (PCR) Not detected Stool Adenovirus (PCR) Not detected Stool Astrovirus (PCR) Not detected Stool Cryptosporidium PCR Not detected Stl E.coli Shiga Tox PCR Not detected St Sh/Enteroin Ecoli PCR Not detected Stool E coli O157 PCR Not detected Stl Enterotoxigenic E PCR Not detected Stool EPEC (PCR) Not detected Stl E. histolytica PCR Not detected Stool Giardia Lamblia PCR Not detected Stool Sapovirus (PCR) Not detected Stl P. shigelloides PCR Not detected St Y.enterocolitica PCR Not detected Stool Vibrio (PCR) Not detected Stl Vibrio cholerae PCR Not detected Stl Enteroaggr Ecoli PCR Not detected Stl Norovirus GI/GII PCR Not detected Campylobacter (PCR) Not detected C. difficile Tox (PCR) Not detected Salmonella (PCR) Not detected 07/06/20 07/06/20 07/06/20 05:45 05:45 05:45 WBC 10.5 RBC 3.83 L Hgb 9.9 L Hct 30.3 L MCV 79.1 L MCH 25.8 L MCHC 32.6 RDW 16.4 H Plt Count 556 H Neut % (Auto) 82.2 H Lymph % (Auto) 9.5 L Socorro % (Auto) 8.2 Eos % (Auto) 0.0 L Baso % (Auto) 0.1 Neut # (Auto) 8600 H Lymph # (Auto) 1000 L Socorro # (Auto) 900 Eos # (Auto) 0 Baso # (Auto) 0 Sodium 133 L Potassium 4.4 Chloride 101 Carbon Dioxide 29 BUN 13 Creatinine 0.85 Estimated GFR > 60.0 BUN/Creatinine Ratio 15.3 Glucose 104 H Calcium 8.5 Magnesium 2.2 Total Bilirubin 0.5 Conjugated Bilirubin 0.0 Unconjugated Bilirubin 0.3 AST 50 H ALT 14 Alkaline Phosphatase 189 H Total Protein 5.2 L Albumin 2.3 L Globulin 2.9 Albumin/Globulin Ratio 0.8 L Triglycerides Lipase Procalcitonin 8.65 H Stl C. cayetanensis PCR Stool Rotavirus (PCR) Stool Adenovirus (PCR) Stool Astrovirus (PCR) Stool Cryptosporidium PCR Stl E.coli Shiga Tox PCR St Sh/Enteroin Ecoli PCR Stool E coli O157 PCR Stl Enterotoxigenic E PCR Stool EPEC (PCR) Stl E. histolytica PCR Stool Giardia Lamblia PCR Stool Sapovirus (PCR) Stl P. shigelloides PCR St Y.enterocolitica PCR Stool Vibrio (PCR) Stl Vibrio cholerae PCR Stl Enteroaggr Ecoli PCR Stl Norovirus GI/GII PCR Campylobacter (PCR) C. difficile Tox (PCR) Salmonella (PCR) Discharge Plan Discharge Plan Disposition: er [facility] Discharge orders & Medications Follow up/Referrals: Randee Oconnell DO [Primary Care Provider] - Discharge Health Status Health Concerns: pseudomembranous colitis pancreatitis Splenic lesions Discharge Data Primary Care Provider: Randee Oconnell
--- NOTE | 2020-07-06 12:02 | PC.NURSE ---
Addendum entered by Kristi Atkins R.N. 07/06/20 13:46: Patient discharged to [facility], report called to SHOBHA Topete.. Addendum entered by Kristi Atkins R.N. 07/06/20 12:05: Patients midline to l.upper arm not flushing well, it was positional. Used a small amount of a heparin flush and this helped iv to infuse better. She is still on her LR at 100cc/hr and denies any further pain at this time. Original Note: Patient seems to be doing better this am. Just given toradol and a small dose of .25mg of dilaudid, along with zofran and this combination seems to be most helpful to patient and abdominal pain. She was also given her po medications, which she tolerated well. She is on sips of clear liquids and doing okay with just ice water. Abomen is rotund and bowel tones are hypoactive. in room and very attentive to patient needs.
[2020-07-06 12:22] VITALS: BP 135/74; PULSE 96; RESP 20; TEMP 36.5; O2SAT 94
--- NOTE | 2020-07-06 12:55 | CM.DPC ---
Addendum entered by Erika Odom LPN 07/06/20 14:23: A check in now with RN coordinator Macey shows that pt was accepted by [facility] and was transferred at about 1330 today. Macey confirmed that a prior authorization from [facility] was not needed for this urgent transfer. Original Note: DCP: continued: Dr. Pal explained this morning that pt needed to transfer to a higher level of care and he had started this process last night. Payer [facility]: Initial plan for Anh Victor was unsuccessful as further inquiries showed they are not network with [facility]. MARLON Galvan and UR SHOBHA Mckeon both helped provide some information re the transfer process to both Dr. Pal and RN coordinator Macey as there does not seen to be a specific process in place for the coordinators to follow with this insurance. Was updated later that Macey was now working on possible transfer to [facility] and it sounds like they do accept [facility] patients.
[2020-07-08 13:36] LABS: IgG Subclass 1 538 mg/dL (248-810); IgG Subclass 2 294 mg/dL (130-555); IgG Subclass 3 39 mg/dL (15-102); IgG Subclass 4 23 mg/dL (2-96); IgG Total 949 mg/dL (586-1602)
== END 2020-07-06 13:15 | disposition short-term general hospital (02) | DRG 371 ==
LOC: ED 15:50 → AC 16:17
PROVIDERS: Internal Medicine; Nurse Practitioner Adult Health; Specialist; Admitting Provider Internal Medicine; Emergency Provider Emergency Medicine; Family Provider Family Medicine; PCP Family Medicine; Referring Provider Emergency Medicine; Visit Provider Internal Medicine
PROC: 0DJD8ZZ Inspection of Lower Intestinal Tract, Via Natural or Artificial Opening Endoscopic (ICD-10-PCS; CPT 45378; principal; 2020-07-05 14:55)
DX: A04.72 Enterocolitis due to Clostridium difficile, not specified as recurrent (principal); K85.90 Acute pancreatitis without necrosis or infection, unspecified; B37.0 Candidal stomatitis; Z68.41 Body mass index [BMI] 40.0-44.9, adult; E87.6 Hypokalemia; R82.71 Bacteriuria; E66.01 Morbid (severe) obesity due to excess calories; K64.8 Other hemorrhoids; D73.89 Other diseases of spleen; M51.17 Intervertebral disc disorders with radiculopathy, lumbosacral region; R53.1 Weakness; Z11.59 Encounter for screening for other viral diseases
CPT/HCPCS: 36415; 71045; 74176; 74177; 76705; 80048; 80053; 80076; 81001; 81003; 81025; 82550; 82784; 82787; 83690; 83735; 84145; 84478; 84484; 85025; 85610; 85730; 87040; 87045; 87077; 87086; 87147; 87177; 87186; 87493; 87507; 87635; 87899; 96361; 96365; 96367; 96375; 97116; 97161; 99284; C9113; J1170; J1200; J1642; J1885; J2250; J2405; J2920; J3010; J3480; Q9967

== ENCOUNTER → 2020-12-29 17:47 | Outpatient (CLI) | payer OTHER, SELFPAY ==
[2020-07-02 19:46] VITALS: BMI 43.3
--- NOTE | 2020-12-29 | DI.MRI.S_ITS ---
PROCEDURE: MR FOOT RT WO CON INDICATIONS: PAIN IN JOINT TECHNIQUE: Noncontrast sagittal T1 spin echo and T2 fast spin echo with fat saturation, long-axis T1 spin echo and T2 fast spin echo with fat saturation, short-axis T1 spin echo and T2 fast spin echo with fat saturation through the forefoot. COMPARISON: None. FINDINGS: Image quality: Excellent. Bones and joints: No bone marrow contusions or metatarsal stress fractures. The sesamoid bones appear in expected positions, without internal edema. Moderate 1st metatarsophalangeal joint degeneration. No intraosseous lesions. Soft tissues: The visualized plantar foot muscles demonstrate normal signal and bulk. Visualized flexor and extensor tendons appear intact, without tenosynovitis. The distal insertions of the peroneus brevis and longus tendons appear intact. The principal Lisfranc ligament appears intact. No soft tissue ganglion cysts or bursal fluid collections. Sagittal images demonstrate no evidence for plantar plate tears. Circumferential subcutaneous cellulitis. 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 Associated moderate joint effusion. Circumferential subcutaneous cellulitis. Dictated by: Arun Miles M.D. on 12/30/2020 at 13:55 Approved by: Arun Miles M.D. on 12/30/2020 at 13:59
--- NOTE | 2020-12-29 17:50 | DI.MRI.S_ITS ---
PROCEDURE: MR ANKLE RT WO CON INDICATIONS: PAIN RIGHT ANKLE AND JOINTS OF RIGHT FOOT TECHNIQUE: Noncontrast sagittal T1 spin echo and T2 fast spin echo with fat saturation, axial proton density fast spin echo and T2 fast spin echo with fat saturation, coronal T1 spin echo and T2 fast spin echo with fat saturation through the ankle/hindfoot. COMPARISON: [facility], MR, MR ANKLE RT WO CON, 10/26/2018, 20:57. FINDINGS: Image quality: Excellent. Bones and joints: No bone marrow contusions or fractures. Scattered degenerative subchondral sclerosis and spurring. Circumferential subcutaneous edema/cellulitis. Hindfoot and midfoot joint degeneration with spurring and sclerosis. No hindfoot coalitions. No osteochondral injuries of the talar dome. Small tibiotalar joint effusion. Subtalar joint degeneration. Medial structures: Posterior tibialis intact. Mild posterior tibialis tenosynovitis. Flexor digitorum longus intact. Flexor hallucis longus tendon intact. The posterior tibial neurovascular bundle appears normal within the tarsal tunnel, without extrinsic mass effect. Deltoid ligament complex appears intact. The spring ligament appears intact. Lateral structures: Anterior talofibular ligament intact. Calcaneofibular ligament intact. Posterior talofibular ligament intact. Anterior and posterior tibiofibular ligaments appear intact, as is the intermalleolar ligament. Tibiofibular syndesmosis is normal in width at 2 mm or less. Peroneus longus and brevis tendons appear normal. Minimal peroneal tenosynovitis. Bony peroneal tubercle and retrotrochlear prominence are normal in size. Sinus tarsi demonstrates normal fatty signal, without edema, fibrosis, or cyst formation. Anterior structures: Tibialis anterior intact. Extensor hallucis longus intact. Extensor digitorum longus tendon intact. Dorsal talonavicular ligament grossly intact although there is thickening suggestive of chronic sprain. No interval change Posterior and plantar structures: Achilles tendon is intact. Mild medial band plantar fasciitis, age indeterminate. No abductor digiti quinti muscle atrophy to suggest Car[place]quillo neuropathy. IMPRESSION: Hindfoot joint degeneration as above, in particular involving the subtalar joint. This appears progressed since 10/26/18. Small tibiotalar joint effusion. This finding grossly unchanged Circumferential lower leg subcutaneous cellulitis, nonspecific. No definite interval change Minimal peroneal and mild posterior tibialis tenosynovitis, which appears stable to minimally improved. Dictated by: Arun Miles M.D. on 12/30/2020 at 13:17 Approved by: Arun Miles M.D. on 12/30/2020 at 13:55
== END ==
PROVIDERS: Family Provider Family Medicine; PCP Family Medicine; Referring Provider Family Medicine; Visit Provider Family Medicine
DX: M25.571 Pain in right ankle and joints of right foot (principal); M19.071 Primary osteoarthritis, right ankle and foot; M25.471 Effusion, right ankle; L03.115 Cellulitis of right lower limb
CPT/HCPCS: 73718; 73721

== ENCOUNTER → 2021-01-13 15:53 | Outpatient (CLI) | payer OTHER, SELFPAY ==
[2020-07-02 19:46] VITALS: BMI 43.3
--- NOTE | 2021-01-13 15:56 | DI.MG.S_ITS ---
BILATERAL DIGITAL SCREENING MAMMOGRAM 3D/2D WITH CAD: 01/13/2021 CLINICAL: Routine screening. Family history of breast cancer. Comparison is made to exams dated: 10/02/2018 mammogram, 01/09/2015 mammogram, and 05/04/2012 mammogram - outside location. There are scattered fibroglandular elements in both breasts. Current study was also evaluated with a Computer Aided Detection (CAD) system. No significant masses, calcifications, or other findings are seen in either breast. There has been no significant interval change. IMPRESSION: NEGATIVE There is no mammographic evidence of malignancy. A 1 year screening mammogram is recommended. This exam was interpreted at Station ID: [id number]. NOTE: For mammograms, a report in lay terms will be sent to the patient. Approximately 15% of breast malignancies will not be visualized mammographically. In the management of a palpable breast mass, a negative mammogram must not discourage biopsy of a clinically suspicious lesion. Electronically Signed By: Boni herman/kanu:01/13/2021 17:00:19 letter sent: Normal Exam ACR BI-RADS Category 1: Negative [id number]
== END ==
PROVIDERS: Family Provider Family Medicine; PCP Family Medicine; Referring Provider Family Medicine; Visit Provider Family Medicine
DX: Z12.31 Encounter for screening mammogram for malignant neoplasm of breast (principal); Z80.3 Family history of malignant neoplasm of breast
CPT/HCPCS: 77063; 77067

== ENCOUNTER 2021-07-13 09:16 | Emergency (ER) | payer OTHER, SELFPAY ==
[2020-07-02 19:46] VITALS: BMI 43.3
[2021-07-13] VITALS (8 sets, daily range): BP systolic 121–155; BP diastolic 68–76; PULSE 43–74; RESP 16–20; TEMP 36.8; O2SAT 96–100; BMI 47.2
--- NOTE | 2021-07-13 09:37 | ED.BACK ---
HPI - Back Pain/Injury General Chief Complaint: Back Pain/Injury Stated Complaint: back spasms Time Seen by Provider: 07/13/21 09:21 History of Present Illness HPI Narrative: The patient is a 51-year-old female with history of ulcerative colitis, chronic back pain, obesity presenting today with worsening back pain. She spent a whole week getting a baby shower together for her daughter it was 2 days ago. She work extra hard during that day. She had some discomfort yesterday however this morning she has intense pain in her thoracic and lower back. She has bilateral leg weakness at baseline it is not any worse but she cannot move due to severe back pain. She is having left thoracic spasm. No numbness tingling or weakness. No changes in bowel or bladder habits in fact she states she has to use the restroom now. She was given fentanyl by EMS she states that multiple pain medications make her extremely nauseous. Related Data Home Medications Medication Instructions Recorded Confirmed Acidophilus Probiotic 1 tab PO BID #0 08/20/10 07/02/20 methylphenidate HCl 10 mg tablet 10 mg PO DAILY #0 08/20/10 07/02/20 meloxicam 15 mg tablet 15 mg PO DAILY 05/14/19 07/02/20 cyclobenzaprine 5 mg tablet 5 mg PO DAILY PRN 01/10/20 07/02/20 gabapentin 300 mg capsule 600 mg PO QAM 01/10/20 07/03/20 Previous Rx's Medication Instructions Recorded diazepam 5 mg tablet (Valium) 5 mg PO Q12HR PRN #10 tab 07/13/21 diazepam 5 mg tablet (Valium) 5 mg PO Q12HR PRN #10 tab 07/13/21 hydromorphone 2 mg tablet 2 mg PO Q6H PRN #14 tab 07/13/21 (Dilaudid) hydromorphone 2 mg tablet 2 mg PO Q6H PRN #14 tab 07/13/21 (Dilaudid) ondansetron 4 mg disintegrating 4 mg PO Q6HR PRN #10 tab 07/13/21 tablet Allergies Allergy/AdvReac Type Severity Reaction Status Date / Time iodine Allergy Unknown Verified 01/10/20 21:17 Penicillins Allergy Unknown Verified 01/10/20 21:17 procaine Allergy Unknown Verified 01/10/20 21:17 ciprofloxacin AdvReac Severe Nausea Verified 07/03/20 02:46 vomiting and diarrhea, tendon complication Review of Systems Review of Systems Narrative: GENERAL: Denies chills, fatigue, malaise, fever, sweats, travel HEENT: Denies sinus pain, ear pain, sore throat, difficulty swallowing, neck pain RESPIRATORY: Denies dyspnea, cough, wheezing, hemoptysis, sputum. CARDIOVASCULAR: Denies chest pain, palpitations, orthopnea, edema GASTROINTESTINAL: Denies nausea, vomiting, abdominal pain, diarrhea, constipation, melena. : Denies dysuria, frequency, incontinence, hematuria, urinary retention, flank pain. MUSCULOSKELETAL: See HPI SKIN: No rash, no erythema, no pruritus NEUROLOGIC: Denies weakness, dizziness, headache, numbness, change in speech, confusion PSYCHIATRIC: No concerning psychosocial issues. 12 point review of systems is negative except for those stated above and HPI Patient History Medical History (Updated 07/13/21 @ 14:48 by Cintia May DO) Degenerative disc disease at L5-S1 level Diverticulitis Hemorrhoids History of otosclerosis Lumbosacral spondylosis with radiculopathy Morbid obesity with BMI of 40.0-44.9, adult Ulcerative colitis Surgical History History of colonoscopy History of ear surgery History of foot surgery History of hysterectomy History of partial colectomy Family History Father Heart disease COPD (chronic obstructive pulmonary disease) Mother COPD (chronic obstructive pulmonary disease) Diabetes mellitus Social History household members: spouse Smoking Status: Never smoker alcohol intake: current Smoking Status: Never smoker alcohol intake frequency: other Substance Use Type: does not use Exam Initial Vital Signs Initial Vital Signs: Vital Signs Temperature 98.3 F 07/13/21 09:29 Pulse Rate 58 L 07/13/21 09:29 Respiratory Rate 20 07/13/21 09:29 Blood Pressure 155/68 H 07/13/21 09:29 Pulse Oximetry 100 07/13/21 09:29 GENERAL: Alert female appears in pain BMI 47 HEENT: Head atraumatic,EOMI, pupils reactive, face symmetric, moist mucous membranes CARDIOVASCULAR: Regular rate and rhythm without murmurs, rubs or gallops. RESPIRATORY: Breath sounds equal bilaterally, no wheezes rales or rhonchi. ABDOMEN: Soft, nontender. Normoactive bowel sounds all 4 quadrants. No guarding or rebound. BACK: No vertebral tenderness or step-off she does have spasm in her left thoracic area pain all across her lower lumbar area. EXTREMITIES: Normal range of motion, no clubbing or edema. Neurovascularly intact. Strong bilateral distal pedal pulses intact NEUROLOGICAL: Able to move lower extremities sensation to light touch intact bilaterally no cranial nerve deficits SKIN: Warm, dry, no laceration, no petechiae, no rashes or lesions. Course Orders Ordered: Discontinued Medications Acetaminophen (Acetaminophen 325 Mg Tablet) 975 mg PO NOW ONE Stop: 07/13/21 12:22 Last Admin: 07/13/21 12:29 Dose: 975 mg Documented by: SINDI Diazepam (Diazepam 10 Mg/2 Ml Syringe) 2 mg IV NOW ONE Stop: 07/13/21 09:39 Last Admin: 07/13/21 09:47 Dose: 2 mg Documented by: SINDI Diazepam (Diazepam 10 Mg/2 Ml Syringe) 2 mg IV NOW ONE Stop: 07/13/21 13:11 Last Admin: 07/13/21 13:33 Dose: 2 mg Documented by: SINDI Hydromorphone HCl (Hydromorphone 1 Mg Inj) 1 mg IV NOW ONE Stop: 07/13/21 09:39 Last Admin: 07/13/21 09:49 Dose: 1 mg Documented by: SINDI Hydromorphone HCl (Hydromorphone 0.5 Mg Inj) 0.5 mg IV NOW ONE Stop: 07/13/21 12:15 Last Admin: 07/13/21 12:30 Dose: 0.5 mg Documented by: SINDI Prednisone (Prednisone 20 Mg Tablet) 40 mg PO NOW ONE Stop: 07/13/21 11:23 Last Admin: 07/13/21 11:34 Dose: 40 mg Documented by: SINDI Vital Signs Vital signs: Vital Signs - 8 hr 07/13/21 09:29 07/13/21 10:18 07/13/21 10:30 Temperature 98.3 F Pulse Rate 58 L 54 L 55 L Respiratory Rate 20 Blood Pressure 155/68 H Pulse Oximetry 100 99 100 07/13/21 11:00 07/13/21 11:30 07/13/21 12:00 Temperature Pulse Rate 49 L 43 L 48 L Respiratory Rate Blood Pressure Pulse Oximetry 100 100 100 07/13/21 12:30 07/13/21 14:02 Temperature Pulse Rate 54 L 74 Respiratory Rate 16 Blood Pressure 121/76 Pulse Oximetry 100 96 MDM - Back Pain/Injury MDM Narrative Medical decision making narrative: The patient is having back spasm after significant overuse. She has chronic back pain at baseline. She is taking gabapentin already. She states she cannot have NSAIDs due to the colitis she previously had GI bleeding and was admitted here a year ago. She says that she has previously tolerated dilaudid home for pain. She took cyclobenzaprine at home did not have much relief. She has no midline pain no is traumatic injury had this time no need for any imaging. She she is given multiple doses of Dilaudid and Valium in the emergency department. She is encouraged to get up and ambulate. She is able to do so with a walker. At home she uses walking sticks at baseline. It is obviously painful for her to walk but she is able to make it to the bathroom slowly. She has no neurologic deficits at this time. This seems to be in acute on chronic exacerbation of pain. She was previously discharged home with dilaudid hydrocodone and Percocet both cause severe nausea and vomiting for her despite anti nausea medication. Have explained to her that she is going to need to follow up with primary care provider for any further pain management. At this time she does feel comfortable going home. is at bedside. They have a lift chair in the house for her as well. Discharge Plan Departure Patient Disposition: Home Clinical Impression: Back muscle spasm Instructions: DI for Back Spasm Activity Restrictions/Additional Instructions: *You have been diagnosed with back spasm *What to do: At this time you have a back spasm. Light activity, light stretching and movement will help even though it is painful. Use walker as needed for getting around. *Continue to take medications as directed Dilaudid 2 mg every 6 hours if needed for severe pain Valium 5 mg every 12 hours for muscle spasm Zofran 4 mg every 6 hours if needed for nausea or vomiting, also before pain medication Tylenol 1000 mg every 6 hours if needed for [id number] pain (this is not an NSAID) *Follow up with your primary care provider in 2-3 days *Return to ER if you should have increasing back pain, leg weakness, loss of urine or stool or any new, worsening or concerning symptoms CONTROLLED SUBSTANCE DISCHARGE (Narcotoic/benzodiazepine/Flexeril/Phenergan) 1. You have been prescribed narcotic medications, it does have acetaminophen/Tylenol/paracetamol in it, DO NOT TAKE MORE THAN 4,00mg in 24 hours of Tylenol. TRAMADOL DOES NOT CONTAIN TYLENOL 2. Please understand that we cannot provide further refills of narcotics, benzodiazepines or controlled substances through the ED and her pain management will need to be through your provider. 3. While on these medications you cannot drive or operate heavy machinery. 4. You cannot sign legal documents or perform any duties such as this. 5. As long as you're taking opiate pain medications he should also be taking a stool softener such as Colace, Dulcolax, MiraLAX or prune juice, to help avoid constipation. Prescriptions: New diazepam [Valium] 5 mg tablet 5 mg PO Q12HR PRN (Reason: muscle spasm) Qty: 10 RF: 0 hydromorphone [Dilaudid] 2 mg tablet 2 mg PO Q6H PRN (Reason: pain) Qty: 14 RF: 0 ondansetron 4 mg tablet,disintegrating 4 mg PO Q6HR PRN (Reason: nausea and vomiting) Qty: 10 RF: 0 hydromorphone [Dilaudid] 2 mg tablet 2 mg PO Q6H PRN (Reason: pain) Qty: 14 RF: 0 diazepam [Valium] 5 mg tablet 5 mg PO Q12HR PRN (Reason: muscle spasm) Qty: 10 RF: 0 No Action methylphenidate HCl 10 mg Tablet 10 mg PO DAILY Qty: 0 RF: 0 Acidophilus Probiotic 1 tab PO BID Qty: 0 RF: 0 cyclobenzaprine 5 mg tablet 5 mg PO DAILY PRN (Reason: Spasms) RF: 0 gabapentin 300 mg capsule 600 mg PO QAM RF: 0 meloxicam 15 mg tablet 15 mg PO DAILY RF: 0 Referrals: Randee Oconnell DO [Primary Care Provider] -
[2021-07-13] MEDS: diazePAM 10 MG/2 ML SYRINGE 2 MG IV ×2 (09:47→13:33)
[2021-07-13] MEDS: HYDROMORPHONE 1 MG INJ IV (09:49)
--- NOTE | 2021-07-13 10:22 | PC.NURSE ---
pt appears comfort improved- calm on stretcher with eyes closed. SATS decreased to mid 70s on RA while appearing asleep, easily responds to questions and while talking SATS improve to mid 90s. 2LNC placed on pt for comfort and SATS 100%
[2021-07-13] MEDS: predniSONE 20 MG TABLET 40 MG PO (11:34)
[2021-07-13] MEDS: ACETAMINOPHEN 325 MG TABLET 975 MG PO (12:29)
[2021-07-13] MEDS: HYDROMORPHONE 0.5 MG INJ IV (12:30)
--- NOTE | 2021-07-13 12:55 | PC.NURSE ---
attempted to raise head of pt- due to pain pt refused. pt medicated for continued pain and educated on plans for ambulation per MD order. pt reluctant at this time.
== END 2021-07-13 14:13 | disposition home or self-care (01) ==
PROVIDERS: Emergency Provider Emergency Medicine; Family Provider Family Medicine; PCP Family Medicine
DX: M62.830 Muscle spasm of back (principal)
CPT/HCPCS: 96374; 96375; 96376; 99284; J1170; J3360

== ENCOUNTER → 2021-08-22 12:24 | Outpatient (CLI) | payer OTHER, SELFPAY ==
[2020-07-02 19:46] VITALS: BMI 43.3
--- NOTE | 2021-08-22 12:25 | DI.MRI.S_ITS ---
PROCEDURE: MR HAND LT WO/W CON INDICATIONS: Pain in left wrist Pain in left finger(s) TECHNIQUE: Noncontrast coronal T1 spin echo and T2 fast spin echo with fat saturation, axial proton density fast spin echo and T2 fast spin echo with fat saturation, axial T1 spin echo with fat saturation, sagittal T1 spin echo and STIR through the hand and fingers. Post-contrast axial, coronal, and sagittal T1 spin echo through the hand and fingers. COMPARISON: None. FINDINGS: Image quality: Excellent. Bones: The bones are normally aligned. No acute fracture or dislocation. Osteoarthritic changes are noted along radial aspect of right wrist and right hand most prominent involving 1st CMC joint and 1st MCP joint. Mild edema involving 1st metacarpal base and adjacent trapeze in is seen without discrete fracture line. No gross bony erosive changes are seen. No suspicious intraosseous lesion. Significant sprain/partial-thickness tear involving anterior oblique ligament and dorsal ligaments of 1st CMC joint is seen. Interphalangeal joint(s): The accessory and proper collateral ligaments appear intact. The volar plate demonstrates normal morphology. The extensor central slips appear intact on sagittal images. Metacarpophalangeal joint(s): The accessory and proper collateral ligaments appear intact, as well as the volar plate and adjacent deep transverse metacarpal ligaments. The sagittal bands of the extensor walker appear normal. Extensor apparatus: The central slips insert normally on the middle phalangeal base. The conjoint and terminal tendons insert normally on the distal phalangeal bases. More proximal portions of the extensor tendons also appear normal. Flexor apparatus: The flexor digitorum superficialis and profundus tendons both appear intact. All annular and cruciform pulleys appear intact, without adjacent soft tissue edema. Soft tissues: Visualized muscles demonstrate normal bulk and internal signal. No intramuscular masses identified. 6 x 8 x 8 mm cystic structure over volar aspect of 4th metacarpal neck deep to the flexor tendon of the 4th digit is seen and likely represent a small ganglion cyst. Possible 1 x 1 x 0.5 cm cyst is also seen over dorsal aspect of proximal carpal rule deep to the extensor tendons. IMPRESSION: 1. Moderate 1st CMC joint osteoarthritis with suggestion of significant sprain/partial-thickness tear involving anterior and dorsal ligaments. [id number] osteoarthritic changes are noted throughout rest of the left hand and wrist joints without suspicious intraosseous lesion. No acute fracture or dislocation. No gross bony erosive changes. 2. Rest of the tendons and ligaments are grossly intact. 3. Possible small ganglion cyst over dorsal aspect of lunate measures 1 x 1 x 0.5 cm in size. Possible small ganglion cysts also seen involving volar aspect of 4th metacarpal neck and is deep to the flexor tendon measures 6 x 8 x 8 mm in size. 4. No abnormal soft tissue enhancement. Dictated by: Kwadwo Cohen M.D. on 08/24/2021 at 11:25 Approved by: Kwadwo Cohen M.D. on 08/24/2021 at 13:49
== END ==
PROVIDERS: Family Provider Family Medicine; PCP Family Medicine; Referring Provider Family Medicine; Visit Provider Family Medicine
DX: M79.645 Pain in left finger(s) (principal); M25.532 Pain in left wrist; M18.12 Unilateral primary osteoarthritis of first carpometacarpal joint, left hand
CPT/HCPCS: 73220; A9579

== ENCOUNTER → 2022-06-05 12:25 | Outpatient (CLI) | payer OTHER, SELFPAY ==
[2020-07-02 19:46] VITALS: BMI 43.3
--- NOTE | 2022-06-05 | DI.MRI.S_ITS ---
PROCEDURE: MR HAND LT WO/W CON INDICATIONS: Right knee pain; Pain left fingers TECHNIQUE: Noncontrast coronal T1 spin echo and T2 fast spin echo with fat saturation, axial proton density fast spin echo and T2 fast spin echo with fat saturation, axial T1 spin echo with fat saturation, sagittal T1 spin echo and STIR through the hand and fingers. Post-contrast axial, coronal, and sagittal T1 spin echo through the hand and fingers. COMPARISON: [facility], , MR HAND LT WO/W CON, 08/22/2021, 13:22. FINDINGS: Image quality: Excellent. Bones: The bones are normally aligned, without marrow contusions or fractures. No intra-osseous lesions. Moderate degenerative changes are again seen at the 1st metacarpal joint with at least high-grade partial-thickness cartilage loss, subchondral edema, subchondral cystic changes as well as marginal osteophyte formation. Findings are stable to minimally progressed when compared to the prior exam from 08/22/2021. [id number] degenerative changes at the 1st metacarpophalangeal joint. Soft tissues: Chronic moderate grade sprain/partial tear of the anterior oblique and dorsal ligaments of the 1st carpometacarpal joint do not appear significantly changed. Moderate tendinosis of the extensor indices is tendon. Mild tendinosis of the extensor pollicis longus tendon. A ganglion cyst is seen at the dorsal aspect of the wrist at the level of the midcarpal joint measuring 13 x 4 x 8 mm, which has mildly increased in size. Additional ganglion cyst is seen at the dorsal aspect of the 3rd and 4th metacarpal bases measuring approximately 10 x 6 x 14 mm. Visualized muscles demonstrate normal bulk and internal signal. No intramuscular masses identified. IMPRESSION: 1. Stable chronic grade sprains/partial tears of the anterior oblique and dorsal ligaments of the 1st carpometacarpal joint. 2. Moderate to severe 1st carpometacarpal joint osteoarthrosis is stable to mildly progressed when compared to the exam from 08/22/2021. 3. Stable mild 1st metacarpophalangeal joint osteoarthrosis. 4. Moderate tendinosis of the extensor indices tendon. Mild extensor pollicis longus tendinosis. 5. Lobular ganglion cyst at the dorsal aspect of the wrist measuring up to 13 mm at the level of the midcarpal joint and 14 mm at the level of the 3rd and 4th metacarpal bases. Dictated by: Elder Cade M.D. on 06/07/2022 at 9:23 Approved by: Elder Cade M.D. on 06/07/2022 at 9:52
--- NOTE | 2022-06-05 13:28 | DI.MRI.S_ITS ---
PROCEDURE: MR KNEE RT WO CON INDICATIONS: Right knee pain; Pain left fingers TECHNIQUE: Noncontrast sagittal PD fast spin echo and T2 fast spin echo with fat saturation, sagittal 3-D FLASH with fat saturation; coronal T1 spin echo and PD fast spin echo with fat saturation, and axial PD fast spin echo with fat saturation through the knee. COMPARISON: None. FINDINGS: Image quality: Excellent. Anterior Cruciate Ligament: Intact. Posterior Cruciate Ligament: Intact. Medial Collateral Ligament: Intact. Lateral Collateral Ligament: Intact. Medial Meniscus: Intact. Lateral Meniscus: Horizontal oblique tearing of the posterior horn and body of the lateral meniscus is seen extending to the inner third of the tibial articular surface. Medial and Lateral Tendons: The semimembranosus tendon insertions and meniscocapsular junction appear intact. Visualized portions of the pes anserinus tendons appear normal. No abnormal bursal fluid. The long and short heads of the biceps femoris tendon appear intact. The popliteus tendon appears intact. No signs of posterolateral corner injury. Iliotibial band appears normal. Anterior Structures: The quadriceps and patellar tendons appear intact. No patellar subluxation. No femoral trochlear dysplasia or ventral trochlear prominence. No edema in the infrapatellar fat pad. Bones: No acute trabecular bone injury or fracture. Medial Femorotibial Cartilage: Mild partial-thickness cartilage irregularity is seen in the weight-bearing portion of the medial femorotibial compartment with formation of small marginal osteophytes. Lateral Femorotibial Cartilage: High-grade and likely full-thickness cartilage loss in the central to posterior weight-bearing portion of the lateral femoral condyle with mild subchondral edema and small marginal osteophytes. Partial-thickness cartilage irregularity is seen at the lateral tibial plateau. Patellofemoral Cartilage: Full-thickness cartilage loss is seen at the median ridge/lateral facet of the patella with subchondral cystic changes and edema and irregularity of the subchondral plate. Partial-thickness cartilage loss is seen at the trochlear groove and lateral femoral trochlea. Soft Tissues: A small joint effusion is present. There is a small medial popliteal cyst. Mild soft tissue edema is seen inferior to the cyst that may indicate prior cyst rupture. Nonspecific subcutaneous soft tissue edema is seen along the anterior and anterolateral soft tissues of the knee, which is nonspecific. There is hypertrophy of the subcutaneous adipose tissues. There is mild generalized grade 1-2 fatty infiltration of the musculature surrounding the knee. IMPRESSION: 1. Horizontal oblique tearing of the posterior horn and body of the lateral meniscus extending to the inner third of the tibial articular surface. 2. Intact cruciate and collateral ligaments. No acute trabecular bone injury. 3. Full-thickness cartilage loss in the anterior compartment at the median ridge/lateral facet of the patella with subchondral cystic changes and edema. Probable full-thickness cartilage loss is seen at the central to posterior weight-bearing portion of the lateral femoral condyle. There is grade 2 chondromalacia in the medial compartment. Tricompartmental marginal osteophytes are present. 4. Small joint effusion. Small medial popliteal cyst with signs of possible prior cyst rupture. Dictated by: Elder Cade M.D. on 06/07/2022 at 9:14 Approved by: Elder Cade M.D. on 06/07/2022 at 9:21
== END ==
PROVIDERS: Family Provider Family Medicine; PCP Family Medicine; Referring Provider Family Medicine; Visit Provider Family Medicine
DX: S83.281A Other tear of lateral meniscus, current injury, right knee, initial encounter (principal); M25.461 Effusion, right knee; M94.261 Chondromalacia, right knee; M71.21 Synovial cyst of popliteal space [Baker], right knee; M25.561 Pain in right knee; S63.682A Other sprain of left thumb, initial encounter; M18.12 Unilateral primary osteoarthritis of first carpometacarpal joint, left hand; M19.042 Primary osteoarthritis, left hand; M67.432 Ganglion, left wrist; M79.645 Pain in left finger(s)
CPT/HCPCS: 73220; 73721